=== PATIENT | male | born 1930 | race Caucasian/White ===

== ENCOUNTER 2016-10-03 20:04 | Observation (INO) | payer MEDICARE, OTHER ==
[~2016-10-03] VITALS: Ht 177.8 cm; Wt 55.2 kg
[~2016-10-03 20:04] MED LIST: AMIO200T PO; ASPI81TA82 PO; CARV3.125 PO; COMBAER INH; ENAL2.5T40 PO; LASI20TA PO; NEXI40CA PO; ROSU20 PO; SPIR25 PO; TRAM50 PO; WARF2TAB PO; Z.0.OXYGEN INH
[2016-10-03 20:05] VITALS: BP 124/75; PULSE 67; RESP 20; TEMP 98.8; O2SAT 97
[2016-10-03] MEDS ORDERED: ASPI1TAB73 PO (20:34)
[2016-10-03] MEDS ORDERED: FURO1TAB62 PO (20:34)
[2016-10-03] MEDS ORDERED: ROSU20 PO (20:34)
[2016-10-03] MEDS ORDERED: WARF4TAB51 PO (20:34)
[2016-10-03] MEDS ORDERED: POTA-243 PO (20:34)
[2016-10-03] MEDS ORDERED: SODIUM CHLORIDE 0.9% FLUSH 5 ML FLUSH IVF PRN ×2 (20:45→22:45)
--- NOTE | 2016-10-03 20:46 | PD ---
HPI Chief Complaint: Respiratory Symptoms Time Seen by Provider: 20:36 Travel History International Travel<30 days: No Contact w/Intl Traveler<30days: No Traveled to known affect area: No History of Present Illness HPI 86-year-old male presents to the emergency department by private transportation the care of his spouse for evaluation of feeling chilled and hot and weak with nonproductive cough for the past 1 or so days. is concerned because he is not breathing. Patient reports she's been mouth breathing on and off for the past month. Patient's had nonproductive cough. states she's had to keep the house at 80F in the home in order to keep him comfortable and he still complains of feeling chilled. Patient has history of atrial fibrillation and is treated with warfarin also has a pacemaker defibrillator is on amiodarone. Patient's had no changes medications. Dr. Rosales is his meteorological equipment repairer. Patient has not contacted his primary care provider regarding his hot and cold symptoms and cough. Patient denies any chest pain. Patient denies any current chills or feeling flushed or shortness of breath at this time. No report of orthopnea. Patient rates his pain 0/10 in intensity. PFSH Past Medical History Narrative Medical Atrial fibrillation on warfarin pacemaker dyslipidemia CHF COPD CVA CAD GERD hypertension sleep apnea; pacemaker defibrillator CABG AAA repair no tobacco use nursing notes reviewed PCP: Kenny; meteorological equipment repairer: Bobby Hx Anticoagulant Therapy: Yes Arthritis: Yes (HANDS) Asthma: No Heart Rhythm Problems: Yes Cancer: No Cardiac Catheterization: Yes Cardiovascular Problems: Yes (PACEMAKER) High Cholesterol: Yes Chest Pain: Yes Congestive Heart Failure: Yes COPD: Yes Cerebrovascular Accident: Yes (cva 2010) Coronary Artery Disease: Yes Endocrine: No GERD: Yes Genitourinary: Yes (FREQUENCY) Hiatal Hernia: Yes Hypertension: Yes Immune Disorder: Yes Kidney Stones: No Musculoskeletal: Yes Neurologic: Yes Psychiatric: No Reproductive: No Respiratory: Yes Migraines: No Renal Failure: No Seizures: No Sleep Apnea: Yes Ulcer: No Tetanus Vaccination: > 5 Years Influenza Vaccination: No Past Surgical History Abdominal Aneurysm Repair: Yes Abdominal Surgery: Yes (UMBILICAL; INGUINAL HERNIA REPAIR) Cardiac Surgery: Yes (CABG; aorta) Coronary Artery Bypass Graft: Yes Ear Surgery: No Endocrine Surgery: No Eye Surgery: No Genitourinary Surgery: No Gynecologic Surgery: No Oral Surgery: No Thoracic Surgery: No Other Surgery: Yes Social History Alcohol Use: Yes (OCCASSIONAL) Tobacco Use: No Substance Use: No Allergies-Medications (Allergen,Severity, Reaction): Coded Allergies: No Known Allergies (Verified , 10/03/16) Reported Meds & Prescriptions Reported Meds & Active Scripts Active Reported Crestor (Rosuvastatin Calcium) 20 Mg Tab 20 Mg PO DAILY Sigrid Aspirin EC Low Dose (Aspirin) 81 Mg Tabdr 81 Mg PO DAILY Lasix (Furosemide) 20 Mg Tab 20 Mg PO TWICE A WEEK Klor-Con 10 (Potassium Chloride) 10 Meq Tab 10 Meq PO DAILY Warfarin 2 Mg Tab 2 Mg PO DAILY Review of Systems Except as stated in HPI: all other systems reviewed are Neg General / Constitutional: Positive: Chills HENT: No: Congestion Cardiovascular: No: Chest Pain or Discomfort Respiratory: Positive: Cough, Shortness of Breath, No: Wheezing Gastrointestinal: No: Nausea, Vomiting, Abdominal Pain Genitourinary: Positive: Frequency, No: Dysuria Musculoskeletal: No: Myalgias, Arthralgias Skin: No Rash Neurologic: Positive: Weakness Psychiatric: No: Anxiety Hematologic/Lymphatic: No: Lymph Node Enlargement Physical Exam Narrative GENERAL: Elderly male in no acute distress no respiratory distress SKIN: Warm and dry. HEAD: Normocephalic. EYES: No scleral icterus. No injection or drainage. NECK: Supple, trachea midline. No JVD or lymphadenopathy. CARDIOVASCULAR: Regular rate and rhythm without murmurs, gallops, or rubs. RESPIRATORY: Breath sounds equal bilaterally crackles right base. No accessory muscle use. GASTROINTESTINAL: Abdomen soft, non-tender, nondistended. MUSCULOSKELETAL: No cyanosis, or edema. Radial and dorsalis pedis pulses 2+ to palpation. BACK: Nontender without obvious deformity. No CVA tenderness. Data Data Last Documented VS Vital Signs Date Time Temp Pulse Resp B/P Pulse Ox O2 Delivery O2 Flow Rate FiO2 10/03/16 21:20 97 Room Air 10/03/16 21:00 66 18 128/68 10/03/16 20:05 98.8 Orders Complete Blood Count With Diff (10/03/16 20:34) Comprehensive Metabolic Panel (10/03/16 20:34) B-Type Natriuretic Peptide (10/03/16 20:34) Prothrombin Time / Inr (Pt) (10/03/16 20:34) Magnesium (Mg) (10/03/16 20:34) Ckmb (Isoenzyme) Profile (10/03/16 20:34) Troponin I (10/03/16 20:34) Urinalysis - C+S If Indicated (10/03/16 20:34) Influenzae A/B Antigen (10/03/16 20:34) Blood Culture (10/03/16 20:34) Iv Access Insert/Monitor (10/03/16 20:34) Electrocardiogram (10/03/16 20:34) Ecg Monitoring (10/03/16 20:34) Oximetry (10/03/16 20:34) Oxygen Administration (10/03/16 20:34) Chest, Single Ap (10/03/16 20:34) Sodium Chloride 0.9% Flush (Ns Flush) (10/03/16 20:45) Lactic Acid (10/03/16 20:34) Ceftriaxone Inj (Rocephin Inj) (10/03/16 22:15) Furosemide Inj (Lasix Inj) (10/03/16 22:15) Labs Laboratory Tests Test 10/03/16 20:45 White Blood Count 11.3 TH/MM3 Red Blood Count 4.21 MIL/MM3 Hemoglobin 12.4 GM/DL Hematocrit 37.1 % Mean Corpuscular Volume 88.0 FL Mean Corpuscular Hemoglobin 29.4 PG Mean Corpuscular Hemoglobin 33.4 % Concent Red Cell Distribution Width 15.8 % Platelet Count 123 TH/MM3 Mean Platelet Volume 7.8 FL Neutrophils (%) (Auto) 88.4 % Lymphocytes (%) (Auto) 6.2 % Monocytes (%) (Auto) 4.6 % Eosinophils (%) (Auto) 0.3 % Basophils (%) (Auto) 0.5 % Neutrophils # (Auto) 10.0 TH/MM3 Lymphocytes # (Auto) 0.7 TH/MM3 Monocytes # (Auto) 0.5 TH/MM3 Eosinophils # (Auto) 0.0 TH/MM3 Basophils # (Auto) 0.1 TH/MM3 CBC Comment DIFF FINAL Differential Comment Prothrombin Time 18.7 SEC Prothromb Time International 1.7 RATIO Ratio Sodium Level 141 MEQ/L Potassium Level 4.4 MEQ/L Chloride Level 108 MEQ/L Carbon Dioxide Level 25.6 MEQ/L Anion Gap 7 MEQ/L Blood Urea Nitrogen 16 MG/DL Creatinine 1.00 MG/DL Estimat Glomerular Filtration 71 ML/MIN Rate Random Glucose 112 MG/DL Lactic Acid Level 1.4 mmol/L Calcium Level 9.3 MG/DL Magnesium Level 2.3 MG/DL Total Bilirubin 0.7 MG/DL Aspartate Amino Transf 22 U/L (AST/SGOT) Alanine Aminotransferase 30 U/L (ALT/SGPT) Alkaline Phosphatase 72 U/L Total Creatine Kinase 33 U/L Troponin I 0.04 NG/ML B-Type Natriuretic Peptide 551 PG/ML Total Protein 7.2 GM/DL Albumin 3.8 GM/DL [facility] Medical Decision Making Medical Screen Exam Complete: Yes Emergency Medical Condition: Yes Medical Record Reviewed: Yes Interpretation(s) EKG: Paced rhythm with intermittent atrial fibrillation rate [address] elevation Last Impressions Chest X-Ray 10/03/162033 Signed Impressions: Service Date/Time: September 20:37 - CONCLUSION: Suspected mild failure. No confluent infiltrates seen. Suhail Reyes MD Differential Diagnosis Viral syndrome, pneumonia, UTI, sepsis, ACS, CHF, exacerbation COPD, PE, Coumadin coagulopathy Narrative Course IV access obtained specimens collected and sent for resulting EKG performed which shows ventricular paced rhythm intermittent atrial fibrillation controlled ventricular rate no acute ST elevation Chest x-ray performed with reading radiologist report consistent with mild vascular congestion patient has unilateral crackles to the right base but imaging reportedly small bilateral pleural effusions CBC is automated differential total white cell count minimally elevated 11,300 with left shift 80% neutrophils however lactic acid is in normal range at 1.4 bicarbonate and anion gap are not prolonged Cardiac enzymes troponin I is upper limit of normal at 0.04 but not elevated; BNP is elevated at 551 At 10:26 PM patient remained supine with O2 saturations of 97-98% on room air and denying any orthopnea. Patient's blood pressure has decreased to 105/54. Patient has had shaking chills at home therefore more concerning that patient may have been identified pneumonia/early sepsis. Patient treated presumptively with Rocephin 1 g IVPB UA remains pending --specimen ordered as cath specimen. Physician Communication Physician Communication call placed to [facility] service -- will admit as obs aware of c/o chills and generalized weakness as well as mild cxr vascular congestion and elevated bnp Diagnosis Primary Impression: Dyspnea Qualified Code: R06.09 - Dyspnea on exertion Additional Impressions: CHF (congestive heart failure) Qualified Code: I50.9 - Congestive heart failure, unspecified congestive heart failure chronicity, unspecified congestive heart failure type Leukocytosis, unspecified Admitting Information Admitting Physician Requests: Kathi Ferrari MD Oct 03, 2016 20:46
--- NOTE | 2016-10-03 20:50 | RADHPO ---
EXAM DATE/TIME: 10/03/2016 20:37 [place] COMPARISON: No previous studies available for comparison. INDICATIONS : Shortness of breath. MEDICAL HISTORY : Cardiovascular disease. SURGICAL HISTORY : Pacemaker. CABG. ENCOUNTER: Initial ACUITY: 2 days PAIN SCORE: 1/10 LOCATION: Bilateral chest FINDINGS: Mild haziness seen throughout both lungs and with probable very small, bilateral pleural effusions. H eart size upper limits of normal. Patient has had previous median sternotomy and there is a cardiac p acer/defibrillator. No dense/confluent consolidation. No pneumothorax. CONCLUSION: Suspected mild failure. No confluent infiltrates seen. Suhail Reyes MD on October 03, 2016 at 20:47 Board Certified Radiologist. This report was verified electronically.
[2016-10-03 21:00] VITALS: BP 128/68; PULSE 66; RESP 18; O2SAT 97
[2016-10-03 21:03] LABS: BASOPHIL # 0.1 TH/MM3 (0-0.2); BASOPHIL % 0.5 % (0.0-2.0); EOSINOPHIL % 0.3 % (0.0-4.0); HEMATOCRIT 37.1 % (39.0-51.0); HEMO FLAGS DIFF FINAL; LYMPH % 6.2 % (9.0-44.0); LYMPHOCYTE # 0.7 TH/MM3 (1.0-4.8); MEAN CORPUSCULAR HEMOGLOBIN 29.4 PG (27.0-34.0); MEAN CORPUSCULAR HGB CONC 33.4 % (32.0-36.0); MONO % 4.6 % (0.0-8.0); NEUT % 88.4 % (16.0-70.0); PLATELET COUNT 123 TH/MM3 (150-450); RED BLOOD COUNT 4.21 MIL/MM3 (4.50-5.90); RED CELL DISTRIBUTION WIDTH 15.8 % (11.6-17.2); WHITE BLOOD COUNT 11.3 TH/MM3 (4.0-11.0)
[2016-10-03 21:10] LABS: CHLORIDE 108 MEQ/L (98-107); POTASSIUM 4.4 MEQ/L (3.5-5.1); SODIUM (NA) 141 MEQ/L (136-145)
[2016-10-03 21:14] LABS: ANION GAP 7 MEQ/L (5-15); BICARBONATE 25.6 MEQ/L (21.0-32.0); BLOOD UREA NITROGEN 16 MG/DL (7-18); INTERNATIONAL NORMALIZED RATIO 1.7 RATIO; MAGNESIUM 2.3 MG/DL (1.5-2.5); PROTHROMBIN TIME - PATIENT 18.7 SEC (9.8-11.6)
[2016-10-03 21:17] LABS: ALT (GPT) 30 U/L (12-78); AST (GOT) 22 U/L (15-37); GLOMERULAR FILTRATION RATE 71 ML/MIN (>89)
[2016-10-03 21:19] LABS: TOTAL BILIRUBIN ADULT 0.7 MG/DL (0.2-1.0)
[2016-10-03 21:20] LABS: ALKALINE PHOSPHATASE 72 U/L (45-117)
[2016-10-03 21:37] LABS: CREATINE KINASE 33 U/L (39-308)
[2016-10-03 22:00] VITALS: BP 105/58; PULSE 64; RESP 18; O2SAT 98
[2016-10-03] MEDS ORDERED: FUROSEMIDE 20 MG/2 ML VIAL IV PUSH ONE ×2 (22:15→22:45)
[2016-10-03] MEDS ORDERED: cefTRIAXone INJ 1,000 MG in SODIUM CHLORIDE 0.9% INJ 100 ML IV ONE (22:15)
[2016-10-03 22:40] LABS: BLOOD, URINE LARGE (NEG); GLUCOSE,URINE NEG (NEG); KETONE, URINE TRACE mg/dL (NEG); NITRITE,URINE NEG (NEG)
[2016-10-03] MEDS ORDERED: BISACODYL 10 MG SUPP PR PRN (22:45)
[2016-10-03] MEDS ORDERED: PROCHLORPERAZINE 25 MG SUPP PR PRN (22:45)
[2016-10-03] MEDS ORDERED: ONDANSETRON HCL 4 MG/2 ML VIAL IVP PRN (22:45)
[2016-10-03] MEDS ORDERED: ACETAMINOPHEN 325 MG TAB PO PRN (22:45)
[2016-10-03] MEDS ORDERED: SENNOSIDES 8.6 MG TAB PO PRN (22:45)
[2016-10-03] MEDS ORDERED: AZITHROMYCIN INJ 500 MG in SODIUM CHLOR 0.9% 250 ML INJ 250 ML IV SCH (22:45)
[2016-10-03] MEDS ORDERED: AZITHROMYCIN INJ 500 MG in SODIUM CHLOR 0.9% 250 ML INJ 250 ML IV ONE (22:45)
[2016-10-03] MEDS ORDERED: MAGNESIUM HYDROXIDE SUSP 30 ML CUP PO PRN (22:45)
[2016-10-03] MEDS ORDERED: SODIUM CHLORIDE 0.9% FLUSH 5 ML FLUSH FLUSH PRN (22:45)
[2016-10-03 22:48] LABS: URINE COLOR YELLOW (YELLW/STRAW); WBC, URINE 0-2 /hpf (0-5)
[2016-10-03 22:49] LABS: COMMENT (UR) CULT NOT INDICATED; CULTURE IF INDICATED CULT NOT INDICATED; RBC, URINE 100-200 /hpf (0-3); SQUAMOUS EPITHELIAL CELL URINE 0-5 /hpf (0-5)
[2016-10-03 23:16] VITALS: BP 113/68; PULSE 62; RESP 20; O2SAT 97
[2016-10-03 23:47] VITALS: BP 136/64; PULSE 60; RESP 18; TEMP 97
[2016-10-04] VITALS (11 sets, daily range): BP systolic 94–118; BP diastolic 54–76; PULSE 58–72; RESP 16–22; TEMP 97.2–98.1; O2SAT 96–98
[2016-10-04 04:44] LABS: AUTOMATED NEUTROPHIL # 6.9 TH/MM3 (1.8-7.7); BASOPHIL % 0.4 % (0.0-2.0); EOSINOPHIL # 0.1 TH/MM3 (0-0.4); EOSINOPHIL % 0.6 % (0.0-4.0); HEMATOCRIT 33.9 % (39.0-51.0); HEMO FLAGS DIFF FINAL; LYMPH % 18.2 % (9.0-44.0); LYMPHOCYTE # 1.7 TH/MM3 (1.0-4.8); MONO % 6.8 % (0.0-8.0); PLATELET COUNT 121 TH/MM3 (150-450); RED BLOOD COUNT 3.85 MIL/MM3 (4.50-5.90); RED CELL DISTRIBUTION WIDTH 15.8 % (11.6-17.2); WHITE BLOOD COUNT 9.3 TH/MM3 (4.0-11.0)
[2016-10-04 04:56] LABS: POTASSIUM 4.2 MEQ/L (3.5-5.1)
[2016-10-04 04:59] LABS: BICARBONATE 24.5 MEQ/L (21.0-32.0)
[2016-10-04] MEDS ORDERED: ASPIRIN EC 81 MG TABEC PO SCH (09:00)
[2016-10-04] MEDS ORDERED: SODIUM CHLORIDE 0.9% FLUSH 5 ML FLUSH FLUSH SCH (09:00)
[2016-10-04] MEDS ORDERED: ATORVASTATIN 40 MG TAB PO SCH (09:00)
[2016-10-04] MEDS ORDERED: FUROSEMIDE 20 MG/2 ML VIAL IV PUSH SCH (09:00)
[2016-10-04] MEDS ORDERED: SODIUM CHLORIDE 0.9% FLUSH 5 ML FLUSH IVF SCH (09:00)
[2016-10-04] MEDS ORDERED: POTASSIUM CHLORIDE 10 MEQ CONTROLLED RELEASE TAB PO SCH (09:00)
--- NOTE | 2016-10-04 10:14 | HHI.FF ---
Face to Face Verification Diagnosis: (1) CHF (congestive heart failure) (2) Dyspnea Physical Therapy Order: Evaluate and Treat, Improve ambulation, Strength and gait training Home Health Nursing Order: Medical education Signs/symptoms of disease process CHF education Nursing assessment with vital signs I have seen patient Juan Nguyen on 10/04/16. My clinical findings support the need for the requested home health care services because: Deconditioned w/ increased weakness Limited ability to care for self I certify that my clinical findings support that this patient is homebound because: Unsteady gait/balance Shane Glaser Oct 04, 2016 10:14
--- NOTE | 2016-10-04 10:15 | HHI.DCPOC ---
Discharge Care Plan Diagnosis: (1) CHF (congestive heart failure) (2) Dyspnea Goals to Promote Your Health * To prevent worsening of your condition and complications * To maintain your health at the optimal level Directions to Meet Your Goals Take your medications as prescribed Follow your dietary instruction Follow activity as directed Keep your appointments as scheduled Take your immunizations and boosters as scheduled If your symptoms worsen call your PCP, if no PCP go to Urgent Care Center or Emergency Room Smoking is Dangerous to Your Health. Avoid second hand smoke Call the 24-hour hour crisis hotline for domestic abuse at Shane Glaser Oct 04, 2016 10:15
--- NOTE | 2016-10-04 10:35 | HHI.HP ---
[facility] Tad Cox MD Admission Diagnosis dyspnea; mild chf; generalized weakness/poss early pneumonia Diagnoses: (1) Acute on chronic systolic congestive heart failure Diagnosis: Principal (2) Leukocytosis Diagnosis: Principal (3) Atrial fibrillation Diagnosis: Secondary (4) Coronary artery disease Diagnosis: Secondary (5) Hyperlipidemia Diagnosis: Secondary Chief Complaint: Cough Travel History International Travel<30 Days: No Contact w/Intl Traveler <30 Da: No Traveled to Known Affected Are: No History of Present Illness 86 year-old male with known history of coronary artery disease status post CABG, history myocardial infarction, atrial fibrillation, cardiomyopathy, chronic systolic congestive heart failure, chronic obstructive pulmonary disease , history of CVA with right-sided weakness who presented to hospital because of cough. Patient is completely alert and orientated. Patient indicates for last 2 days he has had a cough without any phlegm production. Patient came to emergency department for evaluation. Patient had chest x-ray done which did show some mild congestive pattern and elevated BNP. Patient denies any chest pain, shortness of breath, dyspnea, edema. Patient denied any other reason why he came to the hospital other than the cough. Records indicate that the spells brought him to the hospital because he has been feeling chilled and hot with weakness. Workup did indicate mild leukocytosis which has resolved. Patient clinically improved upon seen in this morning. He is asking to go home. Review of Systems Constitutional: DENIES: Diaphoretic episodes, Fatigue, Fever, Weight gain, Weight loss, Chills, Dizziness, Change in appetite, Night Sweats Eyes: DENIES: Blurred vision, Diplopia, Eye inflammation, Eye pain, Vision loss , Double Vision Ears, nose, mouth, throat: DENIES: Vertigo, Nasal discharge, Throat pain, Ear Pain, Running Nose, Sinus Pain Respiratory: COMPLAINS OF: Cough, DENIES: Apneas, Snoring, Wheezing, Hemoptysis, Sputum production, Shortness of breath Cardiovascular: DENIES: Chest pain, Palpitations, Syncope, Dyspnea on Exertion , Lower Extremity Edema, Orthopnea Neurologic: COMPLAINS OF: Localized weakness (right lower extremity), DENIES: Abnormal gait, Headache, Paresthesias, Seizures, Speech Problems, Tremor, Poor Balance Psychiatric: DENIES: Anxiety, Confusion, Mood changes, Depression Past Family Social History Past Medical History Hyperlipidemia Coronary disease History myocardial infarction Chronic systolic congestive heart failure Cardiomyopathy Chronic obstructive pulmonary disease Chronic atrial fibrillation History of CVA Gastroesophageal reflux History of abdominal aortic aneurysm Past Surgical History Coronary artery bypass graft Abdominal aortic repair Inguinal hernia repair Umbilical hernia. Thoracentesis Permanent pacemaker placement Reported Medications Reported Meds & Active Scripts Active Reported Crestor (Rosuvastatin Calcium) 20 Mg Tab 20 Mg PO DAILY Sigrid Aspirin EC Low Dose (Aspirin) 81 Mg Tabdr 81 Mg PO DAILY Lasix (Furosemide) 20 Mg Tab 20 Mg PO TWICE A WEEK Klor-Con 10 (Potassium Chloride) 10 Meq Tab 10 Meq PO DAILY Warfarin 2 Mg Tab 2 Mg PO DAILY Allergies: Coded Allergies: No Known Allergies (Verified , 10/03/16) Family History Reviewed is significant for both mother and father having myocardial infarction. Father had gangrene Social History Patient quit smoking over 40 years ago. Denies any alcohol or illicit drugs Physical Exam Vital Signs Vital Signs Date Time Temp Pulse Resp B/P Pulse Ox O2 Delivery O2 Flow Rate FiO2 10/04/16 08:00 59 10/04/16 04:00 97.2 60 16 94/54 96 10/04/16 04:00 60 10/04/16 01:43 97 21 10/04/16 01:40 62 17 104/64 97 10/04/16 01:35 98.1 61 20 107/65 96 10/04/16 00:49 62 18 112/59 97 Room Air 10/03/16 23:47 97.0 60 18 136/64 Room Air 10/03/16 23:16 62 20 113/68 97 Room Air 10/03/16 22:25 Room Air 10/03/16 22:00 64 18 105/58 98 Room Air 10/03/16 21:20 97 Room Air 10/03/16 21:20 Room Air 10/03/16 21:00 66 18 128/68 97 Room Air 10/03/16 20:25 97 Room Air 10/03/16 20:05 98.8 67 20 124/75 97 Physical Exam GENERAL: Well-developed, well-nourished, in no acute distress. alert and orientated HEENT: Head is normocephalic without any lesions or masses noted. Facial features are symmetric. Eyes: Pupils equal round reactive to light. Extraocular muscles are intact. Conjunctivae were clear. Oropharyngeal: Pharynx without any erythema edema. Tongue is midline without deviation. Buccal mucosa is moist without any masses or lesions NECK: Supple without any masses. Trachea midline no deviation. No JVD, no bruits are appreciated CARDIAC: Regular rhythm, regular rate. S1/S2 are heard. No murmurs gallops or rubs. Point pacemaker noted in the left anterior chest LUNGS: Clear to auscultation bilaterally. No wheeze, rhonchi or rales. No use of accessory muscles on inspiration or expiration. ABDOMEN: Soft, nontender. Nondistended. Bowel sounds heard in all 4 quadrants. No organomegaly or masses. Negative rebound, negative guarding EXTREMITIES: No edema, pulses are equal bilaterally. No cyanosis or clubbing NEUROLOGY: Mood and affect appear appropriate. Cranial nerves II through XII grossly intact. Muscle strength 5/5 in upper and lower extremities bilaterally. Deep tendon reflexes are 2+ in upper and lower extremities bilaterally. Laboratory Laboratory Tests Test 10/03/16 10/03/16 10/04/16 20:45 22:30 04:14 White Blood Count 11.3 9.3 Red Blood Count 4.21 3.85 Hemoglobin 12.4 11.2 Hematocrit 37.1 33.9 Mean Corpuscular Volume 88.0 88.0 Mean Corpuscular Hemoglobin 29.4 29.0 Mean Corpuscular Hemoglobin 33.4 33.0 Concent Red Cell Distribution Width 15.8 15.8 Platelet Count 123 121 Mean Platelet Volume 7.8 8.0 Neutrophils (%) (Auto) 88.4 74.0 Lymphocytes (%) (Auto) 6.2 18.2 Monocytes (%) (Auto) 4.6 6.8 Eosinophils (%) (Auto) 0.3 0.6 Basophils (%) (Auto) 0.5 0.4 Neutrophils # (Auto) 10.0 6.9 Lymphocytes # (Auto) 0.7 1.7 Monocytes # (Auto) 0.5 0.6 Eosinophils # (Auto) 0.0 0.1 Basophils # (Auto) 0.1 0.0 CBC Comment DIFF FINAL DIFF FINAL Differential Comment Prothrombin Time 18.7 Prothromb Time International 1.7 Ratio Sodium Level 141 141 Potassium Level 4.4 4.2 Chloride Level 108 108 Carbon Dioxide Level 25.6 24.5 Anion Gap 7 9 Blood Urea Nitrogen 16 15 Creatinine 1.00 0.98 Estimat Glomerular Filtration 71 72 Rate Random Glucose 112 102 Lactic Acid Level 1.4 Calcium Level 9.3 9.4 Magnesium Level 2.3 Total Bilirubin 0.7 Aspartate Amino Transf 22 (AST/SGOT) Alanine Aminotransferase 30 (ALT/SGPT) Alkaline Phosphatase 72 Total Creatine Kinase 33 Troponin I 0.04 B-Type Natriuretic Peptide 551 Total Protein 7.2 Albumin 3.8 Urine Color YELLOW Urine Turbidity SLIGHT Urine pH 7.0 Urine Specific [place] 1.020 Urine Protein TRACE Urine Glucose (UA) NEG Urine Ketones TRACE Urine Occult Blood LARGE Urine Nitrite NEG Urine Bilirubin NEG Urine Leukocyte Esterase NEG Urine RBC 100-200 Urine WBC 0-2 Urine Squamous Epithelial 0-5 Cells Urine Bacteria NONE Microscopic Urinalysis Comment CULT NOT INDICATED Date/Time Procedure Status Source Growth 10/03/16 20:55 Influenza Types A,B Antigen ([facility]) - Final Complete Nasal Washing NEGATIVE FOR FLU A AND B ANTIGEN.... 10/03/16 20:45 Aerobic Blood Culture Received Blood Peripheral Pending 10/03/16 20:45 Anaerobic Blood Culture Received Blood Peripheral Pending Result Diagram: 10/04/1641310/04/16413 Imaging Last Impressions Chest X-Ray 10/03/162033 Signed Impressions: Service Date/Time: September 20:37 - CONCLUSION: Suspected mild failure. No confluent infiltrates seen. Suhail Reyes MD Assessment and Plan Assessment and Plan Acute on chronic systolic congestive heart failure, improved Patient presented with cough, objective findings found to include mild congestive pattern on chest x-ray, elevated BNP Lasix 20 mg IV daily, converted to by mouth medication Awaiting echocardiogram Patient blood pressure too low to initiate ARSH inhibitor Patient to have close follow-up with his statistics tutor Dr. Rosales Chronic atrial fibrillation Continued Coumadin for anticoagulation Mild leukocytosis, resolved Continue monitor CBC Coronary artery disease, cardiomyopathy, hyperlipidemia, pleural effusion resume home medications DVT prevention Patient is on Coumadin Written by Shane Glaser PA-C, acting as scribe for Dr. Tomas on 10/04/16 at Time. The documentation accurately reflects the work and decisions performed face-to- face by Dr. Tomas on 10/04/16 at Time. Discharge disposition Case management consulted for discharge planning. Patient will be discharged home with home health care was arranged Activity: Ad hany. Diet: Healthy heart diet Medications per medication reconciliation Follow-up primary medical doctor in one week Code Status Full code Problem Qualifiers (1) Coronary artery disease: Qualified Code: I25.10 - Coronary artery disease, angina presence unspecified, unspecified vessel or lesion type, unspecified whether [place] or transplanted heart (2) Hyperlipidemia: Qualified Code: E78.4 - Other hyperlipidemia Shane Glaser Oct 04, 2016 10:35
--- NOTE | 2016-10-04 15:36 | EKG ---
Date Performed: 10/03/2016 Time Performed: 20:24:24 PTAGE: 86 years EKG: Underlying atrial fibrillation with ventricular pacing Severe right axis deviation Right bu ndle branch block Inferior infarct - age undetermined Possible lateral infarct - age undetermined Abn ormal ECG PREVIOUS TRACING : 07/16/2011 05.05 Compared to previous tracing, the patient is now ventricula r paced. DOCTOR: Ana Dela Cruz Interpretating Date/Time 10/04/2016 15:36:37
[2016-10-04] MEDS ORDERED: WARFARIN SOD 2 MG TAB PO SCH (16:00)
--- NOTE | 2016-10-04 17:26 | EC ---
Study Study Date:10/04/2016 STUDY CONCLUSIONS SUMMARY - Procedure narrative: Transthoracic echocardiography. Image quality was fair. The study was technically limited due to poor acoustic window availability. Scanning was performed from the parasternal, apical, and subcostal acoustic windows. - Left ventricle: The cavity size was moderately dilated. Systolic function was severely reduced. The estimated ejection fraction was in the range of 15% to 20%. Diffuse hypokinesis. - Mitral valve: Mobility of the posterior leaflet was moderately restricted. Moderate regurgitation. - Left atrium: The atrium was moderately dilated. - Tricuspid valve: Moderate regurgitation. If LV function is below 40, please consider prescribing an ACEI or ARB or document rationale for non-use. PROCEDURE DATA STUDY STATUS: Elective. Procedure: Transthoracic echocardiography. Image quality was fair. The study was technically limited due to poor acoustic window availability. Scanning was performed from the parasternal, apical, and subcostal acoustic windows. Study completion: The patient tolerated the procedure well. Transthoracic echocardiography. M-mode, complete 2D, complete spectral Doppler, and color Doppler. Patient status: Inpatient. CARDIAC ANATOMY LEFT VENTRICLE: The cavity size was moderately dilated. Systolic function was severely reduced. The estimated ejection fraction was in the range of 15% to 20%. Diffuse hypokinesis. AORTIC VALVE: Mildly calcified leaflets. Doppler: There was no stenosis. Trace to mild regurgitation. MITRAL VALVE: Mobility of the posterior leaflet was moderately restricted. Doppler: There was no evidence for stenosis. Moderate regurgitation. LEFT ATRIUM: The atrium was moderately dilated. PULMONIC VALVE: Not well visualized. Doppler: There was no evidence for stenosis. No significant regurgitation. TRICUSPID VALVE: The valve appears to be grossly normal. Doppler: There was no evidence for stenosis. Moderate regurgitation. BASIC MEASUREMENTS ADULT Normal Left ventricle LV internal dimension, ED, chordal level, *60.7 mm 43-52 PLAX LV internal dimension, ES, chordal level, *56.4 mm 23-38 PLAX Fractional shortening, chordal level, PLAX *7 % >29 LV posterior wall thickness, ED 11.1 mm IVS/LVPW ratio, ED 1.05 <1.3 Ventricular septum Septal thickness, ED 11.7 mm Aortic valve Leaflet separation 21 mm 15-26 Right ventricle RV internal dimension, ED, PLAX 26.2 mm 19-38 BASIC MEASUREMENTS ADULT Normal Aortic valve Leaflet separation 21 mm 15-26 Aorta Root diameter, ED *39 mm 20-37 Left atrium Anterior-posterior dimension, ES *49 mm 19-40 LA/aortic root ratio 1.26 DOPPLER MEASUREMENTS ADULT Normal Main pulmonary artery Pressure, S *38 mm Hg =30 Tricuspid valve Regurgitant peak velocity 265 cm/s Peak RV-RA gradient, S 28 mm Hg Maximal regurgitant velocity 265 cm/s Systemic veins Estimated CVP 10 mm Hg Right ventricle RV pressure, S *38 mm Hg <30 LEGEND: Mean values are shown as u=mean value. Asterisk (*) [place] values outside specified normal range. Prepared and signed by Stevie Copeland [id number]
[2016-10-04] MEDS ORDERED: cefTRIAXone INJ 1,000 MG in SODIUM CHLORIDE 0.9% INJ 100 ML IV SCH (22:00)
--- NOTE | 2016-10-04 22:27 | EKG ---
Date Performed: 10/04/2016 Time Performed: 08:47:42 PTAGE: 86 years EKG: Demand pacing. Pacemaker rhythm - no further analysis Abnormal ECG PREVIOUS TRACING : 10/03/2016 20.24 Since previous tracing, no significant change noted DOCTOR: Stevie Copeland Interpretating Date/Time 10/04/2016 22:27:03
[2016-10-05] MEDS ORDERED: FUROSEMIDE 20 MG TAB PO SCH (09:00)
== END 2016-10-04 17:45 | disposition home health service (06) ==
LOC: PHED 20:04 → PHEDA 22:44 → PHICU 10-04 01:36
PROVIDERS: ADMIT Family Medicine; ATTEND Family Medicine
DX: I11.0 Hypertensive heart disease with heart failure (principal); R06.00 Dyspnea, unspecified; I50.23 Acute on chronic systolic (congestive) heart failure; I25.10 Atherosclerotic heart disease of native coronary artery without angina pectoris; I48.2 Chronic atrial fibrillation; I42.9 Cardiomyopathy, unspecified; I25.2 Old myocardial infarction; D72.829 Elevated white blood cell count, unspecified; E78.5 Hyperlipidemia, unspecified; J44.9 Chronic obstructive pulmonary disease, unspecified; G47.30 Sleep apnea, unspecified; Z79.01 Long term (current) use of anticoagulants; Z95.1 Presence of aortocoronary bypass graft; Z86.73 Personal history of transient ischemic attack (TIA), and cerebral infarction without residual deficits; Z95.0 Presence of cardiac pacemaker
CPT/HCPCS: 71010; 80048; 80053; 81001; 82550; 83605; 83735; 83880; 84484; 85025; 85610; 87040; 87804; 93005; 93306; 96374; 97162; 99285; G0378; G8987; G8988; J0456; J0696; J1940; J7050

== ENCOUNTER → 2016-10-16 | Outpatient (CLI) | payer MEDICARE, OTHER ==
[~2016-10-16] MED LIST changes: -AMIO200T PO; +ASPI1TAB73 PO; -ASPI81TA82 PO; -CARV3.125 PO; -COMBAER INH; -ENAL2.5T40 PO; +FURO1TAB62 PO; -LASI20TA PO; -NEXI40CA PO; +POTA-243 PO; -SPIR25 PO; -TRAM50 PO; -WARF2TAB PO; +WARF4TAB51 PO; -Z.0.OXYGEN INH
[2016-10-16 13:10] LABS: INTERNATIONAL NORMALIZED RATIO 1.4 RATIO; PROTHROMBIN TIME - PATIENT 15.3 SEC (9.8-11.6)
== END ==
LOC: PLAB 09:47
PROVIDERS: ATTEND Internal Medicine Cardiovascular Disease
DX: I48.0 Paroxysmal atrial fibrillation (principal)
CPT/HCPCS: 36415; 85610

== ENCOUNTER → 2016-11-06 | Outpatient (CLI) | payer MEDICARE, OTHER ==
[2016-11-06 11:33] LABS: INTERNATIONAL NORMALIZED RATIO 1.9 RATIO; PROTHROMBIN TIME - PATIENT 21.4 SEC (9.8-11.6)
== END ==
LOC: PLAB 10:57
PROVIDERS: ATTEND Internal Medicine Cardiovascular Disease
DX: I48.2 Chronic atrial fibrillation (principal)
CPT/HCPCS: 36415; 85610

== ENCOUNTER → 2016-12-18 | Outpatient (CLI) | payer MEDICARE, OTHER ==
[2016-12-18 10:56] LABS: INTERNATIONAL NORMALIZED RATIO 1.3 RATIO; PROTHROMBIN TIME - PATIENT 14.7 SEC (9.8-11.6)
== END ==
LOC: PLAB 09:44
PROVIDERS: ATTEND Internal Medicine Cardiovascular Disease
DX: I48.2 Chronic atrial fibrillation (principal)
CPT/HCPCS: 36415; 85610

== ENCOUNTER → 2017-01-09 | Outpatient (CLI) | payer MEDICARE, OTHER ==
[2017-01-09 12:31] LABS: INTERNATIONAL NORMALIZED RATIO 3.2 RATIO; PROTHROMBIN TIME - PATIENT 37.1 SEC (9.8-11.6)
== END ==
LOC: PLAB 10:33
PROVIDERS: ATTEND Internal Medicine Cardiovascular Disease
DX: I48.2 Chronic atrial fibrillation (principal)
CPT/HCPCS: 36415; 85610

== ENCOUNTER 2017-06-24 09:48 | Inpatient (IN) | payer MEDICARE, OTHER ==
[~2017-06-24] VITALS: Ht 177.8 cm; Wt 63.2 kg
[2017-06-24] VITALS (9 sets, daily range): BP systolic 108–135; BP diastolic 57–71; PULSE 60–66; RESP 15–24; TEMP 97.1–99.4; O2SAT 94–99
[2017-06-24] MEDS ORDERED: SODIUM CHLORIDE 0.9% FLUSH 5 ML FLUSH IV FLUSH PRN (10:15)
[2017-06-24 10:24] LABS: BASOPHIL % 0.5 % (0.0-2.0); EOSINOPHIL % 0.1 % (0.0-4.0); HEMATOCRIT 36.4 % (39.0-51.0); LYMPH % 15.4 % (9.0-44.0); LYMPHOCYTE # 0.8 TH/MM3 (1.0-4.8); MEAN CELL VOLUME 90.7 FL (80.0-100.0); MEAN CORPUSCULAR HEMOGLOBIN 29.9 PG (27.0-34.0); MONO % 11.1 % (0.0-8.0); NEUT % 72.9 % (16.0-70.0); PLATELET COUNT 82 TH/MM3 (150-450); RED BLOOD COUNT 4.02 MIL/MM3 (4.50-5.90); RED CELL DISTRIBUTION WIDTH 16.4 % (11.6-17.2); WHITE BLOOD COUNT 5.5 TH/MM3 (4.0-11.0)
[2017-06-24 10:25] LABS: HEMO FLAGS AUTO DIFF
[2017-06-24 10:36] LABS: ALT (GPT) 22 U/L (12-78)
[2017-06-24 10:40] LABS: ALKALINE PHOSPHATASE 73 U/L (45-117); PROTHROMBIN TIME - PATIENT 12.6 SEC (9.8-11.6); TOTAL BILIRUBIN ADULT 1.2 MG/DL (0.2-1.0)
[2017-06-24 10:43] LABS: APTT (PATIENT) 25.4 SEC (24.3-30.1); INTERNATIONAL NORMALIZED RATIO 1.1 RATIO
[2017-06-24 10:44] LABS: CREATINE KINASE 78 U/L (39-308)
[2017-06-24 10:45] LABS: ACETAMINOPHEN LESS THAN 2.0 MCG/ML (10.0-30.0); ANION GAP 9 MEQ/L (5-15); AST (GOT) 23 U/L (15-37); BICARBONATE 18.2 MEQ/L (21.0-32.0); BLOOD UREA NITROGEN 15 MG/DL (7-18); CHLORIDE 109 MEQ/L (98-107); GLOMERULAR FILTRATION RATE 71 ML/MIN (>89); POTASSIUM 4.5 MEQ/L (3.5-5.1); SODIUM (NA) 136 MEQ/L (136-145)
[2017-06-24 11:23] LABS: ACANTHOCYTES 1+ (NORMAL); KERATOCYTES OCC (NORMAL); OVALOCYTES 1+ (NORMAL)
[2017-06-24 11:24] LABS: PLATELET ESTIMATE SMEAR LOW (NORMAL); PLATELET MORPHOLOGY NORMAL (NORMAL); SCAN/DIFF AUTO DIFF CONFIRMED
--- NOTE | 2017-06-24 11:28 | PD ---
HPI Chief Complaint: General Weakness Time Seen by Provider: 09:45 Travel History International Travel<30 days: No Contact w/Intl Traveler<30days: No Traveled to known affect area: No History of Present Illness HPI Mr. Nguyen is a 86-year-old male with past medical history of hypertension, heart failure, and stroke who presented to the ED with weakness in his legs. He states that this started about a week ago when he began to be unable to walk. At baseline he walks freely with a walker. EMS was called to his house twice this week. First time was yesterday when they move him to his bed. The second time was today when they brought him to the ED for because of him being unable to move. He has also developed a cough that started a few days ago productive of white sputum. Of note, he stopped taking his Lasix a month ago because of urinary frequency. He is still having urinary frequency off of the medication. He is also feeling a little short of breath today. No fevers or chills, no night sweats, he has a good appetite. States that he has never felt like this before. PFSH Past Medical History Hx Anticoagulant Therapy: Yes (WARFARIN ) Arthritis: Yes (HANDS) Asthma: No Heart Rhythm Problems: Yes (underlying afib) Cancer: No Cardiac Catheterization: Yes Cardiovascular Problems: Yes High Cholesterol: Yes Chest Pain: Yes Congestive Heart Failure: Yes COPD: Yes Cerebrovascular Accident: Yes (cva 2010) Coronary Artery Disease: Yes Diminished Hearing: No Endocrine: No GERD: Yes Genitourinary: Yes (FREQUENCY) Hiatal Hernia: Yes Hypertension: Yes Immune Disorder: No Kidney Stones: No Musculoskeletal: Yes Neurologic: Yes (r sided weakness, walks with cane/walker) Psychiatric: No Reproductive: No Respiratory: Yes Immunizations Current: No Migraines: No Renal Failure: No Seizures: No Sleep Apnea: Yes Ulcer: No Tetanus Vaccination: Unknown Influenza Vaccination: No Past Surgical History Abdominal Aneurysm Repair: Yes Abdominal Surgery: Yes (UMBILICAL; R INGUINAL HERNIA REPAIR) Cardiac Surgery: Yes (1979 CABG; aorta, pacemaker3-54 yrs ago) Coronary Artery Bypass Graft: Yes Ear Surgery: No Endocrine Surgery: No Eye Surgery: No Genitourinary Surgery: No Gynecologic Surgery: No Oral Surgery: No Thoracic Surgery: No Other Surgery: Yes Social History Alcohol Use: Yes (OCCASSIONAL) Tobacco Use: No (QUIT ) Substance Use: No Allergies-Medications (Allergen,Severity, Reaction): Coded Allergies: No Known Allergies (Verified , 06/24/17) Reported Meds & Prescriptions Reported Meds & Active Scripts Active Reported Crestor (Rosuvastatin Calcium) 20 Mg Tab 20 Mg PO DAILY Sigrid Aspirin EC Low Dose (Aspirin) 81 Mg Tabdr 81 Mg PO DAILY Warfarin 2 Mg Tab 2 Mg PO DAILY Review of Systems General / Constitutional: No: Fever, Chills Cardiovascular: No: Chest Pain or Discomfort Respiratory: Positive: Cough (productive of white sputum), Shortness of Breath Gastrointestinal: No: Abdominal Pain, Loss of Appetite Genitourinary: Positive: Frequency, No: Dysuria Neurologic: Positive: Weakness Physical Exam Narrative GENERAL: Undernourished, well-developed patient laying in bed. SKIN: Warm and dry. HEAD: Normocephalic. EYES: No scleral icterus. No injection or drainage. NECK: Supple, trachea midline. No JVD or lymphadenopathy. CARDIOVASCULAR: Regular rate and rhythm without murmurs, gallops, or rubs. Pacemaker in left chest RESPIRATORY: Breath sounds equal bilaterally. No accessory muscle use. Decreased air movement. Soft wheezes at left anterior. GASTROINTESTINAL: Abdomen soft, non-tender, nondistended. EXTREMITIES: No cyanosis, or edema. NEUROLOGICAL: Awake, alert. Non-focal. 3/5 strength in bilateral LE's Data Data Last Documented VS Vital Signs Date Time Temp Pulse Resp B/P (MAP) Pulse Ox O2 Delivery O2 Flow Rate FiO2 06/24/17 09:56 98 Room Air 06/24/17 09:55 99.4 60 24 126/70 (88) Orders Orders Electrocardiogram (06/24/17 10:01) Ammonia (06/24/17 10:01) Complete Blood Count With Diff (06/24/17 10:01) Comprehensive Metabolic Panel (06/24/17 10:01) Creatine Kinase (Cpk) (06/24/17 10:01) Prothrombin Time / Inr (Pt) (06/24/17 10:01) Act Partial Throm Time (Ptt) (06/24/17 10:01) Troponin I (06/24/17 10:01) Urinalysis - C+S If Indicated (06/24/17 10:01) Lactic Acid Sepsis Protocol (06/24/17 10:01) Blood Culture (06/24/17 10:01) Chest, Single Ap (06/24/17 10:01) Blood Glucose (06/24/17 10:01) Ecg Monitoring (06/24/17 10:01) Iv Access Insert/Monitor (06/24/17 10:01) Oximetry (06/24/17 10:01) Sodium Chloride 0.9% Flush (Ns Flush) (06/24/17 10:15) Drug Screen, Random Urine (06/24/17 10:01) Tylenol (Acetaminophen) (06/24/17 10:01) Salicylates (Aspirin) (06/24/17 10:01) B-Type Natriuretic Peptide (06/24/17 10:01) Labs Laboratory Tests Test 06/24/17 10:05 06/24/17 10:09 White Blood Count 5.5 TH/MM3 Red Blood Count 4.02 MIL/MM3 Hemoglobin 12.0 GM/DL Hematocrit 36.4 % Mean Corpuscular Volume 90.7 FL Mean Corpuscular Hemoglobin 29.9 PG Mean Corpuscular Hemoglobin Concent 33.0 % Red Cell Distribution Width 16.4 % Platelet Count 82 TH/MM3 Mean Platelet Volume 8.4 FL Neutrophils (%) (Auto) 72.9 % Lymphocytes (%) (Auto) 15.4 % Monocytes (%) (Auto) 11.1 % Eosinophils (%) (Auto) 0.1 % Basophils (%) (Auto) 0.5 % Neutrophils # (Auto) 4.0 TH/MM3 Lymphocytes # (Auto) 0.8 TH/MM3 Monocytes # (Auto) 0.6 TH/MM3 Eosinophils # (Auto) 0.0 TH/MM3 Basophils # (Auto) 0.0 TH/MM3 CBC Comment AUTO DIFF Prothrombin Time 12.6 SEC Prothromb Time International Ratio 1.1 RATIO Activated Partial Thromboplast Time 25.4 SEC Blood Urea Nitrogen 15 MG/DL Creatinine 1.00 MG/DL Random Glucose 83 MG/DL Total Protein 7.0 GM/DL Albumin 3.3 GM/DL Calcium Level 9.7 MG/DL Alkaline Phosphatase 73 U/L Aspartate Amino Transf (AST/SGOT) 23 U/L Alanine Aminotransferase (ALT/SGPT) 22 U/L Total Bilirubin 1.2 MG/DL Sodium Level 136 MEQ/L Potassium Level 4.5 MEQ/L Chloride Level 109 MEQ/L Carbon Dioxide Level 18.2 MEQ/L Anion Gap 9 MEQ/L Estimat Glomerular Filtration Rate 71 ML/MIN Lactic Acid Level 1.5 mmol/L Total Creatine Kinase 78 U/L Troponin I 0.05 NG/ML Salicylates Level LESS THAN 1.7 MG/DL Acetaminophen Level LESS THAN 2.0 MCG/ML Ammonia 20 MCMOL/L MDM Medical Decision Making Medical Screen Exam Complete: Yes Emergency Medical Condition: Yes Differential Diagnosis Pneumonia vs Heart failure vs UTI Narrative Course -Generalized weakness- may be due to deconditioning -Heart failure exacerbation Chest XR clear BNP- 625 IV Lasix x1 40mg given in ED UA pending Admitting Information Admitting Physician Requests: Admit Lisa Oconnor MD R1 Jun 24, 2017 11:28
--- NOTE | 2017-06-24 11:51 | RADRPT ---
EXAM DATE/TIME: 06/24/2017 10:23 [facility] COMPARISON: CHEST SINGLE AP, October 03, 2016, 20:37. INDICATIONS : Fever. Patient states he has not been out of bed in a week. Weakness. MEDICAL HISTORY : Congestive heart failure. Cardiovascular disease. SURGICAL HISTORY : CABG. Pacemaker. ENCOUNTER: Initial ACUITY: 1 week PAIN SCORE: 0/10 LOCATION: Bilateral chest FINDINGS: Pacemaker device is noted with control pack over the left chest. There is stable slight elevation or eventration of the right diaphragm. Stable right peritracheal soft tissue prominence is likely tortuo us vascularity. There is no definite evidence of focal infiltrate or significant effusion. Cardiac co ntours are stable. CONCLUSION: Stable chest appearance. Suhail Tang MD on June 24, 2017 at 11:47 Board Certified Radiologist. This report was verified electronically.
[2017-06-24] MEDS ORDERED: FUROSEMIDE 40 MG/4 ML VIAL IV PUSH ONE (12:15)
[2017-06-24] MEDS ORDERED: BISACODYL 10 MG SUPP RECTAL PRN (12:30)
[2017-06-24] MEDS ORDERED: SODIUM CHLORIDE 0.9% FLUSH 10 ML FLUSH IV FLUSH PRN ×2 (12:30)
[2017-06-24] MEDS ORDERED: MORPHINE SULFATE 4 MG/ML INJ IV PUSH PRN ×2 (12:30)
[2017-06-24] MEDS ORDERED: ATORVASTATIN 40 MG TAB PO SCH (12:30)
[2017-06-24] MEDS ORDERED: ACETAMINOPHEN 325 MG TAB PO PRN ×2 (12:30)
[2017-06-24] MEDS ORDERED: ONDANSETRON HCL 4 MG/2 ML VIAL IVP PRN (12:30)
[2017-06-24] MEDS ORDERED: LACTULOSE SYRUP 20 GM/30 ML CUP PO PRN (12:30)
[2017-06-24] MEDS ORDERED: PROCHLORPERAZINE 25 MG SUPP RECTAL PRN (12:30)
[2017-06-24] MEDS ORDERED: oxyCODONE/ACETAMINOPHEN 10 MG/325 MG TAB PO PRN (12:30)
[2017-06-24] MEDS ORDERED: SENNOSIDES 8.6 MG TAB PO PRN (12:30)
[2017-06-24] MEDS ORDERED: oxyCODONE/ACETAMINOPHEN 5 MG/325 MG TAB PO PRN (12:30)
[2017-06-24] MEDS ORDERED: MAGNESIUM HYDROXIDE SUSP 30 ML CUP PO PRN (12:30)
[2017-06-24] MEDS ORDERED: NALOXONE HCL 0.4 MG/ML AMP IV PUSH PRN (12:30)
--- NOTE | 2017-06-24 12:54 | EKG ---
Date Performed: 06/24/2017 Time Performed: 09:56:34 PTAGE: 86 years EKG: Atrial fibrillation with 100% ventricular pacing ABNORMAL RHYTHM ECG PREVIOUS TRACING : 10/04/2016 08.47 Similar to the old EKG. DOCTOR: Burke Lopez Interpretating Date/Time 06/24/2017 12:53:39
[2017-06-24 13:12] LABS: BLOOD, URINE TRACE (NEG); GLUCOSE,URINE NEG (NEG); KETONE, URINE 10 mg/dL (NEG); MUCUS URINE FEW /lpf (OCC); NITRITE,URINE NEG (NEG); PH, URINE 6.5 (5.0-8.5); URINE COLOR YELLOW (YELLW/STRAW)
[2017-06-24 13:13] LABS: COMMENT (UR) CATH-CULT NOT IND; CULTURE IF INDICATED CATH CULTURE NOT IND
--- NOTE | 2017-06-24 13:38 | PD ---
HPI Chief Complaint: General Weakness Time Seen by Provider: 10:01 Travel History International Travel<30 days: No Contact w/Intl Traveler<30days: No Traveled to known affect area: No History of Present Illness HPI 86 yo M arrives with progressive weakness in the legs bilaterally x 1 week. Normally he walks with a walker. Fall x 2 this week reported. EMS came to assist him to bed after the first fall. After second fall, pt came to ED. Cough reported. No fever. Pt stopped taking lasix 2/2 polyuria. PFSH Past Medical History Hx Anticoagulant Therapy: Yes (WARFARIN ) Arthritis: Yes (HANDS) Asthma: No Heart Rhythm Problems: Yes (underlying afib) Cancer: No Cardiac Catheterization: Yes Cardiovascular Problems: Yes High Cholesterol: Yes Chest Pain: Yes Congestive Heart Failure: Yes COPD: Yes Cerebrovascular Accident: Yes (cva 2010) Coronary Artery Disease: Yes Diminished Hearing: No Endocrine: No GERD: Yes Genitourinary: Yes (FREQUENCY) Hiatal Hernia: Yes Hypertension: Yes Immune Disorder: No Kidney Stones: No Musculoskeletal: Yes Neurologic: Yes (r sided weakness, walks with cane/walker) Psychiatric: No Reproductive: No Respiratory: Yes Immunizations Current: No Migraines: No Renal Failure: No Seizures: No Sleep Apnea: Yes Ulcer: No Tetanus Vaccination: Unknown Influenza Vaccination: No Past Surgical History Abdominal Aneurysm Repair: Yes Abdominal Surgery: Yes (UMBILICAL; R INGUINAL HERNIA REPAIR) Cardiac Surgery: Yes (1979 CABG; aorta, pacemaker3-54 yrs ago) Coronary Artery Bypass Graft: Yes Ear Surgery: No Endocrine Surgery: No Eye Surgery: No Genitourinary Surgery: No Gynecologic Surgery: No Oral Surgery: No Thoracic Surgery: No Other Surgery: Yes Social History Alcohol Use: Yes (OCCASSIONAL) Tobacco Use: No (QUIT ) Substance Use: No Allergies-Medications (Allergen,Severity, Reaction): Coded Allergies: No Known Allergies (Verified , 06/24/17) Reported Meds & Prescriptions Reported Meds & Active Scripts Active Reported Crestor (Rosuvastatin Calcium) 20 Mg Tab 20 Mg PO DAILY Sigrid Aspirin EC Low Dose (Aspirin) 81 Mg Tabdr 81 Mg PO DAILY Warfarin 2 Mg Tab 2 Mg PO DAILY Review of Systems Except as stated in HPI: all other systems reviewed are Neg General / Constitutional: No: Fever Physical Exam Narrative GENERAL: 86 yo M, NAD, somewhat thin SKIN: Warm and dry. HEAD: Atraumatic. Normocephalic. EYES: Pupils equal and round. No scleral icterus. No injection or drainage. ENT: No nasal bleeding or discharge. Mucous membranes pink and moist. NECK: Trachea midline. No JVD. CARDIOVASCULAR: Regular rhythm. Normal rate. RESPIRATORY: No accessory muscle use. Clear to auscultation. Breath sounds equal bilaterally. GASTROINTESTINAL: Abdomen soft, non-tender, nondistended. Hepatic and splenic margins not palpable. MUSCULOSKELETAL: Extremities without clubbing, cyanosis, or edema. No obvious deformities. NEUROLOGICAL: Awake and alert. No obvious cranial nerve deficits. Motor grossly within normal limits. Five out of 5 muscle strength in the arms and legs. Normal speech. PSYCHIATRIC: Appropriate mood and affect; insight and judgment normal. Data Data Last Documented VS Vital Signs Date Time Temp Pulse Resp B/P (MAP) Pulse Ox O2 Delivery O2 Flow Rate FiO2 06/24/17 12:00 60 16 134/71 (92) 96 Room Air 06/24/17 09:55 99.4 vs reviewed Orders Orders Electrocardiogram (06/24/17 10:01) Ammonia (06/24/17 10:01) Complete Blood Count With Diff (06/24/17 10:01) Comprehensive Metabolic Panel (06/24/17 10:01) Creatine Kinase (Cpk) (06/24/17 10:01) Prothrombin Time / Inr (Pt) (06/24/17 10:01) Act Partial Throm Time (Ptt) (06/24/17 10:01) Troponin I (06/24/17 10:01) Urinalysis - C+S If Indicated (06/24/17 10:01) Lactic Acid Sepsis Protocol (06/24/17 10:01) Blood Culture (06/24/17 10:01) Chest, Single Ap (06/24/17 10:01) Blood Glucose (06/24/17 10:01) Ecg Monitoring (06/24/17 10:01) Iv Access Insert/Monitor (06/24/17 10:01) Oximetry (06/24/17 10:01) Sodium Chloride 0.9% Flush (Ns Flush) (06/24/17 10:15) Drug Screen, Random Urine (06/24/17 10:01) Tylenol (Acetaminophen) (06/24/17 10:01) Salicylates (Aspirin) (06/24/17 10:01) B-Type Natriuretic Peptide (06/24/17 10:01) Furosemide Inj (Lasix Inj) (06/24/17 12:15) Admit Order (Ed Use Only) (06/24/17 12:25) Comprehensive Metabolic Panel (06/25/17 06:00) Free Thyroxine (T4) (06/25/17 06:00) Hemoglobin (Hgb) A1c (06/25/17 06:00) Magnesium (Mg) (06/25/17 06:00) Phosphorus (Po4) (06/25/17 06:00) Thyroid Stimulating Hormone (06/25/17 06:00) Complete Blood Count With Diff (06/25/17 06:00) Labs Laboratory Tests Test 06/24/17 10:05 06/24/17 10:09 White Blood Count 5.5 TH/MM3 Red Blood Count 4.02 MIL/MM3 Hemoglobin 12.0 GM/DL Hematocrit 36.4 % Mean Corpuscular Volume 90.7 FL Mean Corpuscular Hemoglobin 29.9 PG Mean Corpuscular Hemoglobin Concent 33.0 % Red Cell Distribution Width 16.4 % Platelet Count 82 TH/MM3 Mean Platelet Volume 8.4 FL Neutrophils (%) (Auto) 72.9 % Lymphocytes (%) (Auto) 15.4 % Monocytes (%) (Auto) 11.1 % Eosinophils (%) (Auto) 0.1 % Basophils (%) (Auto) 0.5 % Neutrophils # (Auto) 4.0 TH/MM3 Lymphocytes # (Auto) 0.8 TH/MM3 Monocytes # (Auto) 0.6 TH/MM3 Eosinophils # (Auto) 0.0 TH/MM3 Basophils # (Auto) 0.0 TH/MM3 CBC Comment AUTO DIFF Differential Comment AUTO DIFF CONFIRMED Platelet Estimate LOW Platelet Morphology Comment NORMAL Ovalocytes 1+ Acanthocytes 1+ Keratocytes OCC Prothrombin Time 12.6 SEC Prothromb Time International Ratio 1.1 RATIO Activated Partial Thromboplast Time 25.4 SEC Blood Urea Nitrogen 15 MG/DL Creatinine 1.00 MG/DL Random Glucose 83 MG/DL Total Protein 7.0 GM/DL Albumin 3.3 GM/DL Calcium Level 9.7 MG/DL Alkaline Phosphatase 73 U/L Aspartate Amino Transf (AST/SGOT) 23 U/L Alanine Aminotransferase (ALT/SGPT) 22 U/L Total Bilirubin 1.2 MG/DL Sodium Level 136 MEQ/L Potassium Level 4.5 MEQ/L Chloride Level 109 MEQ/L Carbon Dioxide Level 18.2 MEQ/L Anion Gap 9 MEQ/L Estimat Glomerular Filtration Rate 71 ML/MIN Lactic Acid Level 1.5 mmol/L Total Creatine Kinase 78 U/L Troponin I 0.05 NG/ML B-Type Natriuretic Peptide 625 PG/ML Salicylates Level LESS THAN 1.7 MG/DL Acetaminophen Level LESS THAN 2.0 MCG/ML Ammonia 20 MCMOL/L MDM Medical Decision Making Medical Screen Exam Complete: Yes Emergency Medical Condition: Yes Medical Record Reviewed: Yes Differential Diagnosis chf exacerbation, electrolytes normal, anemia, pna Narrative Course CBC & BMP Diagram 06/24/17 10:05 Total Protein 7.0, Albumin 3.3 L, Calcium Level 9.7, Alkaline Phosphatase 73, Aspartate Amino Transf (AST/SGOT) 23, Alanine Aminotransferase (ALT/SGPT) 22, Total Bilirubin 1.2 H CXR: CHF exacerbation lasix 40mg x 1 admission d/w dr zavala Diagnosis Primary Impression: CHF exacerbation Qualified Codes: I50.9 - Heart failure, unspecified Additional Impression: Weakness of lower extremity Qualified Codes: R29.898 - Other symptoms and signs involving the musculoskeletal system Admitting Information Admitting Physician Requests: Admit Kannan Copeland MD Jun 24, 2017 13:38
[2017-06-24] MEDS: APIXABAN 5 MG TABLET PO SCH ×2 (13:41→21:04)
--- NOTE | 2017-06-24 13:42 | HHI.HP ---
[facility] Primary Care Physician Tad Cox MD Admission Diagnosis CHF Exacerbation; Generalized Weakness; LE Weakness Diagnoses: (1) Generalized weakness Diagnosis: Principal (2) Atrial fibrillation Diagnosis: Principal (3) Acute on chronic systolic congestive heart failure Diagnosis: Principal (4) History of stroke Diagnosis: Secondary (5) Cardiomyopathy Diagnosis: Secondary (6) Chronic obstructive pulmonary disease Diagnosis: Secondary (7) Hyperlipidemia Diagnosis: Secondary (8) Gastroesophageal reflux Diagnosis: Secondary (9) Coronary artery disease Diagnosis: Secondary (10) Dyspnea Diagnosis: Secondary Chief Complaint: GENERAL WEAKNESS Travel History International Travel<30 Days: No Contact w/Intl Traveler <30 Da: No Traveled to Known Affected Are: No History of Present Illness Mr. Nguyen is a 86-year-old male with past medical history of hypertension, heart failure, and stroke who presented to the ED with weakness in his legs. He states that this started about a week ago when he began to be unable to walk. At baseline he walks freely with a walker. EMS was called to his house twice this week. First time was yesterday when they move him to his bed. The second time was today when they brought him to the ED for because of him being unable to move. He has also developed a cough that started a few days ago productive of white sputum. Of note, he stopped taking his Lasix a month ago because of urinary frequency. He is still having urinary frequency off of the medication. He is also feeling a little short of breath today. No fevers or chills, no night sweats, he has a good appetite. States that he has never felt like this before. Review of Systems Constitutional: COMPLAINS OF: Fatigue, DENIES: Diaphoretic episodes, Fever, Weight gain, Weight loss, Chills, Dizziness, Change in appetite Endocrine: DENIES: Heat/cold intolerance, Polydipsia, Polyuria, Polyphagia Eyes: DENIES: Blurred vision, Diplopia, Eye inflammation, Eye pain, Vision loss , Photosensitivity Ears, nose, mouth, throat: DENIES: Tinnitus, Hearing loss, Vertigo, Nasal discharge, Oral lesions, Throat pain, Hoarseness, Ear Pain Respiratory: COMPLAINS OF: Cough, Sputum production, Shortness of breath, DENIES: Apneas, Snoring, Wheezing, Hemoptysis Cardiovascular: COMPLAINS OF: Dyspnea on Exertion, PND, DENIES: Chest pain, Palpitations, Syncope, Lower Extremity Edema, Orthopnea, Claudication Gastrointestinal: DENIES: Abdominal pain, Black stools, Bloody stools, Constipation, Diarrhea, Nausea, Vomiting Genitourinary: DENIES: Sexual dysfunction Musculoskeletal: COMPLAINS OF: Joint pain, DENIES: Muscle aches, Stiffness, Joint Swelling, Back pain, Neck pain Integumentary: DENIES: Abnormal pigmentation, Nail changes, Pruritus Hematologic/lymphatic: DENIES: Bruising, Lymphadenopathy Immunologic/allergic: DENIES: Eczema, Urticaria Neurologic: COMPLAINS OF: Abnormal gait, Poor Balance, DENIES: Headache, Localized weakness, Paresthesias, Seizures, Speech Problems, Tremor Psychiatric: DENIES: Anxiety, Confusion, Mood changes, Depression, Hallucinations, Agitation, Suicidal Ideation, Homicidal Ideation Past Family Social History Past Medical History Chronic anticoagulation had been on warfarin which he is not taking since his INR is subtherapeutic vision to Eliquis Osteoarthritis bilateral hands Atrial fibrillation Hyperlipidemia Chest pain Congestive heart failure COPD History of CVA in 2010 Coronary artery disease GERD Urinary frequency Hiatal hernia Hypertension Generalized weakness worse with right-sided weakness walks with walker Possible sleep apnea Past Surgical History Abdominal aneurysm repair Umbilical hernia repair Right inguinal hernia repair History of coronary artery bypass graft History of pacemaker Reported Medications Reported Meds & Active Scripts Active Reported Crestor (Rosuvastatin Calcium) 20 Mg Tab 20 Mg PO DAILY Sigrid Aspirin EC Low Dose (Aspirin) 81 Mg Tabdr 81 Mg PO DAILY Warfarin 2 Mg Tab 2 Mg PO DAILY Allergies: Coded Allergies: No Known Allergies (Verified , 06/24/17) Active Ordered Medications Current Medications IV Flush (NS Flush) 2 ml UNSCH PRN IV FLUSH FLUSH AFTER USING IV ACCESS; Start 06/24/17 at 10:15; Stop 06/24/17 at 12:37; Status DC Furosemide (Lasix Inj) 40 mg ONCE ONCE IV PUSH ; Start 06/24/17 at 12:15; Stop 06/24/17 at 12:39; Status DC Apixaban (Eliquis) 5 mg BID PO ; Start 06/24/17 at 12:30 Atorvastatin Calcium (Lipitor) 4 mg DAILY PO ; Start 06/24/17 at 12:30 Sodium Chloride (NS Flush) 2 ml UNSCH PRN IV FLUSH FLUSH AFTER USING IV ACCESS ; Start 06/24/17 at 12:30 Sodium Chloride (NS Flush) 2 ml BID IV FLUSH ; Start 06/24/17 at 21:00 Acetaminophen (Tylenol) 650 mg Q4H PRN PO TEMP > 100.4; Start 06/24/17 at 12:30 Ondansetron HCl (Zofran Inj) 4 mg Q6H PRN IVP NAUSEA OR VOMITING; Start at 12:30 Prochlorperazine (Compazine Supp) 25 mg Q12H PRN RECTAL NAUSEA OR VOMITING; Start 06/24/17 at 12:30 Acetaminophen (Tylenol) 650 mg Q6H PRN PO PAIN SCALE 1 TO 2; Start 06/24/17 at 12:30 Oxycodone/ Acetaminophen (Percocet 5-325 Mg) 1 tab Q6H PRN PO PAIN SCALE 3 TO 5; Start 06/24/17 at 12:30 Oxycodone/ Acetaminophen (Percocet 10-325 Mg) 1 tab Q6H PRN PO PAIN SCALE 6 TO 10; Start 06/24/17 at 12:30 Morphine Sulfate (Morphine Inj) 2 mg Q3H PRN IV PUSH Pain 3-5; if unable to take PO; Start 06/24/17 at 12:30 Morphine Sulfate (Morphine Inj) 4 mg Q3H PRN IV PUSH Pain 6-10;if unable to take PO; Start 06/24/17 at 12:30 Naloxone HCl (Narcan Inj) 0.4 mg UNSCH PRN IV PUSH SEE LABEL COMMENTS; Start at 12:30 Senna/Docusate Sodium (Bibiana-Colace) 1 tab BID PO ; Start 06/24/17 at 21:00 Magnesium Hydroxide (Milk Of Magnesia Liq) 30 ml Q12H PRN PO MILD - MODERATE CONSTIPATION; Start 06/24/17 at 12:30 Sennosides (Senokot) 17.2 mg Q12H PRN PO MODERATE - SEVERE CONSTIPATION; Start 06/24/17 at 12:30 Bisacodyl (Dulcolax Supp) 10 mg DAILY PRN RECTAL SEVERE CONSITIPATION; Start at 12:30 Lactulose (Lactulose Liq) 30 ml DAILY PRN PO SEVERE CONSITIPATION; Start at 12:30 Sodium Chloride (NS Flush) 2 ml UNSCH PRN IV FLUSH FLUSH AFTER USING IV ACCESS ; Start 06/24/17 at 12:30; Stop 06/24/17 at 12:37; Status DC Sodium Chloride (NS Flush) 2 ml BID IV FLUSH ; Start 06/24/17 at 21:00; Stop at 21:00; Status DC Furosemide (Lasix Inj) 40 mg BID@, IVP ; Start 06/24/17 at 18:00 Potassium Chloride (KCl) 20 meq BID PO ; Start 06/24/17 at 21:00 Family History Heart disease Tobacco abuse Hypertension Social History History of tobacco abuse Occasional alcohol use denies any illicits Physical Exam Vital Signs Vital Signs Date Time Temp Pulse Resp B/P (MAP) Pulse Ox O2 Delivery O2 Flow Rate FiO2 06/24/17 09:56 98 Room Air 06/24/17 09:55 99.4 60 24 126/70 (88) 98 Physical Exam GENERAL: This is a frail-appearing cachectic-looking patient, looks very weak patient, in no apparent distress. SKIN: No rashes, ecchymoses or lesions. Cool and dry. HEAD: Atraumatic. Normocephalic. No temporal or scalp tenderness. EYES: Pupils equal round and reactive. Extraocular motions intact. No scleral icterus. No injection or drainage. ENT: Nose without bleeding, purulent drainage or septal hematoma. Throat without erythema, tonsillar hypertrophy or exudate. Uvula midline. Airway patent. Mucous membranes appear dry NECK: Trachea midline. No JVD or lymphadenopathy. Supple, nontender, no meningeal signs. CARDIOVASCULAR: IRRegular rate and rhythm without murmurs, gallops, or rubs. S1 -S2 no S3 or S4 no heave or thrill or rub left-sided pacemaker obvious in place RESPIRATORY: . Breath sounds equal bilaterally. No wheezes, rales, or rhonchi. Decreased breath sounds bilaterally coarse GASTROINTESTINAL: Abdomen soft, non-tender, nondistended. No hepato-splenomegaly , or palpable masses. No guarding. MUSCULOSKELETAL: Extremities without clubbing, cyanosis, or edema. No joint tenderness, effusion, or edema noted. No calf tenderness. Negative Homans sign bilaterally. May be trace to +1 edema bilateral lower extremities NEUROLOGICAL: Awake and alert. Cranial nerves II through XII intact. Motor and sensory grossly within normal limits. 3 out of 5 muscle strength in all muscle groups. Normal speech. Insight and judgment is questionable Mood and behavior is somewhat appropriate Laboratory Laboratory Tests Test 06/24/17 10:05 06/24/17 10:09 06/24/17 12:55 White Blood Count 5.5 Red Blood Count 4.02 Hemoglobin 12.0 Hematocrit 36.4 Mean Corpuscular Volume 90.7 Mean Corpuscular Hemoglobin 29.9 Mean Corpuscular Hemoglobin Concent 33.0 Red Cell Distribution Width 16.4 Platelet Count 82 Mean Platelet Volume 8.4 Neutrophils (%) (Auto) 72.9 Lymphocytes (%) (Auto) 15.4 Monocytes (%) (Auto) 11.1 Eosinophils (%) (Auto) 0.1 Basophils (%) (Auto) 0.5 Neutrophils # (Auto) 4.0 Lymphocytes # (Auto) 0.8 Monocytes # (Auto) 0.6 Eosinophils # (Auto) 0.0 Basophils # (Auto) 0.0 CBC Comment AUTO DIFF Differential Comment AUTO DIFF CONFIRMED Platelet Estimate LOW Platelet Morphology Comment NORMAL Ovalocytes 1+ Acanthocytes 1+ Keratocytes OCC Prothrombin Time 12.6 Prothromb Time International Ratio 1.1 Activated Partial Thromboplast Time 25.4 Blood Urea Nitrogen 15 Creatinine 1.00 Random Glucose 83 Total Protein 7.0 Albumin 3.3 Calcium Level 9.7 Alkaline Phosphatase 73 Aspartate Amino Transf (AST/SGOT) 23 Alanine Aminotransferase (ALT/SGPT) 22 Total Bilirubin 1.2 Sodium Level 136 Potassium Level 4.5 Chloride Level 109 Carbon Dioxide Level 18.2 Anion Gap 9 Estimat Glomerular Filtration Rate 71 Lactic Acid Level 1.5 Total Creatine Kinase 78 Troponin I 0.05 B-Type Natriuretic Peptide 625 Salicylates Level LESS THAN 1.7 Acetaminophen Level LESS THAN 2.0 Ammonia 20 Urine Color YELLOW Urine Turbidity CLEAR Urine pH 6.5 Urine Specific [place] 1.018 Urine Protein 30 Urine Glucose (UA) NEG Urine Ketones 10 Urine Occult Blood TRACE Urine Nitrite NEG Urine Bilirubin NEG Urine Urobilinogen 2.0 Urine Leukocyte Esterase NEG Urine RBC 5 Urine WBC LESS THAN 1 Urine Mucus FEW Microscopic Urinalysis Comment CATH-CULT NOT IND Date/Time Source Procedure Growth Status 06/24/17 10:15 Blood Peripheral Aerobic Blood Culture Pending Received 06/24/17 10:15 Blood Peripheral Anaerobic Blood Culture Pending Received Result Diagram: 06/24/17 1005 06/24/17 1005 Imaging Last Impressions Chest X-Ray 06/24/17 1001 Signed Impressions: Service Date/Time: Saturday, June 24, 2017 10:23 - CONCLUSION: Stable chest appearance. MD Brenda Billy VTE Risk Assessment Caprini VTE Risk Assessment: Mod/High Risk (score >= 2) Caprini Risk Assessment Model Point Value = 1 Point Value = 2 Point Value = 3 Point Value = 5 Age 41-60 Minor surgery BMI > 25 kg/m2 Swollen legs Varicose veins or History of unexplained or recurrent spontaneous Oral contraceptives or hormone replacement Sepsis (< 1 month) Serious lung disease, including pneumonia (< 1 month) Abnormal pulmonary function Acute myocardial infarction Congestive heart failure (< 1 month) History of inflammatory bowel disease Medical patient at bed rest Age 61-74 Arthroscopic surgery Major open surgery (> 45 min) Laparoscopic surgery (> 45 min) Malignancy Confined to bed (> 72 hours) Immobilizing plaster cast Central venous access Age >= 75 History of VTE Family history of VTE Factor V Leiden Prothrombin [id number] Lupus anticoagulant Anticardiolipin antibodies Elevated serum homocysteine Heparin-induced thrombocytopenia Other congenital or acquired thrombophilia Stroke (< 1 month) Elective arthroplasty Hip, pelvis, or leg fracture Acute spinal cord injury (< 1 month) Prophylaxis Regimen Total Risk Factor Score Risk Level Prophylaxis Regimen 0-1 Low Early ambulation 2 Moderate Order ONE of the following: *Sequential Compression Device (SCD) *Heparin 5000 units SQ BID 3-4 Higher Order ONE of the following medications: *Heparin 5000 units SQ TID *Enoxaparin/Lovenox 40 mg SQ daily (WT < 150 kg, CrCl > 30 mL/min) *Enoxaparin/Lovenox 30 mg SQ daily (WT < 150 kg, CrCl > 10-29 mL/min) *Enoxaparin/Lovenox 30 mg SQ BID (WT < 150 kg, CrCl > 30 mL/min) AND/OR *Sequential Compression Device (SCD) 5 or more Highest Order ONE of the following medications: *Heparin 5000 units SQ TID (Preferred with Epidurals) *Enoxaparin/Lovenox 40 mg SQ daily (WT < 150 kg, CrCl > 30 mL/min) *Enoxaparin/Lovenox 30 mg SQ daily (WT < 150 kg, CrCl > 10-29 mL/min) *Enoxaparin/Lovenox 30 mg SQ BID (WT < 150 kg, CrCl > 30 mL/min) AND *Sequential Compression Device (SCD) Assessment and Plan Problem List: (1) Acute on chronic systolic congestive heart failure ICD Code: I50.23 - Acute on chronic systolic (congestive) heart failure Status: Acute (2) History of stroke ICD Code: Z86.73 - Personal history of transient ischemic attack (TIA), and cerebral infarction without residual deficits Status: Acute (3) Cardiomyopathy ICD Code: I42.9 - Cardiomyopathy, unspecified Status: Acute (4) Chronic obstructive pulmonary disease ICD Code: J44.9 - Chronic obstructive pulmonary disease, unspecified Status: Acute (5) Hyperlipidemia ICD Code: E78.5 - Hyperlipidemia, unspecified Status: Acute (6) Gastroesophageal reflux ICD Code: K21.9 - Gastro-esophageal reflux disease without esophagitis Status: Acute (7) Dyspnea ICD Code: R06.00 - Dyspnea, unspecified Status: Acute (8) Generalized weakness ICD Code: R53.1 - Weakness (9) Atrial fibrillation ICD Code: I48.91 - Unspecified atrial fibrillation Status: Acute (10) Coronary artery disease ICD Code: I25.10 - Atherosclerotic heart disease of [place] coronary artery without angina pectoris Status: Acute Assessment and Plan Generalized weakness was severe deconditioning with physical therapy and occupational therapy to eval and treat will more likely need SNF at discharge Heart failure exacerbation BNP is 625 but his EF is noted to be about 15% so may not be totally overloaded may have just a cardiomyopathy with an elevated chronic BNP Doubt pneumonia Do not see urinary tract infection Chronic atrial fibrillation switch to Eliquis since his INR is so subtherapeutic that it is not benefiting him Noncompliance due to severe deconditioning History of CVA with chronic weakness Hyperlipidemia probably by history on Crestor History of coronary artery disease continue on Lasix will get an echo History of COPD/asthma breathing treatments when necessary Severe deconditioning PT and OT to eval and treat Code Status Full code Discussed Condition With Discussed with ER and patient Physician Certification 2 Midnight Certification Type: Admission for Inpatient Services Order for Inpatient Services The services are ordered in accordance with Medicare regulations or non- Medicare payer requirements, as applicable. In the case of services not specified as inpatient-only, they are appropriately provided as inpatient services in accordance with the 2-midnight benchmark. Estimated LOS (days): 3 3 days is the estimated time the patient will need to remain in the hospital, assuming treatment plan goals are met and no additional complications. Post-Hospital Plan: Not yet determined Notes: May need SNF versus home health Nakul Christian DO Jun 24, 2017 13:42
[2017-06-24] MEDS: ATORVASTATIN 40 MG TAB PO SCH (14:31)
[2017-06-24] MEDS ORDERED: FUROSEMIDE 40 MG/4 ML VIAL IVP SCH (18:00)
[2017-06-24 20:34] LABS: MAGNESIUM 2.3 MG/DL (1.5-2.5)
[2017-06-24] MEDS ORDERED: SODIUM CHLORIDE 0.9% FLUSH 10 ML FLUSH IV FLUSH SCH (21:00)
[2017-06-24] MEDS: POTASSIUM CHLORIDE 20 MEQ CONTROLLED RELEASE TAB PO SCH (21:04)
[2017-06-24] MEDS: DOCUSATE SODIUM 50 MG/SENNA 8.6 MG TAB PO SCH (21:04)
[2017-06-24] MEDS: SODIUM CHLORIDE 0.9% FLUSH 10 ML FLUSH IV FLUSH SCH (21:04)
[2017-06-25] VITALS (9 sets, daily range): BP systolic 80–101; BP diastolic 51–60; PULSE 54–80; RESP 14–18; TEMP 96.2–98.1; O2SAT 91–97
[2017-06-25 07:26] LABS: AUTOMATED NEUTROPHIL # 4.1 TH/MM3 (1.8-7.7); BASOPHIL % 0.5 % (0.0-2.0); HEMATOCRIT 40.3 % (39.0-51.0); HEMO FLAGS DIFF FINAL; LYMPH % 19.8 % (9.0-44.0); LYMPHOCYTE # 1.2 TH/MM3 (1.0-4.8); MEAN CELL VOLUME 90.2 FL (80.0-100.0); MEAN CORPUSCULAR HEMOGLOBIN 30.5 PG (27.0-34.0); MEAN CORPUSCULAR HGB CONC 33.8 % (32.0-36.0); NEUT % 66.7 % (16.0-70.0); PLATELET COUNT 106 TH/MM3 (150-450); RED BLOOD COUNT 4.47 MIL/MM3 (4.50-5.90); RED CELL DISTRIBUTION WIDTH 16.2 % (11.6-17.2); WHITE BLOOD COUNT 6.1 TH/MM3 (4.0-11.0)
[2017-06-25 07:39] LABS: ANION GAP 9 MEQ/L (5-15); AST (GOT) 19 U/L (15-37); BICARBONATE 23.6 MEQ/L (21.0-32.0); BLOOD UREA NITROGEN 24 MG/DL (7-18); CHLORIDE 103 MEQ/L (98-107); GLOMERULAR FILTRATION RATE 54 ML/MIN (>89); MAGNESIUM 2.6 MG/DL (1.5-2.5); POTASSIUM 3.7 MEQ/L (3.5-5.1); SODIUM (NA) 136 MEQ/L (136-145)
[2017-06-25 07:48] LABS: ALKALINE PHOSPHATASE 67 U/L (45-117); ALT (GPT) 13 U/L (12-78); FREE T4 1.17 NG/DL (0.76-1.46); TOTAL BILIRUBIN ADULT 1.1 MG/DL (0.2-1.0)
[2017-06-25] MEDS: DOCUSATE SODIUM 50 MG/SENNA 8.6 MG TAB PO SCH ×2 (08:20→20:51)
[2017-06-25] MEDS: POTASSIUM CHLORIDE 20 MEQ CONTROLLED RELEASE TAB PO SCH ×2 (08:20→20:51)
[2017-06-25] MEDS: APIXABAN 5 MG TABLET PO SCH (08:20)
[2017-06-25] MEDS: ATORVASTATIN 40 MG TAB PO SCH (08:20)
[2017-06-25] MEDS: SODIUM CHLORIDE 0.9% FLUSH 10 ML FLUSH IV FLUSH SCH ×2 (08:21→20:51)
[2017-06-25] MEDS ORDERED: ASPIRIN EC 81 MG TABEC PO SCH (09:00)
[2017-06-25 09:12] LABS: HEMOGLOBIN A1a 1.1 %; HEMOGLOBIN A1b 0.8 %; HEMOGLOBIN Ao 85.3 %; HEMOGLOBIN F 1.2 %; HEMOGLOBIN LA1C 2.2 %; HEMOGLOBIN P3 5.1 %
--- NOTE | 2017-06-25 09:31 | HHI.PR ---
Subjective Remarks Follow-up heart failure and deconditioning. Denies shortness of breath. Lasix not given this morning secondary to low BP. Denies dizziness, chest pain, palpitations and focal weakness but seen with RN Objective Vitals Vital Signs Date Time Temp Pulse Resp B/P (MAP) Pulse Ox O2 Delivery O2 Flow Rate FiO2 06/25/17 04:35 96.4 54 17 97/54 (68) 91 06/25/17 00:30 96.2 61 18 96/55 (69) 97 06/25/17 00:00 65 06/24/17 20:35 97.1 61 17 123/58 (79) 94 06/24/17 20:00 66 06/24/17 15:00 97.4 60 22 108/57 (74) 99 06/24/17 14:45 62 24 135/69 (91) 96 06/24/17 13:00 61 24 135/69 (91) 98 Room Air 06/24/17 12:00 60 16 134/71 (92) 96 Room Air 06/24/17 11:00 62 15 131/69 (89) 96 Room Air 06/24/17 10:30 60 15 130/71 (90) 96 Room Air 06/24/17 09:56 98 Room Air 06/24/17 09:55 99.4 60 24 126/70 (88) 98 I/O 06/24/17 06/24/17 06/24/17 06/25/17 06/25/17 06/25/17 07:00 15:00 23:00 07:00 15:00 23:00 Intake Total 240 ml Output Total 600 ml Balance -600 ml 240 ml Intake Oral 240 ml Output Urine Total 600 ml # Voids 1 3 4 Result Diagram: 06/25/17 0703 06/25/17 0703 Imaging Last Impressions Chest X-Ray 06/24/17 1001 Signed Impressions: Service Date/Time: Saturday, June 24, 2017 10:23 - CONCLUSION: Stable chest appearance. Suhail Tang MD Objective Remarks This is a frail-appearing cachectic-looking patient, in no apparent distress. No rashes, ecchymoses or lesions. Cool and dry. Pupils equal round and reactive. Extraocular motions intact. No scleral icterus. No injection or drainage. No JVD or lymphadenopathy. Supple, nontender, no meningeal signs. Irregular rate and rhythm without murmurs, gallops, or rubs. Breath sounds equal bilaterally. No wheezes, rales, or rhonchi. Decreased breath sounds Abdomen soft, non-tender, nondistended. No guarding. Extremities without clubbing, cyanosis, or edema. No joint tenderness, effusion , or edema noted. No calf tenderness. Negative Homans sign bilaterally. Awake and alert. Cranial nerves II through XII intact. Generalized weakness A/P Problem List: (1) Acute on chronic systolic congestive heart failure ICD Code: I50.23 - Acute on chronic systolic (congestive) heart failure Status: Acute (2) History of stroke ICD Code: Z86.73 - Personal history of transient ischemic attack (TIA), and cerebral infarction without residual deficits Status: Acute (3) Cardiomyopathy ICD Code: I42.9 - Cardiomyopathy, unspecified Status: Acute (4) Chronic obstructive pulmonary disease ICD Code: J44.9 - Chronic obstructive pulmonary disease, unspecified Status: Acute (5) Hyperlipidemia ICD Code: E78.5 - Hyperlipidemia, unspecified Status: Acute (6) Gastroesophageal reflux ICD Code: K21.9 - Gastro-esophageal reflux disease without esophagitis Status: Acute (7) Dyspnea ICD Code: R06.00 - Dyspnea, unspecified Status: Acute (8) Generalized weakness ICD Code: R53.1 - Weakness (9) Atrial fibrillation ICD Code: I48.91 - Unspecified atrial fibrillation Status: Acute (10) Coronary artery disease ICD Code: I25.10 - Atherosclerotic heart disease of [place] coronary artery without angina pectoris Status: Acute Assessment and Plan 86-year-old male with history of chronic anticoagulation on warfarin secondary to A. fib , chronic thrombocytopenia, Hyperlipidemia, Congestive heart failure, COPD, CVA in 2011, Coronary artery disease, GERD, Urinary frequency, Hiatal hernia, Hypertension and possible sleep apnea. He presents with generalized weakness which is secondary to heart failure exacerbation and severe deconditioning Acute on chronic systolic Hernández failure exacerbation. Continue diuresis with Lasix monitor renal function and electrolytes. CHF education, I/O and monitor weight. Hypertension now with hypotension secondary to diuresis. Decrease Lasix to 20 mg IV daily with hold parameters. Noncompliance. Counseled Hyperglycemia. Obtain A1c Severe deconditioning PT and OT to eval and treat A. fib with CVR. Because of noncompliance, Coumadin switched to Eliquis. We' ll also continue aspirin with history of CVA and CAD patient agrees and is aware risk of bleeding DVT prophylaxis with Eliquis Discharge Planning SNF in 1-2 days Caleb Ren MD Jun 25, 2017 09:31
[2017-06-25] MEDS ORDERED: APIX5TAB PO (09:42)
[2017-06-25] MEDS ORDERED: FURO20TA PO (09:42)
--- NOTE | 2017-06-25 09:42 | HHI.DCPOC ---
Discharge Care Plan Diagnosis: (1) CHF exacerbation Your Health Problems Are: Difficulty with ADL Exercise Tolerance Goals to Promote Your Health * To prevent worsening of your condition and complications * To maintain your health at the optimal level Directions to Meet Your Goals Take your medications as prescribed Follow your dietary instruction Follow activity as directed Keep your appointments as scheduled Take your immunizations and boosters as scheduled If your symptoms worsen call your PCP, if no PCP go to Urgent Care Center or Emergency Room Smoking is Dangerous to Your Health. Avoid second hand smoke Call the 24-hour hour crisis hotline for domestic abuse at Caleb Ren MD Jun 25, 2017 09:42
[2017-06-25] MEDS: FUROSEMIDE 40 MG/4 ML VIAL IVP SCH (11:00)
--- NOTE | 2017-06-25 17:28 | ECHRPT ---
Indication: CARDIOMYOPATHY CONCLUSIONS Severely dilated left ventricle. Wall thickness is normal. The left ventricular systolic function is severely reduced with an estimated ejection fraction less than 20%. Doppler parameters are consistent with a restrictive left ventricular filling pattern indicative of decreased left ventricular diastolic compliance and increase left atrial pressure (grade 3 diastolic dysfuncti on). There is diffuse global hypokinesis with distinct regional wall motion abnormalities. The left atrial size is moderately dilated. The right atrial size is moderately dilated. Mild thickening of the mitral valve leaflets. Moderate mitral valve regurgitation. Aortic valve sclerosis is present. Mild aortic valve regurgitation. No aortic valve stenosis. There is trace tricuspid valve regurgitation. Normal estimated pulmonary pressures. BP: 126 / 70 HR: Rhythm: Sinus MEASUREMENTS (Male / Female) Normal Values Technical Quality:Poor 2D ECHO LV Diastolic Diameter PLAX 7.0 cm 4.2 - 5.9 / 3.9 - 5.3 cm LV Systolic Diameter PLAX 6.7 cm IVS Diastolic Thickness 0.8 cm 0.6 - 1.0 / 0.6 - 0.9 cm LVPW Diastolic Thickness 0.8 cm 0.6 - 1.0 / 0.6 - 0.9 cm LV Relative Wall Thickness 0.2 LVOT Diameter 2.9 cm Aortic Root Diameter 3.8 cm LA Systolic Diameter LX 4.5 cm 3.0 - 4.0 / 2.7 - 3.8 cm M-MODE AV Cusp Separation MM 1.7 cm DOPPLER AV Peak Velocity 113.0 cm/s AV Peak Gradient 5.1 mmHg AV Mean Gradient 3.0 mmHg AV Velocity Time Integral 16.1 cm LVOT Peak Velocity 39.1 cm/s LVOT Peak Gradient 0.6 mmHg LVOT Velocity Time Integral 5.3 cm AV Area Cont Eq vti 2.2 cm AV Area Cont Eq pk 2.3 cm Mitral E Point Velocity 69.6 cm/s LV E' Lateral Velocity 4.1 cm/s Mitral E to LV E' Lateral Ratio 16.9 LV E' Septal Velocity 5.1 cm/s Mitral E to LV E' Septal Ratio 13.5 TR Peak Velocity 220.0 cm/s TR Peak Gradient 19.4 mmHg Right Atrial Pressure 10.0 mmHg Pulmonary Artery Systolic Pressu 29.4 mmHg Right Ventricular Systolic Press 29.4 mmHg FINDINGS LEFT VENTRICLE Severely dilated left ventricle. Wall thickness is normal. The left ventricular systolic function is severely reduced with an estimated ejection fraction less than 20%. Doppler parameters are consistent with a restrictive left ventricular filling pattern indicative of decreased left ventricular diastolic compliance and increase left atrial pressure (grade 3 diastolic dysfuncti on). There is diffuse global hypokinesis with distinct regional wall motion abnormalities. RIGHT VENTRICLE Normal right ventricular size and systolic function. LEFT ATRIUM The left atrial size is moderately dilated. RIGHT ATRIUM The right atrial size is moderately dilated. MITRAL VALVE Mild thickening of the mitral valve leaflets. Moderate mitral valve regurgitation. AORTIC VALVE Aortic valve sclerosis is present. Mild aortic valve regurgitation. No aortic valve stenosis. TRICUSPID VALVE There is trace tricuspid valve regurgitation. Normal estimated pulmonary pressures. Arnoldo Chang MD, FACC (Electronically Signed) Final Date:25 June 2017 17:27
--- NOTE | 2017-06-25 18:29 | RADRPT ---
EXAM DATE/TIME: 06/25/2017 16:42 [facility] COMPARISON: No previous studies available for comparison. INDICATIONS : Hematuria. MEDICAL HISTORY : Myocardial infarction. Congestive heart failure. Aneurysm, abdominal. Right sided weakness. CVA. Hype rcholesterolemia. Chest pain. Afib. HTN. COPD. Sleep apnea. Dyspnea. Arthritis. Gait problems. Antic oagulant therapy, Warfarin. SURGICAL HISTORY : CABG. Pacemaker. Abdominal aortic aneurysm repair. Bilateral cataract removal. Cardiac cath. Umbilica l and right inguinal hernia repairs. ENCOUNTER: Initial ACUITY: 3 days PAIN SCORE: 6/10 LOCATION: Bilateral flank MEASUREMENTS: RIGHT KIDNEY: 8.7 x 4.7 x 4.8 cm LEFT KIDNEY: 9.9 x 3.8 x 4.5 cm FINDINGS: No hydronephrosis or parenchymal echogenicity changes are seen. There is a 12 mm nonobstructing stone of the right mid zone. No left renal stone seen. No concerning masses. Urinary bladder wall is markedly thickened. There is some debris within the lumen. Prostate is enlarg ed, 4.2 x 4.8 x 4.1 cm. Scattered prostate calcifications are noted. Multiple stones are incidentally seen in the gallbladder. CONCLUSION: 1. No hydronephrosis or other acute renal abnormality demonstrated. 2. Nonobstructing right renal stone. 3. Heterogeneous enlargement of the prostate. 4. Thickwalled urinary bladder and containing debris, nonspecific. Suhail Reyes MD on June 25, 2017 at 18:25 Board Certified Radiologist. This report was verified electronically.
[2017-06-25 20:22] LABS: AUTOMATED NEUTROPHIL # 6.6 TH/MM3 (1.8-7.7); BASOPHIL % 0.3 % (0.0-2.0); EOSINOPHIL % 0.1 % (0.0-4.0); HEMATOCRIT 38.7 % (39.0-51.0); HEMO FLAGS DIFF FINAL; LYMPH % 12.9 % (9.0-44.0); LYMPHOCYTE # 1.1 TH/MM3 (1.0-4.8); MEAN CELL VOLUME 89.3 FL (80.0-100.0); MEAN CORPUSCULAR HEMOGLOBIN 30.8 PG (27.0-34.0); MEAN CORPUSCULAR HGB CONC 34.5 % (32.0-36.0); MONO % 8.9 % (0.0-8.0); NEUT % 77.8 % (16.0-70.0); PLATELET COUNT 132 TH/MM3 (150-450); RED BLOOD COUNT 4.34 MIL/MM3 (4.50-5.90); RED CELL DISTRIBUTION WIDTH 15.9 % (11.6-17.2); WHITE BLOOD COUNT 8.5 TH/MM3 (4.0-11.0)
--- NOTE | 2017-06-25 20:38 | MB ---
cc: MELISSA OLIVARES DATE OF CONSULTATION: 06/25/2017 REASON FOR CONSULTATION: HISTORY OF PRESENT ILLNESS: Mr. Nguyen is an 86-year-old male presented with generalized weakness and unable to ambulate. The patient was noted to develop gross hematuria yesterday after a traumatic Gaffney catheter was unable to be placed by the nursing staff. He states that he denies any prior history of hematuria or urinary tract infections. He used to smoke over 50 years ago but has not smoked since then. He denies any urinary frequency at present and does note a history of nocturia from 0 to two times. PAST MEDICAL HISTORY: Notable for: 1. Coronary artery disease. 2. History of CVA. 3. GERD. 4. Hypertension. 5. Hiatal hernia. 6. COPD. 7. CHF. 8. Hyperlipidemia 9. A-fib 10. Osteoarthritis. PAST SURGICAL HISTORY: 1. CABG. 2. Pacemaker insertion. 3. Right inguinal hernia. 4. Umbilical hernia repair. 5. Abdominal aneurysm repair. MEDICATIONS: Please refer to the chart. ALLERGIES: NO KNOWN DRUG ALLERGIES. FAMILY HISTORY: Notable for heart disease, hypertension. SOCIAL HISTORY: Notable for tobacco abuse but quit 50 years ago. Occasional alcohol use. Denies any illicit drug use. REVIEW OF SYSTEMS: Denies chest pain, abdominal pain, denies generalized weakness. Denies diarrhea or constipation. Notes gait disturbance due to weakness. Denies skin lesion. The remaining of review of systems were reviewed and were negative. PHYSICAL EXAMINATION: Vitals: Temperature is 96.5, heart rate 77, respiratory rate 16, 82/54 blood pressure. GENERAL: He is a thin 86 year-old male in no acute distress. HEENT: Normocephalic, atraumatic. Pupils equal round react to light. NECK: Neck is supple. HEART: Regular rate and rhythm. LUNGS: Clear, non-tender, non-distended. : Normal phallus with condom catheter in place. Testes are descended. EXTREMITIES: No clubbing, cyanosis or edema. LABORATORY DATA: White count 6.1, hemoglobin 13.6, hematocrit 40.3, platelet count of 106. Chemistry: Sodium 136, potassium 3.7, chloride 103, CO2 23.6, BUN 24, creatinine 1.2. Glucose 107. PT is 12.6, INR is 1.1, PTT 25.4. Urinalysis on admission showed trace blood with 5 red cells and less than 1 white cell. ASSESSMENT: The patient is an 86-year-old male with gross hematuria after traumatic Gaffney attempt. Would continue to hold Eliquis until the urine clears. The urine was clear in time as this was due to trauma. Monitor voiding at present. No intervention required at this point in time. Thank you for the consult and allowing me to participate in the care of this patient. Jordy HERNANDEZ/CONNIE /5:45 PM /8:28 PM
[2017-06-25 20:41] LABS: BICARBONATE 24.5 MEQ/L (21.0-32.0); POTASSIUM 3.7 MEQ/L (3.5-5.1)
[2017-06-26] VITALS (10 sets, daily range): BP systolic 92–132; BP diastolic 65–81; PULSE 61–92; RESP 16–18; TEMP 97.3–98.3; O2SAT 93–98
[2017-06-26 08:05] LABS: BICARBONATE 24.1 MEQ/L (21.0-32.0); MAGNESIUM 2.6 MG/DL (1.5-2.5); POTASSIUM 4.1 MEQ/L (3.5-5.1)
[2017-06-26] MEDS: ATORVASTATIN 40 MG TAB PO SCH (08:21)
[2017-06-26] MEDS: POTASSIUM CHLORIDE 20 MEQ CONTROLLED RELEASE TAB PO SCH ×2 (08:22→21:02)
[2017-06-26] MEDS: DOCUSATE SODIUM 50 MG/SENNA 8.6 MG TAB PO SCH ×2 (08:22→21:02)
[2017-06-26] MEDS: SODIUM CHLORIDE 0.9% FLUSH 10 ML FLUSH IV FLUSH SCH ×2 (08:22→21:02)
[2017-06-26] MEDS: FUROSEMIDE 40 MG/4 ML VIAL IVP SCH (08:33)
--- NOTE | 2017-06-26 11:22 | HHI.PR ---
Subjective Remarks Follow-up arrhythmia, hematuria and low BP. Patient has no complaints today. Denies UTI symptoms, chest pain, shortness of breath, focal weakness, palpitations and diaphoresis. Telemetry shows pacer spikes and artifact. Developed hematuria after Gaffney catheter insertion. Discussed with in light of sonogram results, no intervention at this time and recommended outpatient follow-up. Noted low BP yesterday from IV Lasix Objective Vitals Vital Signs Date Time Temp Pulse Resp B/P (MAP) Pulse Ox O2 Delivery O2 Flow Rate FiO2 06/26/17 09:18 94 21 06/26/17 08:49 97.7 89 18 99/69 (79) 94 06/26/17 05:27 97.6 76 18 92/73 (79) 96 06/26/17 00:55 98.1 80 18 92/66 (75) 93 06/25/17 21:18 93 06/25/17 20:55 98.1 80 18 80/60 (67) 93 06/25/17 18:12 101/54 (70) 06/25/17 16:56 96.5 77 16 82/54 (63) 95 06/25/17 12:00 97 06/25/17 12:00 96.3 59 14 83/52 (62) 95 82/51 (61) I/O 06/25/17 06/25/17 06/25/17 06/26/17 06/26/17 06/26/17 07:00 15:00 23:00 07:00 15:00 23:00 Intake Total 420 ml Output Total 100 ml Balance 320 ml Intake Oral 420 ml Output Urine Total 100 ml # Voids 4 Result Diagram: 06/25/17 1925 06/26/17 0724 Imaging Last Impressions Renal Ultrasound 06/25/17 0000 Signed Impressions: Service Date/Time: Sunday, June 25, 2017 16:42 - CONCLUSION: 1. No hydronephrosis or other acute renal abnormality demonstrated. 2. Nonobstructing right renal stone. 3. Heterogeneous enlargement of the prostate. 4. Thickwalled urinary bladder and containing debris, nonspecific. Suhail Reyes MD Chest X-Ray 06/24/17 1001 Signed Impressions: Service Date/Time: Saturday, June 24, 2017 10:23 - CONCLUSION: Stable chest appearance. Suhail Tang MD Objective Remarks This is a frail-appearing cachectic-looking patient, in no apparent distress. No rashes, ecchymoses or lesions. Cool and dry. Pupils equal round and reactive. Extraocular motions intact. No scleral icterus. No injection or drainage. No JVD or lymphadenopathy. Supple, nontender, no meningeal signs. Irregular rate and rhythm without murmurs, gallops, or rubs. Breath sounds equal bilaterally. No wheezes, rales, or rhonchi. Decreased breath sounds Abdomen soft, non-tender, nondistended. No guarding. Extremities without clubbing, cyanosis, or edema. No joint tenderness, effusion , or edema noted. No calf tenderness. Negative Homans sign bilaterally. Awake and alert. Cranial nerves II through XII intact. Generalized weakness A/P Problem List: (1) Acute on chronic systolic congestive heart failure ICD Code: I50.23 - Acute on chronic systolic (congestive) heart failure Status: Acute (2) History of stroke ICD Code: Z86.73 - Personal history of transient ischemic attack (TIA), and cerebral infarction without residual deficits Status: Chronic (3) Cardiomyopathy ICD Code: I42.9 - Cardiomyopathy, unspecified Status: Chronic (4) Chronic obstructive pulmonary disease ICD Code: J44.9 - Chronic obstructive pulmonary disease, unspecified Status: Chronic (5) Hyperlipidemia ICD Code: E78.5 - Hyperlipidemia, unspecified Status: Chronic (6) Gastroesophageal reflux ICD Code: K21.9 - Gastro-esophageal reflux disease without esophagitis Status: Chronic (7) Dyspnea ICD Code: R06.00 - Dyspnea, unspecified Status: Chronic (8) Generalized weakness ICD Code: R53.1 - Weakness Status: Acute (9) Atrial fibrillation ICD Code: I48.91 - Unspecified atrial fibrillation Status: Chronic (10) Coronary artery disease ICD Code: I25.10 - Atherosclerotic heart disease of [place] coronary artery without angina pectoris Status: Chronic Assessment and Plan 86-year-old male with history of chronic anticoagulation on warfarin secondary to A. fib , chronic thrombocytopenia, Hyperlipidemia, Congestive heart failure, COPD, CVA in 2010, Coronary artery disease, GERD, Urinary frequency, Hiatal hernia, Hypertension and possible sleep apnea. He presents with generalized weakness which is secondary to heart failure exacerbation and severe deconditioning Acute on chronic systolic/diastolic Heart failure exacerbation. Repeat EF shows 20% with diastolic dysfunction. Continue diuresis with Lasix monitor renal function and electrolytes. CHF education, I/O and monitor weight. Consider beta neelam and brannon if hemodynamically improved Arrhythmia with history of pacemaker insertion. Pacer check requested Hypertension now with hypotension secondary to diuresis. Improving and MAP at least 60. Decreased Lasix to 20 mg IV daily with hold parameters. Noncompliance. Counseled Hyperglycemia. A1c 5.2 Severe deconditioning PT and OT A. fib with CVR. Because of noncompliance, Coumadin switched to Eliquis. We' ll also continue aspirin with history of CVA and CAD patient agrees and is aware risk of bleeding Traumatic hematuria. Sonogram shows enlarged prostate, nonobstructing right kidney stone and thickened urinary bladder wall. Discussed with , no surgical intervention and recommended outpatient follow-up. This is improving. We'll continue to monitor off Eliquis and aspirin DVT prophylaxis with Eliquis which is currently on hold secondary to hematuria Discharge Planning Not stable for discharge Caleb Ren MD Jun 26, 2017 11:22
[2017-06-27] VITALS (13 sets, daily range): BP systolic 91–108; BP diastolic 54–65; PULSE 65–74; RESP 16–18; TEMP 96.6–98.5; O2SAT 90–99
[2017-06-27] MEDS: POTASSIUM CHLORIDE 20 MEQ CONTROLLED RELEASE TAB PO SCH ×2 (09:59→21:40)
[2017-06-27] MEDS: ATORVASTATIN 40 MG TAB PO SCH (09:59)
[2017-06-27] MEDS: DOCUSATE SODIUM 50 MG/SENNA 8.6 MG TAB PO SCH ×2 (09:59→21:40)
[2017-06-27] MEDS: SODIUM CHLORIDE 0.9% FLUSH 10 ML FLUSH IV FLUSH SCH ×2 (10:00→21:41)
[2017-06-27] MEDS: APIXABAN 5 MG TABLET PO SCH ×2 (10:01→21:40)
--- NOTE | 2017-06-27 13:09 | HHI.PR ---
Subjective Remarks Follow-up weakness. Patient has no complaints today. RN contacted me earlier concerned of patient's lethargy. Patient states he slept well. Improved hematuria Objective Vitals Vital Signs Date Time Temp Pulse Resp B/P (MAP) Pulse Ox O2 Delivery O2 Flow Rate FiO2 06/27/17 12:06 68 06/27/17 08:26 92 21 06/27/17 06:51 71 06/27/17 06:18 98.1 70 17 108/54 (72) 99 06/27/17 04:00 69 06/27/17 01:14 98.5 72 17 105/57 (73) 96 06/27/17 00:05 70 06/26/17 20:24 21 06/26/17 20:00 98.3 70 18 132/65 (87) 98 06/26/17 20:00 73 06/26/17 16:28 97.9 69 17 115/81 (92) 95 06/26/17 16:11 68 I/O 06/26/17 06/26/17 06/26/17 06/27/17 06/27/17 06/27/17 07:00 15:00 23:00 07:00 15:00 23:00 Intake Total 240 ml Balance 240 ml Intake Oral 240 ml # Voids 5 4 # Bowel Movements 1 Result Diagram: 06/25/17192406/26/17723 Objective Remarks This is a frail-appearing cachectic-looking patient, in no apparent distress. No rashes, ecchymoses or lesions. Cool and dry. Pupils equal round and reactive. Extraocular motions intact. No scleral icterus. No injection or drainage. No JVD or lymphadenopathy. Supple, nontender, no meningeal signs. Irregular rate and rhythm without murmurs, gallops, or rubs. Breath sounds equal bilaterally. No wheezes, rales, or rhonchi. Decreased breath sounds Abdomen soft, non-tender, nondistended. No guarding. Extremities without clubbing, cyanosis, or edema. No joint tenderness, effusion , or edema noted. No calf tenderness. Negative Homans sign bilaterally. Awake and alert. Cranial nerves II through XII intact. Generalized weakness No significant change in PE from previous Procedures none A/P Problem List: (1) Acute on chronic systolic congestive heart failure ICD Code: I50.23 - Acute on chronic systolic (congestive) heart failure Status: Acute (2) History of stroke ICD Code: Z86.73 - Personal history of transient ischemic attack (TIA), and cerebral infarction without residual deficits Status: Chronic (3) Cardiomyopathy ICD Code: I42.9 - Cardiomyopathy, unspecified Status: Chronic (4) Chronic obstructive pulmonary disease ICD Code: J44.9 - Chronic obstructive pulmonary disease, unspecified Status: Chronic (5) Hyperlipidemia ICD Code: E78.5 - Hyperlipidemia, unspecified Status: Chronic (6) Gastroesophageal reflux ICD Code: K21.9 - Gastro-esophageal reflux disease without esophagitis Status: Chronic (7) Dyspnea ICD Code: R06.00 - Dyspnea, unspecified Status: Chronic (8) Generalized weakness ICD Code: R53.1 - Weakness Status: Acute (9) Atrial fibrillation ICD Code: I48.91 - Unspecified atrial fibrillation Status: Chronic (10) Coronary artery disease ICD Code: I25.10 - Atherosclerotic heart disease of [place] coronary artery without angina pectoris Status: Chronic Assessment and Plan 86-year-old male with history of chronic anticoagulation on warfarin secondary to A. fib , chronic thrombocytopenia, Hyperlipidemia, Congestive heart failure, COPD, CVA in 2010, Coronary artery disease, GERD, Urinary frequency, Hiatal hernia, Hypertension and possible sleep apnea. He presents with generalized weakness which is secondary to heart failure exacerbation and severe deconditioning Acute on chronic systolic/diastolic Heart failure exacerbation. Repeat EF shows 20% with diastolic dysfunction. Continue diuresis with Lasix monitor renal function and electrolytes. CHF education, I/O and monitor weight. Consider beta neelam and brannon if hemodynamically improved Hypertension now with hypotension secondary to diuresis. Improving and MAP at least 60. Decreased Lasix to 20 mg IV daily with hold parameters. Noncompliance. Counseled Hyperglycemia. A1c 5.2 Severe deconditioning PT and OT A. fib with CVR. Because of noncompliance, Coumadin switched to Eliquis. We' ll also continue aspirin with history of CVA and CAD patient agrees and is aware risk of bleeding. Pacer check showed paroxysmal A. fib with RVR Traumatic hematuria. Sonogram shows enlarged prostate, nonobstructing right kidney stone and thickened urinary bladder wall. Discussed with , no surgical intervention and recommended outpatient follow-up. This is improving. Restart Eliquis but hold aspirin . Continue to monitor DVT prophylaxis with Eliquis Discharge Planning Not stable for discharge Abando,Shivam MD Jun 27, 2017 13:09
[2017-06-27 15:31] LABS: AUTOMATED NEUTROPHIL # 6.6 TH/MM3 (1.8-7.7); BASOPHIL % 0.3 % (0.0-2.0); EOSINOPHIL % 0.1 % (0.0-4.0); HEMATOCRIT 40.8 % (39.0-51.0); HEMO FLAGS DIFF FINAL; LYMPH % 17.9 % (9.0-44.0); LYMPHOCYTE # 1.6 TH/MM3 (1.0-4.8); MEAN CELL VOLUME 89.8 FL (80.0-100.0); MEAN CORPUSCULAR HEMOGLOBIN 29.9 PG (27.0-34.0); MEAN CORPUSCULAR HGB CONC 33.4 % (32.0-36.0); MONO % 8.9 % (0.0-8.0); NEUT % 72.8 % (16.0-70.0); PLATELET COUNT 152 TH/MM3 (150-450); RED BLOOD COUNT 4.54 MIL/MM3 (4.50-5.90); RED CELL DISTRIBUTION WIDTH 16.3 % (11.6-17.2); WHITE BLOOD COUNT 9.1 TH/MM3 (4.0-11.0)
[2017-06-27] MEDS: FUROSEMIDE 40 MG/4 ML VIAL IVP SCH (15:36)
--- NOTE | 2017-06-27 15:44 | HHI.DS ---
Discharge Summary Admission Date Jun 24, 2017 at 12:27 Discharge Date: Jun 28, 2017 Admitting Diagnosis CHF Exacerbation; Generalized Weakness; LE Weakness (1) Acute on chronic systolic congestive heart failure ICD Code: I50.23 - Acute on chronic systolic (congestive) heart failure Diagnosis: Principal Status: Acute (2) History of stroke ICD Code: Z86.73 - Personal history of transient ischemic attack (TIA), and cerebral infarction without residual deficits Diagnosis: Secondary Status: Chronic (3) Cardiomyopathy ICD Code: I42.9 - Cardiomyopathy, unspecified Diagnosis: Principal Status: Chronic (4) Chronic obstructive pulmonary disease ICD Code: J44.9 - Chronic obstructive pulmonary disease, unspecified Diagnosis: Secondary Status: Chronic (5) Hyperlipidemia ICD Code: E78.5 - Hyperlipidemia, unspecified Diagnosis: Secondary Status: Chronic (6) Gastroesophageal reflux ICD Code: K21.9 - Gastro-esophageal reflux disease without esophagitis Diagnosis: Secondary Status: Chronic (7) Dyspnea ICD Code: R06.00 - Dyspnea, unspecified Diagnosis: Principal Status: Chronic (8) Generalized weakness ICD Code: R53.1 - Weakness Diagnosis: Principal Status: Acute (9) Atrial fibrillation ICD Code: I48.91 - Unspecified atrial fibrillation Diagnosis: Principal Status: Chronic (10) Coronary artery disease ICD Code: I25.10 - Atherosclerotic heart disease of [place] coronary artery without angina pectoris Diagnosis: Principal Status: Chronic Procedures none Brief History - From Admission Mr. Nguyen is a 86-year-old male with past medical history of hypertension, heart failure, and stroke who presented to the ED with weakness in his legs. He states that this started about a week ago when he began to be unable to walk. At baseline he walks freely with a walker. EMS was called to his house twice this week. First time was yesterday when they move him to his bed. The second time was today when they brought him to the ED for because of him being unable to move. He has also developed a cough that started a few days ago productive of white sputum. Of note, he stopped taking his Lasix a month ago because of urinary frequency. He is still having urinary frequency off of the medication. He is also feeling a little short of breath today. No fevers or chills, no night sweats, he has a good appetite. States that he has never felt like this before. CBC/BMP: 06/27/17 1440 06/26/17 0724 Significant Findings Laboratory Tests Test 06/24/17 15:51 06/24/17 19:24 06/25/17 07:03 06/25/17 19:25 Troponin I 0.07 NG/ML (0.02-0.05) 0.07 NG/ML (0.02-0.05) Red Blood Count 4.47 MIL/MM3 (4.50-5.90) 4.34 MIL/MM3 (4.50-5.90) Platelet Count 106 TH/MM3 (150-450) 132 TH/MM3 (150-450) Monocytes (%) (Auto) 13.0 % (0.0-8.0) 8.9 % (0.0-8.0) Blood Urea Nitrogen 24 MG/DL (7-18) 34 MG/DL (7-18) Random Glucose 107 MG/DL (74-106) 136 MG/DL (74-106) Magnesium Level 2.6 MG/DL (1.5-2.5) Total Bilirubin 1.1 MG/DL (0.2-1.0) Estimat Glomerular Filtration Rate 54 ML/MIN (>89) 48 ML/MIN (>89) Hematocrit 38.7 % (39.0-51.0) Neutrophils (%) (Auto) 77.8 % (16.0-70.0) Creatinine 1.41 MG/DL (0.60-1.30) Test 06/26/17 07:24 06/27/17 14:40 Blood Urea Nitrogen 37 MG/DL (7-18) Magnesium Level 2.6 MG/DL (1.5-2.5) Estimat Glomerular Filtration Rate 53 ML/MIN (>89) Neutrophils (%) (Auto) 72.8 % (16.0-70.0) Monocytes (%) (Auto) 8.9 % (0.0-8.0) Imaging Last Impressions Renal Ultrasound 06/25/17 0000 Signed Impressions: Service Date/Time: Sunday, June 25, 2017 16:42 - CONCLUSION: 1. No hydronephrosis or other acute renal abnormality demonstrated. 2. Nonobstructing right renal stone. 3. Heterogeneous enlargement of the prostate. 4. Thickwalled urinary bladder and containing debris, nonspecific. Suhail Reyes MD Chest X-Ray 06/24/17 1001 Signed Impressions: Service Date/Time: Saturday, June 24, 2017 10:23 - CONCLUSION: Stable chest appearance. Suhail Tang MD PE at Discharge This is a frail-appearing cachectic-looking patient, in no apparent distress. No rashes, ecchymoses or lesions. Cool and dry. Pupils equal round and reactive. Extraocular motions intact. No scleral icterus. No injection or drainage. No JVD or lymphadenopathy. Supple, nontender, no meningeal signs. Irregular rate and rhythm without murmurs, gallops, or rubs. Breath sounds equal bilaterally. No wheezes, rales, or rhonchi. Decreased breath sounds Abdomen soft, non-tender, nondistended. No guarding. Extremities without clubbing, cyanosis, or edema. No joint tenderness, effusion , or edema noted. No calf tenderness. Negative Homans sign bilaterally. Awake and alert. Cranial nerves II through XII intact. Generalized weakness No significant change in PE from previous Hospital Course 86-year-old male with history of chronic anticoagulation on warfarin secondary to A. fib , chronic thrombocytopenia, Hyperlipidemia, Congestive heart failure, COPD, CVA in 2010, Coronary artery disease, GERD, Urinary frequency, Hiatal hernia, Hypertension and possible sleep apnea. He presents with generalized weakness which is secondary to heart failure exacerbation and severe deconditioning Acute on chronic systolic/diastolic Heart failure exacerbation. Repeat EF shows 20% with diastolic dysfunction. Continue diuresis with Lasix monitor renal function and electrolytes. CHF education, I/O and monitor weight. Consider beta neelam and brannon if hemodynamically improved Hypertension now with hypotension secondary to diuresis. Improving and MAP at least 60. Decreased Lasix to 20 mg IV daily with hold parameters. Noncompliance. Counseled Hyperglycemia. A1c 5.2 Severe deconditioning PT and OT A. fib with CVR. Because of noncompliance, Coumadin switched to Eliquis. We' ll also continue aspirin with history of CVA and CAD patient agrees and is aware risk of bleeding. Pacer check showed paroxysmal A. fib with RVR Traumatic hematuria. Sonogram shows enlarged prostate, nonobstructing right kidney stone and thickened urinary bladder wall. Discussed with , no surgical intervention and recommended outpatient follow-up. This is improving. Restart Eliquis but hold aspirin . Continue to monitor DVT prophylaxis with Eliquis Pt Condition on Discharge: Stable Discharge Disposition: Discharge to SNF Discharge Time: > 30 minutes Discharge Instructions DIET: Follow Instructions for: Heart Healthy Diet Activities you can perform: Regular-No Restrictions Activities to Avoid: Driving Follow up Referrals: PCP Follow-up - 2-3 Days New Medications: Furosemide (Furosemide) 20 Mg Tab 20 MG PO DAILY for Prevent Heart Failure, #30 TAB 0 Refills Apixaban (Eliquis) 5 Mg Tab 5 MG PO BID for Prevent Blood Clot, #60 TAB Continued Medications: Aspirin DR (Sigrid Aspirin EC Low Dose) 81 Mg Tabdr 81 MG PO DAILY Rosuvastatin (Crestor) 20 Mg Tab 20 MG PO DAILY for Cholesterol Management, #30 TAB 0 Refills Discontinued Medications: Warfarin (Warfarin) 2 Mg Tab 2 MG PO DAILY for Blood Clot Prevention, #30 TAB 0 Refills Caleb Ren MD Jun 27, 2017 15:44
[2017-06-27 15:47] LABS: BICARBONATE 26.2 MEQ/L (21.0-32.0); MAGNESIUM 2.7 MG/DL (1.5-2.5); POTASSIUM 4.7 MEQ/L (3.5-5.1)
[2017-06-28] VITALS: BP 115/64; PULSE 69; RESP 20; TEMP 98.1; O2SAT 96
[2017-06-28 04:00] VITALS: BP 103/59; PULSE 69; PULSE 73; RESP 18; TEMP 98.3; O2SAT 95
[2017-06-28 07:40] VITALS: PULSE 69
[2017-06-28 08:00] VITALS: BP 128/77; PULSE 106; RESP 16; TEMP 96.5; O2SAT 100
[2017-06-28] MEDS ORDERED: FUROSEMIDE 20 MG TAB PO SCH (09:00)
[2017-06-28] MEDS: DOCUSATE SODIUM 50 MG/SENNA 8.6 MG TAB PO SCH (09:00)
[2017-06-28] MEDS: APIXABAN 5 MG TABLET PO SCH (10:06)
[2017-06-28] MEDS: SODIUM CHLORIDE 0.9% FLUSH 10 ML FLUSH IV FLUSH SCH (10:06)
[2017-06-28] MEDS: POTASSIUM CHLORIDE 20 MEQ CONTROLLED RELEASE TAB PO SCH (10:06)
[2017-06-28] MEDS: ATORVASTATIN 40 MG TAB PO SCH (10:06)
--- NOTE | 2017-06-28 10:35 | HHI.PR ---
Objective Vitals Vital Signs Date Time Temp Pulse Resp B/P (MAP) Pulse Ox O2 Delivery O2 Flow Rate FiO2 06/28/17 04:00 98.3 69 18 103/59 (74) 95 06/28/17 04:00 73 06/28/17 00:00 69 06/28/17 00:00 98.1 69 20 115/64 (81) 96 06/27/17 20:00 97.6 74 18 106/63 (77) 95 06/27/17 19:46 90 21 06/27/17 16:00 96.6 65 18 97/63 (74) 96 06/27/17 12:33 96.8 70 16 104/65 (78) 96 06/27/17 12:06 68 06/27/17 12:00 96.8 70 16 104/65 (78) 96 I/O 06/27/17 06/27/17 06/27/17 06/28/17 06/28/17 06/28/17 07:00 15:00 23:00 07:00 15:00 23:00 Intake Total 240 ml 480 ml 480 ml Output Total 100 ml Balance 240 ml 380 ml 480 ml Intake Oral 240 ml 480 ml 480 ml Output Urine Total 100 ml # Voids 4 4 4 # Bowel Movements 2 Result Diagram: 06/27/17 1440 06/27/17 1440 Objective Remarks This is a frail-appearing cachectic-looking patient, in no apparent distress. No rashes, ecchymoses or lesions. Cool and dry. Pupils equal round and reactive. Extraocular motions intact. No scleral icterus. No injection or drainage. No JVD or lymphadenopathy. Supple, nontender, no meningeal signs. Irregular rate and rhythm without murmurs, gallops, or rubs. Breath sounds equal bilaterally. No wheezes, rales, or rhonchi. Decreased breath sounds Abdomen soft, non-tender, nondistended. No guarding. Extremities without clubbing, cyanosis, or edema. No joint tenderness, effusion , or edema noted. No calf tenderness. Negative Homans sign bilaterally. Awake and alert. Cranial nerves II through XII intact. Generalized weakness No significant change in PE from previous Procedures none A/P Problem List: (1) Acute on chronic systolic congestive heart failure ICD Code: I50.23 - Acute on chronic systolic (congestive) heart failure Status: Acute (2) History of stroke ICD Code: Z86.73 - Personal history of transient ischemic attack (TIA), and cerebral infarction without residual deficits Status: Chronic (3) Cardiomyopathy ICD Code: I42.9 - Cardiomyopathy, unspecified Status: Chronic (4) Chronic obstructive pulmonary disease ICD Code: J44.9 - Chronic obstructive pulmonary disease, unspecified Status: Chronic (5) Hyperlipidemia ICD Code: E78.5 - Hyperlipidemia, unspecified Status: Chronic (6) Gastroesophageal reflux ICD Code: K21.9 - Gastro-esophageal reflux disease without esophagitis Status: Chronic (7) Dyspnea ICD Code: R06.00 - Dyspnea, unspecified Status: Chronic (8) Generalized weakness ICD Code: R53.1 - Weakness Status: Acute (9) Atrial fibrillation ICD Code: I48.91 - Unspecified atrial fibrillation Status: Chronic (10) Coronary artery disease ICD Code: I25.10 - Atherosclerotic heart disease of [place] coronary artery without angina pectoris Status: Chronic Assessment and Plan 86-year-old male with history of chronic anticoagulation on warfarin secondary to A. fib , chronic thrombocytopenia, Hyperlipidemia, Congestive heart failure, COPD, CVA in 2010, Coronary artery disease, GERD, Urinary frequency, Hiatal hernia, Hypertension and possible sleep apnea. He presents with generalized weakness which is secondary to heart failure exacerbation and severe deconditioning Acute on chronic systolic/diastolic Heart failure exacerbation. Repeat EF shows 20% with diastolic dysfunction. Continue diuresis with Lasix monitor renal function and electrolytes. CHF education, I/O and monitor weight. Consider beta neelam and brannon if hemodynamically improved Hypertension now with hypotension secondary to diuresis. Improving and MAP at least 60. Decreased Lasix to 20 mg IV daily with hold parameters. Noncompliance. Counseled Hyperglycemia. A1c 5.2 Severe deconditioning PT and OT A. fib with CVR. Because of noncompliance, Coumadin switched to Eliquis. We' ll also continue aspirin with history of CVA and CAD patient agrees and is aware risk of bleeding. Pacer check showed paroxysmal A. fib with RVR Traumatic hematuria. Sonogram shows enlarged prostate, nonobstructing right kidney stone and thickened urinary bladder wall. Discussed with , no surgical intervention and recommended outpatient follow-up. This is improving. Restart Eliquis but hold aspirin . Continue to monitor DVT prophylaxis with Eliquis Discharge Planning Not stable for discharge Caleb Ren MD Jun 28, 2017 10:35
[2017-06-28 11:30] VITALS: O2SAT 92
[2017-06-28 12:33] VITALS: BP 124/66; PULSE 98; RESP 16; TEMP 96.6; O2SAT 100
== END 2017-06-28 14:32 | DRG 292 ==
LOC: NEPC 09:48 → NEDA 12:27 → HOCB 14:59
PROVIDERS: ADMIT Internal Medicine; ATTEND Internal Medicine
DX: I11.0 Hypertensive heart disease with heart failure (principal); E46 Unspecified protein-calorie malnutrition; I95.9 Hypotension, unspecified; I69.351 Hemiplegia and hemiparesis following cerebral infarction affecting right dominant side; I48.2 Chronic atrial fibrillation; I42.9 Cardiomyopathy, unspecified; T83.83XA Hemorrhage due to genitourinary prosthetic devices, implants and grafts, initial encounter; J44.9 Chronic obstructive pulmonary disease, unspecified; R31.0 Gross hematuria; E78.5 Hyperlipidemia, unspecified; G47.30 Sleep apnea, unspecified; I25.10 Atherosclerotic heart disease of native coronary artery without angina pectoris; K21.9 Gastro-esophageal reflux disease without esophagitis; I50.43 Acute on chronic combined systolic (congestive) and diastolic (congestive) heart failure; M19.041 Primary osteoarthritis, right hand; M19.042 Primary osteoarthritis, left hand; R73.9 Hyperglycemia, unspecified; R53.1 Weakness; Z91.81 History of falling; Z68.20 Body mass index [BMI] 20.0-20.9, adult; Z79.01 Long term (current) use of anticoagulants; Z95.1 Presence of aortocoronary bypass graft; Z87.891 Personal history of nicotine dependence; Z95.0 Presence of cardiac pacemaker; Z91.19 Patient's noncompliance with other medical treatment and regimen
CPT/HCPCS: 71010; 76775; 80048; 80053; 80307; 81001; 82140; 82550; 83036; 83605; 83735; 83880; 84100; 84439; 84443; 84484; 85025; 85610; 85730; 87040; 93005; 93306; J1940

== ENCOUNTER 2017-06-29 14:15 | Inpatient (IN) | payer MEDICARE, OTHER ==
[2017-06-29] VITALS (7 sets, daily range): BP systolic 107–114; BP diastolic 66–71; PULSE 68–88; RESP 16–18; TEMP 97.6–97.9; O2SAT 94–98
[~2017-06-29] VITALS: Ht 177.8 cm; Wt 54.5 kg
[~2017-06-29 14:15] MED LIST changes: +APIX5TAB PO; -FURO1TAB62 PO; +FURO20TA PO; -POTA-243 PO; -WARF4TAB51 PO
--- NOTE | 2017-06-29 15:15 | PD ---
HPI Chief Complaint: trouble swallowing Time Seen by Provider: 14:53 Travel History International Travel<30 days: No Contact w/Intl Traveler<30days: No Traveled to known affect area: No History of Present Illness HPI This 86-year-old male is brought from a [place] [facility] because of trouble swallowing. He was admitted to this hospital on June 24. He was admitted for generalized weakness and CHF. He was discharged to [facility]. EKG was sent tears by ambulance because he was unable to swallow. The patient apparently has a history of a stroke and injuring his stroke he had trouble swallowing. The patient himself is unable to give much of a history. He states he tells me that he lives in a home with his . I have called the number we have for the and she has not answered the phone. He tells me that the date is April 24, 1912. He denies that he is having pain. He does have a history of bypass surgery and he has a pacemaker. He has atrial fibrillation and is on Eliquis. He has had a stroke in the past. He has an ejection fraction of only about 15%. When he was admitted to the hospital but apparently at the time of discharge she was walking with a walker. He apparently was unable to swallow at the [place] [facility] when he was offered breakfast. PFSH Past Medical History Hx Anticoagulant Therapy: Yes (WARFARIN ) Arthritis: Yes (HANDS) Asthma: No Heart Rhythm Problems: Yes (underlying afib) Cancer: No Cardiac Catheterization: Yes Cardiovascular Problems: Yes High Cholesterol: Yes Chest Pain: Yes Congestive Heart Failure: Yes COPD: Yes Cerebrovascular Accident: Yes (cva 2010) Coronary Artery Disease: Yes Diminished Hearing: No Endocrine: No GERD: Yes Genitourinary: Yes (FREQUENCY) Hiatal Hernia: Yes Hypertension: Yes Immune Disorder: No Kidney Stones: No Musculoskeletal: Yes Neurologic: Yes (right sided weakness, walks with cane/walker) Psychiatric: No Reproductive: No Respiratory: Yes Immunizations Current: No Migraines: No Renal Failure: No Seizures: No Sleep Apnea: Yes Ulcer: No Past Surgical History Abdominal Aneurysm Repair: Yes Abdominal Surgery: Yes (UMBILICAL; R INGUINAL HERNIA REPAIR) Cardiac Surgery: Yes (1979 CABG; aorta, pacemaker3-54 yrs ago) Coronary Artery Bypass Graft: Yes Ear Surgery: No Endocrine Surgery: No Eye Surgery: No Genitourinary Surgery: No Gynecologic Surgery: No Oral Surgery: No Pacemaker: Yes Thoracic Surgery: No Other Surgery: Yes Social History Alcohol Use: Yes (OCCASSIONAL) Tobacco Use: No (QUIT ) Substance Use: No Allergies-Medications (Allergen,Severity, Reaction): Coded Allergies: No Known Allergies (Verified , 06/24/17) Reported Meds & Prescriptions Reported Meds & Active Scripts Active Furosemide 20 Mg Tab 20 Mg PO DAILY Eliquis (Apixaban) 5 Mg Tab 5 Mg PO BID Reported Crestor (Rosuvastatin Calcium) 20 Mg Tab 20 Mg PO DAILY Sigrid Aspirin EC Low Dose (Aspirin) 81 Mg Tabdr 81 Mg PO DAILY Review of Systems ROS Limitations: Poor Historian General / Constitutional: No: Fever, Chills Eyes: No: Diploplia, Blurred Vision HENT: No: Headaches, Vertigo Cardiovascular: No: Chest Pain or Discomfort, Palpitations Respiratory: No: Cough Gastrointestinal: Positive: Dysphagia Genitourinary: No: Urgency, Frequency Musculoskeletal: No: Myalgias, Arthralgias Skin: No Rash, No Itching Neurologic: Positive: Weakness Endocrine: No: Heat Intolerance, Cold Intolerance Hematologic/Lymphatic: Positive: Easy Bruising Physical Exam Narrative GENERAL: Cachectic male he is extremely thin SKIN: Focused skin assessment warm/dry. HEAD: Atraumatic. Normocephalic. EYES: Pupils equal and round. No scleral icterus. No injection or drainage. ENT: No nasal bleeding or discharge. Mucous membranes pink and moist. NECK: Trachea midline. No JVD. CARDIOVASCULAR: Irregular rate and rhythm. No murmur appreciated. RESPIRATORY: No accessory muscle use. Clear to auscultation. Breath sounds equal bilaterally. GASTROINTESTINAL: Abdomen soft, non-tender, nondistended. Hepatic and splenic margins not palpable. MUSCULOSKELETAL: No obvious deformities. No clubbing. No cyanosis. No edema. NEUROLOGICAL: Awake and alert. His extremities and appears symmetrically weak. He is able to lift both legs against gravity. He is able to hold both arms up PSYCHIATRIC: Patient is not oriented. He is quite confused. He thinks the date is April 24, 1913. He thinks he lives at home with his . He was brought here today from a [place] [facility] Data Data Orders Orders Complete Blood Count With Diff (06/29/17 15:11) Comprehensive Metabolic Panel (06/29/17 15:11) Prothrombin Time / Inr (Pt) (06/29/17 15:11) Act Partial Throm Time (Ptt) (06/29/17 15:11) Urinalysis - C+S If Indicated (06/29/17 15:11) Magnesium (Mg) (06/29/17 15:11) Thyroid Stimulating Hormone (06/29/17 15:11) Chest, Single Ap (06/29/17 15:11) Ct Brain W/O Iv Contrast(Rout) (06/29/17 15:11) Electrocardiogram (06/29/17 15:17) Troponin I (06/29/17:17) MDM Medical Decision Making Medical Screen Exam Complete: Yes Emergency Medical Condition: Yes Medical Record Reviewed: Yes Differential Diagnosis Differential includes CVA, dysphagia, electrolyte imbalance Narrative Course I tried to see if the patient can swallow he was offered some water. He was unable to swallow it. It in the back of his throat and he gagged. Satya Barahona MD Jun 29, 2017 15:15
[2017-06-29] MEDS ORDERED: SODIUM CHLOR 0.9% 1000 ML INJ 1,000 ML IV SCH (15:30)
[2017-06-29 15:42] LABS: AUTOMATED NEUTROPHIL # 9.9 TH/MM3 (1.8-7.7); BASOPHIL # 0.1 TH/MM3 (0-0.2); BASOPHIL % 1.1 % (0.0-2.0); EOSINOPHIL % 0.1 % (0.0-4.0); HEMATOCRIT 40.5 % (39.0-51.0); LYMPH % 6.7 % (9.0-44.0); LYMPHOCYTE # 0.8 TH/MM3 (1.0-4.8); MEAN CELL VOLUME 89.4 FL (80.0-100.0); MEAN CORPUSCULAR HGB CONC 33.5 % (32.0-36.0); MONO % 5.7 % (0.0-8.0); NEUT % 86.4 % (16.0-70.0); PLATELET COUNT 190 TH/MM3 (150-450); RED BLOOD COUNT 4.53 MIL/MM3 (4.50-5.90); RED CELL DISTRIBUTION WIDTH 14.7 % (11.6-17.2); WHITE BLOOD COUNT 11.4 TH/MM3 (4.0-11.0)
[2017-06-29 15:46] LABS: HEMO FLAGS DIFF FINAL
--- NOTE | 2017-06-29 15:51 | RADRPT ---
EXAM DATE/TIME: 06/29/2017 15:23 [facility] COMPARISON: CHEST SINGLE AP, June 24, 2017, 10:23. INDICATIONS : Short of breath, difficulty swallowing MEDICAL HISTORY : Congestive heart failure. SURGICAL HISTORY : Pacemaker. CABG. ENCOUNTER: Initial ACUITY: 1 week PAIN SCORE: 0/10 LOCATION: Bilateral chest FINDINGS: A single view of the chest demonstrates the lungs to be symmetrically aerated without evidence of mas s, infiltrate or effusion. Left subclavian multilead pacer. Clips wires suggest CABG. The cardiomedia stinal contours are unremarkable. Osseous structures are intact. CONCLUSION: Lungs are grossly clear. Clips and wires suggest CABG. Arnoldo Hurley MD on June 29, 2017 at 15:49 Board Certified Radiologist. This report was verified electronically.
[2017-06-29 15:54] LABS: CHLORIDE 104 MEQ/L (98-107); POTASSIUM 4.5 MEQ/L (3.5-5.1); SODIUM (NA) 136 MEQ/L (136-145)
[2017-06-29 15:58] LABS: ANION GAP 8 MEQ/L (5-15); BLOOD UREA NITROGEN 53 MG/DL (7-18); MAGNESIUM 2.6 MG/DL (1.5-2.5)
[2017-06-29 16:01] LABS: ALT (GPT) 29 U/L (12-78); APTT (PATIENT) 33.6 SEC (24.3-30.1); AST (GOT) 31 U/L (15-37); GLOMERULAR FILTRATION RATE 52 ML/MIN (>89); INTERNATIONAL NORMALIZED RATIO 1.2 RATIO; PROTHROMBIN TIME - PATIENT 12.9 SEC (9.8-11.6)
[2017-06-29 16:03] LABS: TOTAL BILIRUBIN ADULT 1.1 MG/DL (0.2-1.0)
[2017-06-29 16:04] LABS: ALKALINE PHOSPHATASE 73 U/L (45-117)
--- NOTE | 2017-06-29 16:12 | RADRPT ---
EXAM DATE/TIME: 06/29/2017 15:49 [facility] COMPARISON: CT BRAIN W/O CONTRAST, November 24, 2015, 20:48. INDICATIONS : Difficulty swallowing. RADIATION DOSE: 61.07 CTDIvol (mGy) MEDICAL HISTORY : Cerebrovascular disease. Cardiovascular disease Hypertension.Anti coagulant therapy. SURGICAL HISTORY : Umbilical hernia repair. Inguinal hernia repair. ENCOUNTER: Initial ACUITY: 1 day PAIN SCALE: 0/10 LOCATION: cranial TECHNIQUE: Multiple contiguous axial images were obtained of the head. Using automated exposure control and adj ustment of the mA and/or kV according to patient size, radiation dose was kept as low as reasonably a chievable to obtain optimal diagnostic quality images. DICOM format image data is available electro nically for review and comparison. FINDINGS: There is marked central and cortical atrophy with dilatation of ventricular and sulcal spaces. There is no parenchymal hemorrhage, acute infarction or mass lesion identified. There are no extra-axial fluid collections appreciated. The posterior fossa is unremarkable with midline fourth ventricle. T he portion of the orbits and paranasal sinuses visualized are unremarkable. Areas of encephalomalacia in the high right frontal region left basal ganglia and bilateral occi pital lobes consistent with old strokes. CONCLUSION: Diffuse atrophy multiple old strokes. No evidence of acute hemorrhage, edema, or mass effect. Arnoldo Hurley MD on June 29, 2017 at 16:10 Board Certified Radiologist. This report was verified electronically.
[2017-06-29] MEDS ORDERED: TEMAZEPAM 15 MG CAP PO PRN (16:30)
[2017-06-29] MEDS ORDERED: NALOXONE HCL 0.4 MG/ML AMP IV PUSH PRN (16:30)
[2017-06-29] MEDS ORDERED: SODIUM CHLORIDE 0.9% FLUSH 10 ML FLUSH IV FLUSH PRN (16:30)
[2017-06-29] MEDS ORDERED: ACETAMINOPHEN 325 MG TAB PO PRN (16:30)
[2017-06-29] MEDS ORDERED: MAGNESIUM HYDROXIDE SUSP 30 ML CUP PO PRN (16:30)
[2017-06-29] MEDS ORDERED: BISACODYL 10 MG SUPP RECTAL PRN (16:30)
[2017-06-29] MEDS ORDERED: SENNOSIDES 8.6 MG TAB PO PRN (16:30)
[2017-06-29] MEDS ORDERED: LACTULOSE SYRUP 20 GM/30 ML CUP PO PRN (16:30)
[2017-06-29] MEDS: SODIUM CHLOR 0.9% 1000 ML INJ 1,000 ML IV SCH (16:39)
--- NOTE | 2017-06-29 18:48 | HHI.HP ---
HPI Service [facility] Primary Care Physician Tad Cox MD Admission Diagnosis Inability to swallow, dehydration Diagnoses: Chief Complaint: innability to swallow, dehydration Travel History International Travel<30 Days: No Contact w/Intl Traveler <30 Da: No Traveled to Known Affected Are: No History of Present Illness 86-year-old male with PMH of Afib on eliquis, arthritis, CAD, HLD, systolic CHF , previous CVA [facility] because of trouble [facility]. He was admitted to this hospital on June 24. He was admitted for generalized weakness and CHF. He was discharged to [facility]. EKG was sent tears by ambulance because he was unable to swallow. The patient apparently has a history of a stroke and injuring his stroke he had trouble swallowing. The patient himself is unable to give much of a history. He states he tells me that he lives in a home with his . I have called the number we have for the and she has not answered the phone. He tells me that the date is April 24, 1913. He denies that he is having pain. He does have a history of bypass surgery and he has a pacemaker. He has atrial fibrillation and is on Eliquis. He has had a stroke in the past. He has an ejection fraction of only about 15%. When he was admitted to the hospital but apparently at the time of discharge she was walking with a walker. He apparently [facility] when he was offered [facility]. Review of Systems ROS Limitations: Clinical Condition, Altered Mental Status Except as stated in HPI: all other systems reviewed are Neg Past Family Social History Past Medical History Afib on eliquis, arthritis, CAD, HLD, systolic CHF, previous CVA 2010 with right sided weakness, walks with cane/walker, copd Past Surgical History Umbilical hernia, right hernia repair , CABG 1979, Pacemaker placement, Reported Medications Reported Meds & Active Scripts Active Furosemide 20 Mg Tab 20 Mg PO DAILY Eliquis (Apixaban) 5 Mg Tab 5 Mg PO BID Reported Crestor (Rosuvastatin Calcium) 20 Mg Tab 20 Mg PO DAILY Sigrid Aspirin EC Low Dose (Aspirin) 81 Mg Tabdr 81 Mg PO DAILY Allergies: Coded Allergies: No Known Allergies (Verified , 06/24/17) Family History Mother and brother with heart problems Social History Occasional EtOH use, quit smoking Physical Exam Vital Signs Vital Signs Date Time Temp Pulse Resp B/P (MAP) Pulse Ox O2 Delivery O2 Flow Rate FiO2 06/29/17 18:00 78 20 110/71 (84) 96 06/29/17 17:20 82 18 108/66 (80) 97 Nasal Cannula 2.00 06/29/17 17:16 97 Nasal Cannula 2.00 06/29/17 17:05 Nasal Cannula 2.00 06/29/17 16:00 88 17 109/67 (81) 98 Nasal Cannula 2.00 06/29/17 14:25 97 Nasal Cannula 2.00 06/29/17 14:20 97.9 72 18 112/70 (84) Physical Exam GENERAL: This is cachectic male very thin, alert and awake, disoriented. SKIN: No rashes, ecchymoses or lesions. Cool and dry. HEAD: Atraumatic. Bitemporal sunken. EYES: Pupils equal round and reactive. Extraocular motions intact. No scleral icterus. No injection or drainage. ENT: Nose without bleeding, purulent drainage or septal hematoma. Throat without erythema, tonsillar hypertrophy or exudate. Uvula midline. Airway patent. NECK: Trachea midline. No JVD or lymphadenopathy. Supple, nontender, no meningeal signs. CARDIOVASCULAR: Irregular rate and rhythm. No murmur appreciated. RESPIRATORY: Clear to auscultation. Breath sounds equal bilaterally. No wheezes , rales, or rhonchi. GASTROINTESTINAL: Abdomen soft, scaphoid, non-tender, nondistended. No hepato- splenomegaly, or palpable masses. No guarding. MUSCULOSKELETAL: Muscle waisting, weak hand quality control operator. Extremities without clubbing , cyanosis, or edema. No joint tenderness, effusion, or edema noted. No calf tenderness. Negative Homans sign bilaterally. NEUROLOGICAL: Awake and alert but disoriented. Cranial nerve grossly intact. Motor grossly intact. Normal speech. PSYCHIATRIC: Patient is not oriented. He is quite confused. He thinks the date is April 24, 1913. He thinks he lives at home with his . Laboratory Laboratory Tests Test 06/29/17 15:33 White Blood Count 11.4 Red Blood Count 4.53 Hemoglobin 13.6 Hematocrit 40.5 Mean Corpuscular Volume 89.4 Mean Corpuscular Hemoglobin 30.0 Mean Corpuscular Hemoglobin Concent 33.5 Red Cell Distribution Width 14.7 Platelet Count 190 Mean Platelet Volume 8.2 Neutrophils (%) (Auto) 86.4 Lymphocytes (%) (Auto) 6.7 Monocytes (%) (Auto) 5.7 Eosinophils (%) (Auto) 0.1 Basophils (%) (Auto) 1.1 Neutrophils # (Auto) 9.9 Lymphocytes # (Auto) 0.8 Monocytes # (Auto) 0.6 Eosinophils # (Auto) 0.0 Basophils # (Auto) 0.1 CBC Comment DIFF FINAL Differential Comment Prothrombin Time 12.9 Prothromb Time International Ratio 1.2 Activated Partial Thromboplast Time 33.6 Blood Urea Nitrogen 53 Creatinine 1.30 Random Glucose 110 Total Protein 7.3 Albumin 3.5 Calcium Level 10.1 Magnesium Level 2.6 Alkaline Phosphatase 73 Aspartate Amino Transf (AST/SGOT) 31 Alanine Aminotransferase (ALT/SGPT) 29 Total Bilirubin 1.1 Sodium Level 136 Potassium Level 4.5 Chloride Level 104 Carbon Dioxide Level 24.0 Anion Gap 8 Estimat Glomerular Filtration Rate 52 Troponin I 0.04 Thyroid Stimulating Hormone 3rd Gen 2.510 Result Diagram: 06/29/17 1533 06/29/173 Caprini VTE Risk Assessment Caprini VTE Risk Assessment: Mod/High Risk (score >= 2) Caprini Risk Assessment Model Point Value = 1 Point Value = 2 Point Value = 3 Point Value = 5 Age 41-60 Minor surgery BMI > 25 kg/m2 Swollen legs Varicose veins or History of unexplained or recurrent spontaneous Oral contraceptives or hormone replacement Sepsis (< 1 month) Serious lung disease, including pneumonia (< 1 month) Abnormal pulmonary function Acute myocardial infarction Congestive heart failure (< 1 month) History of inflammatory bowel disease Medical patient at bed rest Age 61-74 Arthroscopic surgery Major open surgery (> 45 min) Laparoscopic surgery (> 45 min) Malignancy Confined to bed (> 72 hours) Immobilizing plaster cast Central venous access Age >= 75 History of VTE Family history of VTE Factor V Leiden Prothrombin 25309P Lupus anticoagulant Anticardiolipin antibodies Elevated serum homocysteine Heparin-induced thrombocytopenia Other congenital or acquired thrombophilia Stroke (< 1 month) Elective arthroplasty Hip, pelvis, or leg fracture Acute spinal cord injury (< 1 month) Prophylaxis Regimen Total Risk Factor Score Risk Level Prophylaxis Regimen 0-1 Low Early ambulation 2 Moderate Order ONE of the following: *Sequential Compression Device (SCD) *Heparin 5000 units SQ BID 3-4 Higher Order ONE of the following medications: *Heparin 5000 units SQ TID *Enoxaparin/Lovenox 40 mg SQ daily (WT < 150 kg, CrCl > 30 mL/min) *Enoxaparin/Lovenox 30 mg SQ daily (WT < 150 kg, CrCl > 10-29 mL/min) *Enoxaparin/Lovenox 30 mg SQ BID (WT < 150 kg, CrCl > 30 mL/min) AND/OR *Sequential Compression Device (SCD) 5 or more Highest Order ONE of the following medications: *Heparin 5000 units SQ TID (Preferred with Epidurals) *Enoxaparin/Lovenox 40 mg SQ daily (WT < 150 kg, CrCl > 30 mL/min) *Enoxaparin/Lovenox 30 mg SQ daily (WT < 150 kg, CrCl > 10-29 mL/min) *Enoxaparin/Lovenox 30 mg SQ BID (WT < 150 kg, CrCl > 30 mL/min) AND *Sequential Compression Device (SCD) Assessment and Plan Assessment and Plan Dysphagia Protein calorie malnutrition had no PO intake 2/2 dysphagia: cachectic male, with muscle waisting, bitemporal waisting, weak hand quality control operator CARLITOS/dehydration BUN 53 with creatinine of 1. 3. Chest x-ray shows clear lungs. CT scan head shows diffuse atrophy and multiple old strokes. There is no evidence for acute hemorrhage, edema or mass effect. Order modified barium swallow eval. Consult speech therapy Consult GI for further eval Start IVF Monitor VS Chronic medical problems appears stable, restart home meds as indicated DVT ppx eliquis Discussed Condition With patient, nurse, ED physician Physician Certification 2 Midnight Certification Type: Admission for Inpatient Services Order for Inpatient Services The services are ordered in accordance with Medicare regulations or non- Medicare payer requirements, as applicable. In the case of services not specified as inpatient-only, they are appropriately provided as inpatient services in accordance with the 2-midnight benchmark. Estimated LOS (days): 3 days is the estimated time the patient will need to remain in the hospital, assuming treatment plan goals are met and no additional complications. Post-Hospital Plan: Home Christa East MD Jun 29, 2017 18:48
[2017-06-29] MEDS: ENOXAPARIN SODIUM 30 MG/0.3 ML SYRINGE SQ SCH (18:57)
[2017-06-29 19:51] LABS: BLOOD, URINE LARGE (NEG); GLUCOSE,URINE NEG (NEG); KETONE, URINE TRACE mg/dL (NEG); NITRITE,URINE POS (NEG); PH, URINE GREATER/EQUAL 9.0 (5.0-8.5)
[2017-06-29 20:23] LABS: MUCUS URINE MANY /lpf (OCC); RBC, URINE INNUM /hpf (0-3); SQUAMOUS EPITHELIAL CELL URINE 0-5 /hpf (0-5); URINE COLOR AMBER (YELLW/STRAW)
[2017-06-29 20:24] LABS: BACTERIA, URINE MANY /hpf; COMMENT (UR) CULTURE INDICATED; CULTURE IF INDICATED CULTURE INDICATED; TRIPLE PHOSPHATE CRYSTAL,URINE MOD /hpf
[2017-06-29] MEDS: DOCUSATE SODIUM 50 MG/SENNA 8.6 MG TAB PO SCH (20:59)
[2017-06-29] MEDS: APIXABAN 5 MG TABLET PO SCH (21:00)
[2017-06-29] MEDS: SODIUM CHLORIDE 0.9% FLUSH 10 ML FLUSH IV FLUSH SCH (21:00)
[2017-06-30] VITALS (9 sets, daily range): BP systolic 83–167; BP diastolic 46–102; PULSE 65–90; RESP 16–32; TEMP 96.9–101.8; O2SAT 94–98
[2017-06-30] MEDS: SODIUM CHLOR 0.9% 1000 ML INJ 1,000 ML IV SCH ×2 (05:20→12:27)
[2017-06-30 05:48] LABS: AUTOMATED NEUTROPHIL # 3.3 TH/MM3 (1.8-7.7); BASOPHIL % 0.3 % (0.0-2.0); EOSINOPHIL % 0.2 % (0.0-4.0); HEMATOCRIT 41.6 % (39.0-51.0); HEMO FLAGS DIFF FINAL; LYMPH % 15.3 % (9.0-44.0); LYMPHOCYTE # 0.6 TH/MM3 (1.0-4.8); MEAN CELL VOLUME 91.1 FL (80.0-100.0); MEAN CORPUSCULAR HEMOGLOBIN 29.7 PG (27.0-34.0); MEAN CORPUSCULAR HGB CONC 32.6 % (32.0-36.0); MONO % 2.4 % (0.0-8.0); NEUT % 81.8 % (16.0-70.0); PLATELET COUNT 194 TH/MM3 (150-450); RED BLOOD COUNT 4.57 MIL/MM3 (4.50-5.90); RED CELL DISTRIBUTION WIDTH 15.2 % (11.6-17.2)
[2017-06-30 05:58] LABS: POTASSIUM 4.3 MEQ/L (3.5-5.1)
[2017-06-30 06:05] LABS: BICARBONATE 20.8 MEQ/L (21.0-32.0)
[2017-06-30] MEDS ORDERED: ACETAMINOPHEN 650 MG SUPP RECTAL ONE (06:15)
[2017-06-30] MEDS: cefTRIAXone INJ 1,000 MG in SODIUM CHLORIDE 0.9% INJ 100 ML IV SCH (06:25)
[2017-06-30] MEDS: SODIUM CHLORIDE 0.9% FLUSH 10 ML FLUSH IV FLUSH SCH ×2 (09:00→20:24)
[2017-06-30] MEDS: DOCUSATE SODIUM 50 MG/SENNA 8.6 MG TAB PO SCH ×2 (09:00→20:24)
[2017-06-30] MEDS: FUROSEMIDE 20 MG TAB PO SCH (09:00)
[2017-06-30] MEDS: ATORVASTATIN 40 MG TAB PO SCH (09:00)
[2017-06-30] MEDS: ASPIRIN EC 81 MG TABEC PO SCH (09:00)
[2017-06-30] MEDS: APIXABAN 5 MG TABLET PO SCH ×2 (09:00→20:24)
[2017-06-30] MEDS ORDERED: PNEUMOCOCCAL POLYVALENT INJ 25 MCG/0.5 ML SYR IM ONE (10:00)
--- NOTE | 2017-06-30 10:54 | PD.CONS ---
Consult Service Palliative Care . Consult Requested By Dr. East . Primary Care Physician Tad Cox MD . Reason for Consultation a. To assist with evaluation and management of symptoms including: dyspnea, dysphagia, generalized weakness b. To assist medical decision maker(s) with: better understanding of current medical conditions; weighing benefits/burdens of medical treatment options; making medical treatment decisions. . 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 The patient was having difficulty swallowing and was sent to [facility] ED for evaluation. Of note, the patient was recently hospitalized from 06/24/17 through 06/28/17 with generalized weak weakness and CHF exacerbation. Upon discharge, he was transferred to [facility]. Patient was confused, unable to provide much history. Per review of notes, patient is an EF of only about 15%. Additional diagnostic data: * Vital signs: Pulse 72, respirations 18, blood pressure 112/70, temperature 97.9 * WBC 11.4, hemoglobin 13.6, hematocrit 40.5, platelets 190, neutrophils 86.4% * Sodium: 136, potassium 4.5, chloride 104, carbon dioxide 24.0, glucose 110, calcium 10.1, magnesium 2.6 * BUN: 53, creatinine 1.30, GFR 52 * The total bilirubin: 1.1, AST 31, ALT 29, alkaline phosphatase 73 * Troponin: 0.04 * Total protein: 7.3, albumin 3.5 * TSH 13 or induration: 2.510 * PT: 12.9, INR 1.2, APTT 33.6 * Urinalysis suspicious for UTI; urine culture indicated. * CT of the head revealed diffuse atrophy, multiple old strokes. There was no evidence of acute hemorrhage, edema or mass effect. * Chest x-ray showing grossly clear lungs. Patient was unable to swallow while in the ED. He was admitted for further evaluation and medical management. Will order modified barium swallow evaluation. Speech therapy and gastroenterology consults pending. Palliative Care was consulted to assist with symptom management and to discuss with the patient/family the benefits and burdens of his current illnesses and the options regarding future care. . Function/Cognitive Trajectory This is the patient's third hospitalization since September,. He was hospitalized in September and again in May with CHF exacerbations. Upon discharge in September/2016 he returned home with home health care. He was hospitalized from June 24 through June 28 of this year and was transferred to a senior care facility upon discharge. He returned to the hospital the following day on 06/29/2017 and was subsequently admitted. Further information pending conversations with the patient's family. . (Tiff Irwin) Review of Systems ROS Limitations: Speech Impaired Constitutional: COMPLAINS OF: Fatigue, Weight loss, Change in appetite Respiratory: COMPLAINS OF: Shortness of breath Cardiovascular: DENIES: Chest pain, Lower Extremity Edema Gastrointestinal: DENIES: Abdominal pain Neurologic: COMPLAINS OF: Localized weakness, Speech Problems Psychiatric: COMPLAINS OF: Confusion (Tiff Irwin) Past Family Social History Coded Allergies: No Known Allergies (Verified , 06/24/17) Past Medical History Hyperlipidemia Coronary disease History myocardial infarction Chronic systolic congestive heart failure Chronic obstructive pulmonary disease Chronic atrial fibrillation History of CVA Gastroesophageal reflux History of abdominal aortic aneurysm . Past Surgical History Coronary artery bypass graft Abdominal aortic repair Inguinal hernia repair Umbilical hernia. Thoracentesis Permanent pacemaker placement . Reported Medications Crestor (Rosuvastatin Calcium) 20 Mg Tab 20 Mg PO DAILY Sigrid Aspirin EC Low Dose (Aspirin) 81 Mg Tabdr 81 Mg PO DAILY . Current Medications Medications (Trade) Dose Ordered Sig/Bailey Route Start Time Stop Time Status Last Admin Sodium Chloride 1,000 ml @ 42 mls/hr [id number] IV 06/29/17 15:30 06/29/17 15:44 Sodium Chloride 1,000 ml @ 100 mls/hr Q10H IV 06/29/17 16:27 06/30/17 05:20 (NS Flush) 2 ml UNSCH PRN IV FLUSH 06/29/17 16:30 (NS Flush) 2 ml BID IV FLUSH 06/29/17 21:00 (Tylenol) 650 mg Q4H PRN PO 06/29/17 16:30 (Restoril) 15 mg HS PRN PO 06/29/17 16:30 (Lovenox Inj) 30 mg Q24H SQ 06/29/17 17:00 06/29/17 18:57 (Narcan Inj) 0.4 mg UNSCH PRN IV PUSH 06/29/17 16:30 (Biibana-Colace) 1 tab BID PO 06/29/17 21:00 (Milk Of Magnesia Liq) 30 ml Q12H PRN PO 06/29/17 16:30 (Senokot) 17.2 mg Q12H PRN PO 06/29/17 16:30 (Dulcolax Supp) 10 mg DAILY PRN RECTAL 06/29/17 16:30 (Lactulose Liq) 30 ml DAILY PRN PO 06/29/17 16:30 (Eliquis) 5 mg BID PO 06/29/17 21:00 (Ecotrin Ec) 81 mg DAILY PO 06/30/17 09:00 (Lasix) 20 mg DAILY PO 06/30/17 09:00 (Lipitor) 40 mg DAILY PO 06/30/17 09:00 Ceftriaxone Sodium 1000 mg/ Sodium Chloride 100 ml @ 200 mls/hr Q24H IV 06/30/17 06:15 06/30/17 06:25 . Family History Mother and brother with heart problems. . Substance Use Tobacco: Remote smoking history, quit 50+ years ago. Alcohol: None known Prescription med abuse: None known Illicits: None known . Psychosocial History Patient is originally from [place]. He worked in [employer] sales. He has been to his second , Sheryl, for approximately 32 years. The patient has 2 adult sons (Mathew and Cesar) who lives in [place]. . Spiritual/Cultural Factors Protestant vick . (Tiff Irwin) Documented care wishes: No known documented care wishes completed. . Today's verbally stated goals: Patient with like to speak with his (Sheryl) before making any changes in his medical treatment goals. Goals will remain aggressive at this time. . Family/friends goals: Patient's does not feel comfortable participating in medical treatment decision making without the assistance of the patient's son. She is attempting to find the patient's son's phone number and will forward it to palliative care when it is located. . Ethical and Legal Issues Per [place] statutes, in the absence of written advanced directives healthcare proxy decision-making falls to the patient's (Sheryl). . (Tiff Irwin) Physical Exam Vital Signs Date Time Temp Pulse Resp B/P (MAP) Pulse Ox O2 Delivery O2 Flow Rate FiO2 06/30/17 08:29 98.3 69 20 86/52 (63) 96 06/30/17 08:00 96 Nasal Cannula 2.00 06/30/17 05:25 101.0 90 32 113/76 (88) 06/30/17 00:00 96.9 72 16 104/68 (80) 97 06/29/17 20:33 97.6 69 16 114/70 (85) 98 06/29/17 20:33 94 Nasal Cannula 2.00 06/29/17 18:40 68 16 107/70 (82) 97 06/29/17 18:00 78 20 110/71 (84) 96 06/29/17 17:20 82 18 108/66 (80) 97 Nasal Cannula 2.00 06/29/17 17:16 97 Nasal Cannula 2.00 06/29/17 17:05 Nasal Cannula 2.00 06/29/17 16:00 88 17 109/67 (81) 98 Nasal Cannula 2.00 06/29/17 14:25 97 Nasal Cannula 2.00 06/29/17 14:20 97.9 72 18 112/70 (84) . Exam CONSTITUTIONAL/GENERAL: This is a frail, cachectic appearing elderly male patient in no acute distress TUBES/LINES/DRAINS:PIV x 1 SKIN: Pale, warm, loose skin. Temperature appropriate. HEAD: Atraumatic. Normocephalic. EYES: Pupils equal and round. No scleral icterus. No injection or drainage. ENT: Nose without bleeding or purulent drainage. Mucous membranes dry NECK: Trachea midline. No JVD CARDIOVASCULAR: Regular rate and rhythm. No murmur appreciated RESPIRATORY/CHEST: Breath sounds equal bilaterally. No wheezes, rales, or rhonchi. No accessory muscle use GASTROINTESTINAL: Abdomen soft, non-tender, nondistended. Bowel sounds present. GENITOURINARY: Without palpable bladder distension. MUSCULOSKELETAL: Extremities without edema. No obvious deformities. Bilateral temporal wasting. Muscle wasting in all extremities. LYMPHATICS: No palpable cervical or supraclavicular adenopathy. NEUROLOGICAL: Awake, somewhat confused. Delayed response to simple questions. Fatigues quickly during conversation. PSYCHIATRIC: No obvious anxiety/depression. No apparent hallucinations or other psychotic thought process. . (Tiff Irwin) Diagnostic Tests Laboratory Laboratory Tests Test 06/29/17 15:33 06/29/17 19:45 06/30/17 04:55 White Blood Count 11.4 TH/MM3 (4.0-11.0) 4.0 TH/MM3 (4.0-11.0) Red Blood Count 4.53 MIL/MM3 (4.50-5.90) 4.57 MIL/MM3 (4.50-5.90) Hemoglobin 13.6 GM/DL (13.0-17.0) 13.6 GM/DL (13.0-17.0) Hematocrit 40.5 % (39.0-51.0) 41.6 % (39.0-51.0) Mean Corpuscular Volume 89.4 FL (80.0-100.0) 91.1 FL (80.0-100.0) Mean Corpuscular Hemoglobin 30.0 PG (27.0-34.0) 29.7 PG (27.0-34.0) Mean Corpuscular Hemoglobin Concent 33.5 % (32.0-36.0) 32.6 % (32.0-36.0) Red Cell Distribution Width 14.7 % (11.6-17.2) 15.2 % (11.6-17.2) Platelet Count 190 TH/MM3 (150-450) 194 TH/MM3 (150-450) Mean Platelet Volume 8.2 FL (7.0-11.0) 9.0 FL (7.0-11.0) Neutrophils (%) (Auto) 86.4 % (16.0-70.0) 81.8 % (16.0-70.0) Lymphocytes (%) (Auto) 6.7 % (9.0-44.0) 15.3 % (9.0-44.0) Monocytes (%) (Auto) 5.7 % (0.0-8.0) 2.4 % (0.0-8.0) Eosinophils (%) (Auto) 0.1 % (0.0-4.0) 0.2 % (0.0-4.0) Basophils (%) (Auto) 1.1 % (0.0-2.0) 0.3 % (0.0-2.0) Neutrophils # (Auto) 9.9 TH/MM3 (1.8-7.7) 3.3 TH/MM3 (1.8-7.7) Lymphocytes # (Auto) 0.8 TH/MM3 (1.0-4.8) 0.6 TH/MM3 (1.0-4.8) Monocytes # (Auto) 0.6 TH/MM3 (0-0.9) 0.1 TH/MM3 (0-0.9) Eosinophils # (Auto) 0.0 TH/MM3 (0-0.4) 0.0 TH/MM3 (0-0.4) Basophils # (Auto) 0.1 TH/MM3 (0-0.2) 0.0 TH/MM3 (0-0.2) CBC Comment DIFF FINAL DIFF FINAL Differential Comment Prothrombin Time 12.9 SEC (9.8-11.6) Prothromb Time International Ratio 1.2 RATIO Activated Partial Thromboplast Time 33.6 SEC (24.3-30.1) Blood Urea Nitrogen 53 MG/DL (7-18) 53 MG/DL (7-18) Creatinine 1.30 MG/DL (0.60-1.30) 1.40 MG/DL (0.60-1.30) Random Glucose 110 MG/DL (74-106) 76 MG/DL (74-106) Total Protein 7.3 GM/DL (6.4-8.2) Albumin 3.5 GM/DL (3.4-5.0) Calcium Level 10.1 MG/DL (8.5-10.1) 9.9 MG/DL (8.5-10.1) Magnesium Level 2.6 MG/DL (1.5-2.5) Alkaline Phosphatase 73 U/L (45-117) Aspartate Amino Transf (AST/SGOT) 31 U/L (15-37) Alanine Aminotransferase (ALT/SGPT) 29 U/L (12-78) Total Bilirubin 1.1 MG/DL (0.2-1.0) Sodium Level 136 MEQ/L (136-145) 142 MEQ/L (136-145) Potassium Level 4.5 MEQ/L (3.5-5.1) 4.3 MEQ/L (3.5-5.1) Chloride Level 104 MEQ/L (98-107) 108 MEQ/L (98-107) Carbon Dioxide Level 24.0 MEQ/L (21.0-32.0) 20.8 MEQ/L (21.0-32.0) Anion Gap 8 MEQ/L (5-15) 13 MEQ/L (5-15) Estimat Glomerular Filtration Rate 52 ML/MIN (>89) 48 ML/MIN (>89) Troponin I 0.04 NG/ML (0.02-0.05) Thyroid Stimulating Hormone 3rd Gen 2.510 uIU/ML (0.358-3.740) Urine Color SUNSHINE (YELLW/STRAW) Urine Turbidity TURBID (CLEAR) Urine pH GREATER/EQUAL 9.0 (5.0-8.5) Urine Specific Badger 1.019 (1.002-1.035) Urine Protein 100 mg/dL (NEG-TRACE) Urine Glucose (UA) NEG mg/dL (NEG) Urine Ketones TRACE mg/dL (NEG) Urine Occult Blood LARGE (NEG) Urine Nitrite POS (NEG) Urine Bilirubin NEG (NEG) Urine Leukocyte Esterase LARGE (NEG) Urine RBC INNUM /hpf (0-3) Urine WBC 50-99 /hpf (0-5) Urine Squamous Epithelial Cells 0-5 /hpf (0-5) Urine Triple Phosphate Crystals MOD /hpf (NONE) Urine Bacteria MANY /hpf (NONE) Urine Mucus MANY /lpf (OCC) Microscopic Urinalysis Comment CULTURE INDICATED . (Tiff Irwin) Result Diagram: 06/30/17 0455 06/30/17454 Microbiology Microbiology Date/Time Source Procedure Growth Status 06/29/17 19:45 Urine Clean Catch Urine Culture Pending Received Imaging Last [address] 06/29/171510 Signed Impressions: Service Date/Time: Thursday, June 29, 2017 15:49 - CONCLUSION: Diffuse atrophy multiple old strokes. No evidence of acute hemorrhage, edema, or mass effect. Arnoldo Hurley MD Chest X-Ray 06/29/171510 Signed Impressions: Service Date/Time: Thursday, June 29, 2017 15:23 - CONCLUSION: Lungs are grossly clear. Clips and wires suggest CABG. Arnoldo Hurley MD . (Tiff Irwin) Patient/Family Conference Present at Family Conference: Spoke with patient at bedside, and patient's via telephone. . Family Conference Location: Bedside, Telephone Issues Discussed: * Palliative care role, purpose, approach * Additional medical, psychosocial, and spiritual history * Patient/family understanding of the current medical problems * Patient/family understanding of prognosis * Patients goals of care as best understood from advance directives and/or conversations and/or values * Current medical treatment options and benefits/burdens of those options * Likely scenarios comparing ongoing aggressive care with a transition to comfort measures only * Questions answered to the best of my ability * Palliative care contact information provided . (Tiff Irwin) Assessment and Plan Disease Oriented Problem List: (1) CHF (congestive heart failure) (2) History of myocardial infarction (3) Leukocytosis (4) Gastroesophageal reflux (5) Hyperlipidemia (6) Chronic obstructive pulmonary disease (7) Cardiomyopathy (8) History of stroke (9) Coronary artery disease (10) Atrial fibrillation Symptom Scale: (1) Dysphagia (2) Generalized weakness (3) Dyspnea Pertinent Non-Medical Issues Psychosocial: Patient is originally from [place]. He worked in [employer]. He has been to his second , Sheryl, for approximately 32 years. The patient has 2 adult sons (Mathew and Cesar) who lives in [place]. Spiritual: Protestant vick Legal: Per [place] statutes, in the absence of written advanced directives healthcare proxy decision making would fall to the patient's (Sheryl). Ethical issues impacting care: No known ethical issues impacting care at this time. . Important Contacts Sheryl Nguyen, : [phone] . Prognosis Patient is a frail, cachectic appearing elderly male patient with a complex medical history. He has been hospitalized 3 times since September,. He was hospitalized in September and again in May for CHF exacerbations. Most recently the patient was discharged to a senior care facility on 06/28/2017, and returned to the ED the following day for evaluation of dysphasia. The patient is fairly deconditioned; his EF fraction is <20%. His overall prognosis is quite poor, would recommend transitioning to comfort focus care. . Code Status: Full Code Plan * FULL CODE * Decision-making: Per [place] statutes, in the absence of written advanced directives healthcare proxy decision-making falls to the patient's (Sheryl). * The patient's has her own health concerns and is not comfortable making medical decision making without support. The patient reportedly has 2 adult children (Mathew and Cesar) who lives in [place], [place]. She is attempting to find the patient's son's phone number and will forward it to palliative care when it is located. Would recommend joint decision-making. * AGGRESSIVE GOALS-pending family meeting. * Discussed with Dr. East * Palliative care contact information provided to the patient and his . * Spoke to the nurse covering this patient, Hiram. * Symptom management-dysphasia: Patient is currently nothing by mouth pending speech therapy swallow evaluation * Attempted to contact patient's multiple times this afternoon on her home telephone and at the hospital to discuss contact information. * Palliative care will continue to follow this patient throughout his hospitalization to establish trust, assist with symptom management and clarification of medical treatment goals. . (Tiff Irwin) Thank you for the opportunity to participate in the care of Mr. Nguyen. . (Tiff Irwin) Attestation To help prompt me to consider important information that might be impacting today's encounter and assessment, information from prior notes written by myself or my colleagues may have been "brought forward" into today's note. My signature on this note, however, is an attestation that I personally performed the exam, history, and/or decision-making noted today, and, unless otherwise indicated, the interactions with patient, family, and staff as well as the review of records all occurred today. I also attest that the listed assessment and stated plan reflect my best clinical judgment today based on the combination of historical information, prior notes, and today's exam/ interactions. When time spent is documented, it refers only to time spent today by the signer, or if indicated, combined time spent today by collaborating physician/nurse practitioner. . (Tiff Irwin) Collaborating MD Comments Chart reviewed. Case discussed with palliative care ELECTION JUDGE. Above NAYAN note reviewed and I concur. . (Lele Kang MD) Tiff Irwin Jun 30, 2017 10:54 Lele Kang MD Jul 06, 2017 15:07
--- NOTE | 2017-06-30 12:09 | HHI.PR ---
Subjective Remarks Patient remains weak, swallow evaluation pending. The patient complains of thirst. He denies pain. Denies shortness of breath. The patient is unable to answer orientation questions for me. He had a fever last night of 101 and blood pressure was low this morning 86/52. Objective Vitals Vital Signs Date Time Temp Pulse Resp B/P (MAP) Pulse Ox O2 Delivery O2 Flow Rate FiO2 06/30/17 08:29 98.3 69 20 86/52 (63) 96 06/30/17 08:00 96 Nasal Cannula 2.00 06/30/17 05:25 101.0 90 32 113/76 (88) 06/30/17 00:00 96.9 72 16 104/68 (80) 97 06/29/17 20:33 97.6 69 16 114/70 (85) 98 06/29/17 20:33 94 Nasal Cannula 2.00 06/29/17 18:40 68 16 107/70 (82) 97 06/29/17 18:00 78 20 110/71 (84) 96 06/29/17 17:20 82 18 108/66 (80) 97 Nasal Cannula 2.00 06/29/17 17:16 97 Nasal Cannula 2.00 06/29/17 17:05 Nasal Cannula 2.00 06/29/17 16:00 88 17 109/67 (81) 98 Nasal Cannula 2.00 06/29/17 14:25 97 Nasal Cannula 2.00 06/29/17 14:20 97.9 72 18 112/70 (84) I/O 06/29/17 06/29/17 06/29/17 06/30/17 06/30/17 06/30/17 07:00 15:00 23:00 07:00 15:00 23:00 Intake Total 39 ml 1100 ml Balance 39 ml 1100 ml Intake IV Total 39 ml 1100 ml Bladder Scan Volume Amount 117 ml # Voids 1 Result Diagram: 06/30/17 0455 06/30/17 0455 Objective Remarks GENERAL: Frail, cachectic appearing elderly male patient. SKIN: Warm and dry. HEAD: Normocephalic. EYES: No scleral icterus. No injection or drainage. Oropharynx: Mouth is dry. NECK: Supple, trachea midline. No JVD or lymphadenopathy. CARDIOVASCULAR: Regular rate and rhythm without murmurs, gallops, or rubs. RESPIRATORY: Breath sounds equal bilaterally. No accessory muscle use. GASTROINTESTINAL: Abdomen soft, non-tender, nondistended. EXTREMITIES: No cyanosis, or edema. NEUROLOGICAL: Awake, alert, but nods off frequently during exam. Able to move all 4 extremities, face is symmetric. Speech is very slow and dysarthric. A/P Assessment and Plan -Dysphagia - patient has dry mucous membranes, appears to have poor control of oropharyngeal muscles. Speech therapy consultation and modified barium swallow eval pending. Head CT shows diffuse atrophy and multiple strokes. Palliative care is following the patient. Patient currently nothing by mouth. -Acute kidney injury - continue IV fluids -Previous CVA with right sided weakness. -UTI. Continue Rocephin. -Cardiomyopathy, chronic systolic CHF - left ventricular ejection fraction of 20 % as per echocardiogram last month. He was hospitalized for acute CHF several days ago. At this time appears fluid compensated. However monitor for overload as he is on IV fluids. -A. fib-on Eliquis -COPD -DVT prophylaxis with Lovenox. Norma Tomas MD Jun 30, 2017 12:09
[2017-06-30] MEDS: ENOXAPARIN SODIUM 30 MG/0.3 ML SYRINGE SQ SCH (15:51)
--- NOTE | 2017-06-30 16:15 | PD.CONS ---
HPI History of Present Illness This is a 86 year old male who was brought to ED from snf secondary to difficulty swallowing. PMH is significant for Afib (on eliquis), arthritis, AK, COPD, CAD, HLD, systolic CHF, GERD, history of abdominal aortic aneurysm, and previous CVA (residual right-sided weakness). Patient was recently hospitalized 06/24/17 thru 06/28/17 with generalized weakness and CHF exacerbation and discharged to [facility]. HPI is difficult to obtain because patient is a poor historian. is at bedside who is also a poor historian. Son is apparently the POA and lives out of state. (Arti Katz) PFSH Past Medical History HLD Coronary disease History AK Chronic systolic CHF COPD Chronic atrial fibrillation History of CVA GERD History of abdominal aortic aneurysm Past Surgical History Coronary artery bypass graft Abdominal aortic repair Inguinal hernia repair Umbilical hernia Thoracentesis Permanent pacemaker placement (Arti Katz) Coded Allergies: No Known Allergies (Verified , 06/24/17) Medications Current Medications Medications (Trade) Dose Ordered Sig/Bailey Route PRN Reason Start Time Stop Time Status Last Admin Dose Admin Sodium Chloride 1,000 ml @ 100 mls/hr Q10H IV 06/29/17 16:27 06/30/17 12:27 Sodium Chloride (NS Flush) 2 ml UNSCH PRN IV FLUSH FLUSH AFTER USING IV ACCESS 06/29/17 16:30 Sodium Chloride (NS Flush) 2 ml BID IV FLUSH 06/29/17 21:00 Acetaminophen (Tylenol) 650 mg Q4H PRN PO TEMP > 100.4 06/29/17 16:30 Temazepam (Restoril) 15 mg HS PRN PO INSOMNIA 06/29/17 16:30 Enoxaparin Sodium (Lovenox Inj) 30 mg Q24H SQ 06/29/17 17:00 06/30/17 15:51 Naloxone HCl (Narcan Inj) 0.4 mg UNSCH PRN IV PUSH SEE LABEL COMMENTS 06/29/17 16:30 Senna/Docusate Sodium (Bibiana-Colace) 1 tab BID PO 06/29/17 21:00 Magnesium Hydroxide (Milk Of Magnesia Liq) 30 ml Q12H PRN PO MILD - MODERATE CONSTIPATION 06/29/17 16:30 Sennosides (Senokot) 17.2 mg Q12H PRN PO MODERATE - SEVERE CONSTIPATION 06/29/17 16:30 Bisacodyl (Dulcolax Supp) 10 mg DAILY PRN RECTAL SEVERE CONSITIPATION 06/29/17 16:30 Lactulose (Lactulose Liq) 30 ml DAILY PRN PO SEVERE CONSITIPATION 06/29/17 16:30 Apixaban (Eliquis) 5 mg BID PO 06/29/17 21:00 Aspirin (Ecotrin Ec) 81 mg DAILY PO 06/30/17 09:00 Furosemide (Lasix) 20 mg DAILY PO 06/30/17 09:00 Atorvastatin Calcium (Lipitor) 40 mg DAILY PO 06/30/17 09:00 Ceftriaxone Sodium 1000 mg/ Sodium Chloride 100 ml @ 200 mls/hr Q24H IV 06/30/17 06:15 06/30/17 06:25 Family History Unable to assess Social History ETOH, occasional Tobacco, history of use Illicit Drugs, none noted (Arti Katz) Review of Systems ROS Unable to assess (Arti Katz) GI Exam Vitals I&O Vital Signs Date Time Temp Pulse Resp B/P (MAP) Pulse Ox O2 Delivery O2 Flow Rate FiO2 06/30/17 12:29 98.6 72 21 83/48 (60) 94 06/30/17 08:29 98.3 69 20 86/52 (63) 96 06/30/17 08:00 96 Nasal Cannula 2.00 06/30/17 05:25 101.0 90 32 113/76 (88) 06/30/17 00:00 96.9 72 16 104/68 (80) 97 06/29/17 20:33 97.6 69 16 114/70 (85) 98 06/29/17 20:33 94 Nasal Cannula 2.00 06/29/17 18:40 68 16 107/70 (82) 97 06/29/17 18:00 78 20 110/71 (84) 96 06/29/17 17:20 82 18 108/66 (80) 97 Nasal Cannula 2.00 06/29/17 17:16 97 Nasal Cannula 2.00 06/29/17 17:05 Nasal Cannula 2.00 06/29/17 16:00 88 17 109/67 (81) 98 Nasal Cannula 2.00 I/O 06/29/17 06/29/17 06/29/17 06/30/17 06/30/17 06/30/17 07:00 15:00 23:00 07:00 15:00 23:00 Intake Total 39 ml 1100 ml Balance 39 ml 1100 ml Intake IV Total 39 ml 1100 ml Bladder Scan Volume Amount 117 ml # Voids 1 Imaging Last Impressions Head CT 06/29/17 1511 Signed Impressions: Service Date/Time: Thursday, June 29, 2017 15:49 - CONCLUSION: Diffuse atrophy multiple old strokes. No evidence of acute hemorrhage, edema, or mass effect. Arnoldo Hurley MD Chest X-Ray 06/29/171 Signed Impressions: Service Date/Time: Thursday, June 29, 2017 15:23 - CONCLUSION: Lungs are grossly clear. Clips and wires suggest CABG. Arnoldo Hurley MD Laboratory Test 06/29/17 19:45 06/30/17 04:55 Urine Color SUNSHINE Urine Turbidity TURBID Urine pH GREATER/EQUAL 9.0 Urine Specific Clint 1.019 Urine Protein 100 mg/dL Urine Glucose (UA) NEG mg/dL Urine Ketones TRACE mg/dL Urine Occult Blood LARGE Urine Nitrite POS Urine Bilirubin NEG Urine Leukocyte Esterase LARGE Urine RBC INNUM /hpf Urine WBC 50-99 /hpf Urine Squamous Epithelial Cells 0-5 /hpf Urine Triple Phosphate Crystals MOD /hpf Urine Bacteria MANY /hpf Urine Mucus MANY /lpf Microscopic Urinalysis Comment CULTURE INDICATED White Blood Count 4.0 TH/MM3 Red Blood Count 4.57 MIL/MM3 Hemoglobin 13.6 GM/DL Hematocrit 41.6 % Mean Corpuscular Volume 91.1 FL Mean Corpuscular Hemoglobin 29.7 PG Mean Corpuscular Hemoglobin Concent 32.6 % Red Cell Distribution Width 15.2 % Platelet Count 194 TH/MM3 Mean Platelet Volume 9.0 FL Neutrophils (%) (Auto) 81.8 % Lymphocytes (%) (Auto) 15.3 % Monocytes (%) (Auto) 2.4 % Eosinophils (%) (Auto) 0.2 % Basophils (%) (Auto) 0.3 % Neutrophils # (Auto) 3.3 TH/MM3 Lymphocytes # (Auto) 0.6 TH/MM3 Monocytes # (Auto) 0.1 TH/MM3 Eosinophils # (Auto) 0.0 TH/MM3 Basophils # (Auto) 0.0 TH/MM3 CBC Comment DIFF FINAL Differential Comment Blood Urea Nitrogen 53 MG/DL Creatinine 1.40 MG/DL Random Glucose 76 MG/DL Calcium Level 9.9 MG/DL Sodium Level 142 MEQ/L Potassium Level 4.3 MEQ/L Chloride Level 108 MEQ/L Carbon Dioxide Level 20.8 MEQ/L Anion Gap 13 MEQ/L Estimat Glomerular Filtration Rate 48 ML/MIN Date/Time Source Procedure Growth Status 06/29/17 19:45 Urine Clean Catch Urine Culture - Preliminary Gram Negative Jose F Resulted Physical Examination HEENT: Normocephalic; atraumatic; no jaundice. Throat is clear. NECK: Neck is supple CHEST: CTA CARDIAC: RRR with no murmur gallop or rubs. ABDOMEN: Soft, nondistended, nontender; bowel sounds are present EXTREMITIES: No clubbing, cyanosis, or edema. SKIN: Normal; no rash; no jaundice. OCCUPATIONAL HEALTH SPECIALIST: Awake and alert. Confusion noted. (Arti Katz) Assessment and Plan Plan ASSESSMENT: - Dysphagia, speech therapy consultation and modified barium swallow evaluation pending. Head CT (06/29/17)--Diffuse atrophy multiple old strokes. No evidence of acute hemorrhage, edema, or mass effect. Current symptoms with dysphagia most likely secondary to CVA. Palliative care following. at bedside and states their son is the patient's POA. She states he is at work right now, but can call hospital this evening to discuss options. NPO. - Cardiomyopathy, chronic systolic CHF, per attending - Atrial fibrillation, on Eliquis, per attending - COPD, per attending PLAN: - Keep NPO - Palliative care - Await speech therapy evaluation - Await modified barium swallow results - Consider PEG placement. Son is POA and at bedside told me she will call him and ask him to call hospital staff to discuss options. - Supportive care - Further recommendations to follow based on results of above Patient seen and examined by Dr. Watters and myself and this note is written on his behalf. (Arti Katz) Plan Patient was seen and examined, agree with above Notes, patient failed swallow evaluation, family considering palliative care which I think it is very reasonable to do, nation Half Picked Tube but This Is Very High Risk with His General Health Condition Sure It Will Add Anything to His Quality of Life, Waiting on Family's Final Decision (Carlita Watters MD) Arti Katz Jun 30, 2017 16:15 Carlita Watters MD Jun 30, 2017 18:47
[2017-06-30] MEDS: DEXT 5%-NACL 0.9% 1000 ML INJ 1,000 ML IV SCH (18:15)
--- NOTE | 2017-06-30 19:35 | EKG ---
Date Performed: 06/29/2017 Time Performed: 17:05:08 PTAGE: 86 years EKG: ELECTRONIC VENTRICULAR PACEMAKER ABNORMAL RHYTHM ECG PREVIOUS TRACING : 06/24/2017 09.56 Compared to prior tracing no significant change DOCTOR: Robbi Grey Interpretating Date/Time 06/30/2017 19:32:51
[2017-07-01] VITALS (7 sets, daily range): BP systolic 80–115; BP diastolic 58–73; PULSE 63–70; RESP 18–22; TEMP 97–97.7; O2SAT 92–98
[2017-07-01] MEDS: cefTRIAXone INJ 1,000 MG in SODIUM CHLORIDE 0.9% INJ 100 ML IV SCH (05:33)
[2017-07-01 05:46] LABS: POTASSIUM 3.7 MEQ/L (3.5-5.1)
[2017-07-01 05:51] LABS: BICARBONATE 23.3 MEQ/L (21.0-32.0)
[2017-07-01] MEDS: DEXT 5%-NACL 0.9% 1000 ML INJ 1,000 ML IV SCH ×2 (08:47→23:10)
[2017-07-01] MEDS: ATORVASTATIN 40 MG TAB PO SCH (09:00)
[2017-07-01] MEDS: SODIUM CHLORIDE 0.9% FLUSH 10 ML FLUSH IV FLUSH SCH ×2 (09:00→23:10)
[2017-07-01] MEDS: DOCUSATE SODIUM 50 MG/SENNA 8.6 MG TAB PO SCH ×2 (09:00→21:00)
[2017-07-01] MEDS: FUROSEMIDE 20 MG TAB PO SCH (09:00)
[2017-07-01] MEDS: ASPIRIN EC 81 MG TABEC PO SCH (09:00)
[2017-07-01] MEDS: APIXABAN 5 MG TABLET PO SCH ×2 (09:00→21:00)
--- NOTE | 2017-07-01 10:44 | HHI.PR ---
Subjective Remarks Patient is more alert today, states he has no pain or dyspnea. Complains of being hungry - states he was tired yesterday and he thinks he will do better on the swallow evaluation today. Objective Vitals Vital Signs Date Time Temp Pulse Resp B/P (MAP) Pulse Ox O2 Delivery O2 Flow Rate FiO2 07/01/17 08:00 97.6 70 18 97/61 (73) 96 07/01/17 00:00 97.3 63 20 80/58 (65) 95 06/30/17 21:00 96 Nasal Cannula 2.00 06/30/17 20:00 97.0 65 17 85/64 (71) 94 06/30/17 16:29 97.7 72 22 87/46 (60) 98 06/30/17 12:29 98.6 72 21 83/48 (60) 94 I/O 06/30/17 06/30/17 06/30/17 07/01/17 07/01/17 07/01/17 07:00 15:00 23:00 07:00 15:00 23:00 Intake Total 1100 ml 1750 ml 900 ml Output Total 100 ml Balance 1100 ml 1750 ml 800 ml Intake Oral 0 ml 0 ml IV Total 1100 ml 1750 ml 900 ml Output Urine Total 100 ml # Voids 1 2 # Bowel Movements 0 Result Diagram: 06/30/17 0455 07/01/17 0458 Objective Remarks GENERAL: Frail, cachectic appearing elderly male patient. SKIN: Warm and dry. HEAD: Normocephalic. EYES: No scleral icterus. No injection or drainage. Oropharynx: Mouth is dry with thick mucus. NECK: Supple, trachea midline. No JVD or lymphadenopathy. CARDIOVASCULAR: Regular rate and rhythm without murmurs, gallops, or rubs. RESPIRATORY: Breath sounds equal bilaterally. No accessory muscle use. GASTROINTESTINAL: Abdomen soft, non-tender, nondistended. EXTREMITIES: No cyanosis, or edema. NEUROLOGICAL: Awake, alert, oriented to self, place. Speech wnl. MAEW. A/P Assessment and Plan -Dysphagia - patient has dry mucous membranes, appears to have poor control of oropharyngeal muscles. He failed speech therapy modified barium swallow. Head CT showed diffuse atrophy and multiple strokes. Palliative care is following the patient. Patient currently nothing by mouth. continue gentle IVF. ST eval pending today. unclear if patient will elect for feeding tube, at this time he is hoping his swallowing will improve. -Acute kidney injury - resolved. -Previous CVA with right sided weakness. -UTI. Continue Rocephin. -Cardiomyopathy, chronic systolic CHF - left ventricular ejection fraction of 20 % as per echocardiogram last month. He was hospitalized for acute CHF several days ago. At this time appears fluid compensated. However monitor for overload as he is on IV fluids. -A. fib-on Eliquis, held now due to NPO status. -COPD - without exacerbation. -DVT prophylaxis with Lovenox. Norma Tomas MD Jul 01, 2017 10:44
--- NOTE | 2017-07-01 15:05 | HHI.HCPN ---
Spoke with , Sheryl, via telephone in patient's room. She is currently at the hospital awaiting for patient's sons to return from lunch. Attempted to set up family meeting, will not commit without sons. She provided sonMathew's number: [phone]. Left message on his voicemail. Sheryl tells me she and Mr. Nguyen had conversations regarding feeding tube and "therapist can do it tomorrow with their doctor". She further tells me Mr. Nguyen wishes to have this conversation with his sons also. In further conversation it would probably be best if patient and are supported by sons regarding any decision making. Palliative care awaiting return call from sonMathew, to set up family meeting. Christin Zaidi, FISH Jul 01, 2017 15:05
--- NOTE | 2017-07-01 15:39 | HHI.GIFU ---
Subjective Remarks Sitting up in chair. at bedside. States he is not sure if he wants PEG tube , but does state he is hungry. He wants his son and him to make that decision together. (Arti Katz) Objective Vitals I&O Vital Signs Date Time Temp Pulse Resp B/P (MAP) Pulse Ox O2 Delivery O2 Flow Rate FiO2 07/01/17 12:00 97.7 70 22 97/66 (76) 95 07/01/17 11:47 92 21 07/01/17 08:00 97.6 70 18 97/61 (73) 96 07/01/17 00:00 97.3 63 20 80/58 (65) 95 06/30/17 21:00 96 Nasal Cannula 2.00 06/30/17 20:00 97.0 65 17 85/64 (71) 94 06/30/17 16:29 97.7 72 22 87/46 (60) 98 I/O 06/30/17 06/30/17 06/30/17 07/01/17 07/01/17 07/01/17 07:00 15:00 23:00 07:00 15:00 23:00 Intake Total 1100 ml 1750 ml 900 ml Output Total 100 ml Balance 1100 ml 1750 ml 800 ml Intake Oral 0 ml 0 ml IV Total 1100 ml 1750 ml 900 ml Output Urine Total 100 ml # Voids 1 2 # Bowel Movements 0 Laboratory Laboratory Tests Test 07/01/17 04:58 Blood Urea Nitrogen 52 Creatinine 1.00 Random Glucose 100 Calcium Level 9.4 Sodium Level 146 Potassium Level 3.7 Chloride Level 114 Carbon Dioxide Level 23.3 Anion Gap 9 Estimat Glomerular Filtration Rate 71 Date/Time Source Procedure Growth Status 06/29/17 19:45 Urine Clean Catch Urine Culture - Final Proteus Mirabilis Complete Imaging Last Impressions Head CT 06/29/171 Signed Impressions: Service Date/Time: Thursday, June 29, 2017 15:49 - CONCLUSION: Diffuse atrophy multiple old strokes. No evidence of acute hemorrhage, edema, or mass effect. Arnoldo Hurley MD Chest X-Ray 06/29/17 1511 Signed Impressions: Service Date/Time: Thursday, June 29, 2017 15:23 - CONCLUSION: Lungs are grossly clear. Clips and wires suggest CABG. Arnoldo Hurley MD Physical Exam HEENT: Normocephalic; atraumatic; no jaundice. NECK: Neck is supple CHEST: CTA CARDIAC: RRR with no murmur gallop or rubs. ABDOMEN: Soft, nondistended, nontender; bowel sounds are present EXTREMITIES: No clubbing, cyanosis, or edema. SKIN: Normal; no rash; no jaundice. RESTORATION ECOLOGIST: Awake and alert. (Arti Katz) Assessment and Plan Plan ASSESSMENT: - Dysphagia. Head CT (06/29/17)--Diffuse atrophy multiple old strokes. No evidence of acute hemorrhage, edema, or mass effect. Current symptoms with dysphagia most likely secondary to CVA. Palliative care following. NPO. - Cardiomyopathy, chronic systolic CHF, per attending - Atrial fibrillation, on Eliquis, per attending - COPD, per attending 07/01/17-- at bedside. Patient failed swallow evaluation. Family has not made decision regarding PEG tube placement at this time. Patient states that he wants him and his son to make that decision together. Procedure is high risk secondary to patient's condition. PLAN: - Keep NPO - IV hydration - Palliative care - Consider PEG placement. Son is POA. Family has not made decision at this time. - Monitor labs - Supportive care - Further recommendations to follow based on results of above Patient seen and examined by Dr. Watters and myself and this note is written on his behalf. (Arti Katz) Plan patient was seen and examined, agree with above note, patient seems to be little bit better today, I had a discussion with and she deferred the decision as far as the PICC tube to his son, if they decided to have the procedure done this can be done tomorrow (Carlita Watters MD) Arti Katz Jul 01, 2017 15:38 Carlita Watters MD Jul 01, 2017 17:51
[2017-07-01 20:45] LABS: APTT (PATIENT) 33.1 SEC (24.3-30.1); INTERNATIONAL NORMALIZED RATIO 1.2 RATIO
[2017-07-02] VITALS (7 sets, daily range): BP systolic 105–135; BP diastolic 71–87; PULSE 70–96; RESP 20–22; TEMP 96.3–97.6; O2SAT 93–98
[2017-07-02] MEDS: cefTRIAXone INJ 1,000 MG in SODIUM CHLORIDE 0.9% INJ 100 ML IV SCH (06:14)
[2017-07-02] MEDS: DOCUSATE SODIUM 50 MG/SENNA 8.6 MG TAB PO SCH (09:00)
[2017-07-02] MEDS: ASPIRIN EC 81 MG TABEC PO SCH (09:00)
[2017-07-02] MEDS: APIXABAN 5 MG TABLET PO SCH (09:00)
[2017-07-02] MEDS: FUROSEMIDE 20 MG TAB PO SCH (09:00)
[2017-07-02] MEDS: SODIUM CHLORIDE 0.9% FLUSH 10 ML FLUSH IV FLUSH SCH ×2 (09:00→21:08)
[2017-07-02] MEDS: ATORVASTATIN 40 MG TAB PO SCH (09:00)
--- NOTE | 2017-07-02 09:52 | HHI.PR ---
Subjective Remarks Patient complains of dry mucous membranes and states it makes it harder for him to talk. He denies dyspnea or pain. Objective Vitals Vital Signs Date Time Temp Pulse Resp B/P (MAP) Pulse Ox O2 Delivery O2 Flow Rate FiO2 07/02/17 08:00 96.8 96 20 105/73 (84) 93 07/02/17 04:50 22 07/02/17 00:00 97.6 70 22 115/80 (92) 98 07/01/17 21:12 98 21 07/01/17 20:00 97.0 70 20 115/71 (86) 95 07/01/17 16:00 97.6 67 22 114/73 (87) 95 07/01/17 12:00 97.7 70 22 97/66 (76) 95 07/01/17 11:47 92 21 I/O 07/01/17 07/01/17 07/01/17 07/02/17 07/02/17 07/02/17 07:00 15:00 23:00 07:00 15:00 23:00 Intake Total 900 ml 100 ml 775 ml 975 ml Output Total 100 ml 200 ml 300 ml Balance 800 ml 100 ml 575 ml 675 ml Intake Oral 0 ml IV Total 900 ml 100 ml 775 ml 975 ml Output Urine Total 100 ml 200 ml 300 ml # Voids 2 # Bowel Movements 0 0 0 Result Diagram: 06/30/17 0455 07/01/17 0458 Objective Remarks GENERAL: Frail, cachectic appearing elderly male patient. SKIN: Warm and dry. HEAD: Normocephalic. EYES: No scleral icterus. No injection or drainage. Oropharynx: Mouth is dry with thick mucus. NECK: Supple, trachea midline. No JVD or lymphadenopathy. CARDIOVASCULAR: Regular rate and rhythm without murmurs, gallops, or rubs. RESPIRATORY: Breath sounds equal bilaterally. No accessory muscle use. GASTROINTESTINAL: Abdomen soft, non-tender, nondistended. EXTREMITIES: No cyanosis, or edema. NEUROLOGICAL: Awake, alert, oriented to self, place. Speech wnl. MAEW. A/P Assessment and Plan -Dysphagia - patient has dry mucous membranes, appears to have poor control of oropharyngeal muscles. He failed speech therapy modified barium swallow. Dysphagia likely related to old stroke; he was treated with vital stim in the past. Head CT showed diffuse atrophy and multiple strokes; unable to have brain MRI secondary to pacemaker. Palliative care is following the patient. Patient currently nothing by mouth. continue gentle IVF. ST eval pending today. Patient has elected to have PEG tube today. -Acute kidney injury - resolved. -Previous CVA with right sided weakness. -UTI. Continue Rocephin. -Cardiomyopathy, chronic systolic CHF, permanent pacemaker - left ventricular ejection fraction of 20% as per echocardiogram last month. He was hospitalized for acute CHF several days ago. At this time appears fluid compensated. However monitor for overload as he is on IV fluids. -A. fib-on Eliquis, held now due to NPO status. -COPD - without exacerbation. -DVT prophylaxis with Lovenox. Norma Tomas MD Jul 02, 2017 09:52
[2017-07-02] MEDS: ceFAZolin 2 GM PREMIX 50 ML IV SCH ×2 (10:50→12:19)
[2017-07-02] MEDS ORDERED: PROPOFOL 200 MG/20 ML AMP IV ONE (11:18)
--- NOTE | 2017-07-02 11:28 | PD.PROCEDR ---
GI Procedure REFERRING PHYSICIAN SAMANTHA PROCEDURE PERFORMED EGD with PEG placement INDICATION FOR PROCEDURE Dysphagia and failed swallowing study PROCEDURE: The procedure, risks and benefits were discussed with Mr. Nguyen and informed consent was obtained. Anesthesia sedated him with Diprivan. He was placed in the left lateral decubitus position. EGD: The Pentax videoscope was introduced through the oropharynx and advanced to the second portion of the duodenum under direct visualization. Retroflexion was performed in the stomach. FINDINGS: Esophagus this was normal Stomach there was a small hiatal hernia otherwise the gastric mucosa was unremarkable Duodenum this was normal Following the evaluation of the stomach and the duodenum the stomach was insufflated with air and the area of PEG placement was identified through indentation and transillumination the area was prepped and draped in usual fashion 5 cc of lidocaine were injected locally a small incision was made then an Angiocath was passed into the stomach through which a guidewire was passed this was retrieved with the scope into that a PEG tube was attached and pulled into place and thereafter secured in usual fashion The patient tolerated procedure well and there are no immediate complications ESTIMATED BLOOD LOSS: None SPECIMENS REMOVED: None COMPLICATIONS: None IMPRESSION: Small hiatal hernia Successful PEG placement PLAN: 1. May use PEG tube for medications today 2. May start feeding tomorrow 3. May obtain nutritional consult for tube feeding 4. Flush tube with 50 cc of water every 4-6 hours 5. Always flush tube after feedings 6. Apply abdominal binder as necessary 7. Clamp G-tube after use and flush. Tenzin Smith MD Jul 02, 2017 11:28
[2017-07-02] MEDS: DEXT 5%-NACL 0.9% 1000 ML INJ 1,000 ML IV SCH (12:32)
[2017-07-02] MEDS ORDERED: TEMAZEPAM 15 MG CAP G-TUBE PRN (14:30)
[2017-07-02] MEDS: APIXABAN 5 MG TABLET G-TUBE SCH (21:19)
[2017-07-02] MEDS: DOCUSATE SODIUM 50 MG/SENNA 8.6 MG TAB G-TUBE SCH (21:19)
[2017-07-03] VITALS (12 sets, daily range): BP systolic 74–140; BP diastolic 38–87; PULSE 68–73; RESP 15–22; TEMP 95.9–97.3; O2SAT 92–99
[2017-07-03] MEDS: DEXT 5%-NACL 0.9% 1000 ML INJ 1,000 ML IV SCH ×2 (04:09→04:12)
[2017-07-03] MEDS: cefTRIAXone INJ 1,000 MG in SODIUM CHLORIDE 0.9% INJ 100 ML IV SCH (05:06)
[2017-07-03] MEDS: ASPIRIN 81 MG CHEW TAB G-TUBE SCH (09:31)
[2017-07-03] MEDS: FUROSEMIDE 20 MG TAB G-TUBE SCH (09:31)
[2017-07-03] MEDS: APIXABAN 5 MG TABLET G-TUBE SCH ×2 (09:31→21:07)
[2017-07-03] MEDS: ATORVASTATIN 40 MG TAB G-TUBE SCH (09:32)
[2017-07-03] MEDS: SODIUM CHLORIDE 0.9% FLUSH 10 ML FLUSH IV FLUSH SCH ×2 (09:32→19:39)
[2017-07-03] MEDS: DOCUSATE SODIUM 50 MG/SENNA 8.6 MG TAB G-TUBE SCH ×2 (09:32→21:07)
[2017-07-03] MEDS ORDERED: TAMSULOSIN HCL 0.4 MG CAP PO SCH (10:00)
[2017-07-03] MEDS ORDERED: TERAZOSIN HCL 5 MG CAP G-TUBE SCH (10:00)
[2017-07-03 11:01] LABS: BICARBONATE 21.5 MEQ/L (21.0-32.0); POTASSIUM 3.5 MEQ/L (3.5-5.1)
--- NOTE | 2017-07-03 11:52 | RADRPT ---
EXAM DATE/TIME: 06/30/2017 00:00 [place] COMPARISON: No previous studies available for comparison. INDICATIONS : Dysphagia. FLUORO TIME: 3.5 minutes IMAGE COUNT: 0 CONTRAST: Dose as prescribed by speech pathologist. MEDICAL HISTORY : Myocardial infarction. Congestive heart failure. Aneurysm, abdominal. CVA. Hypercholesterolemia. Ches t pain. Afib. HTN. COPD. Sleep apnea. Dyspnea. Arthritis. SURGICAL HISTORY : Pacemaker. CABG. Abdominal aortic aneurysm repair.Cardiac cath. Umbilical and right inguinal hernia repairs ENCOUNTER: Initial ACUITY: >1 year PAIN SCORE: 0/10 LOCATION: Esophagus. FINDINGS: A modified barium swallow was performed with speech pathology. Patient was given a variety of liquids to swallow. There is limited visualization of the proximal trachea and esophagus due to patient posi tioning. Several episodes of aspiration into the anterior trachea was observed. For a full detailed report, see report by the speech pathologist. CONCLUSION: Aspiration is observed. Shay Elliott MD on July 03, 2017 at 11:49 Board Certified Radiologist. This report was verified electronically.
--- NOTE | 2017-07-03 12:08 | HHI.GIFU ---
Subjective Remarks Patient laying in bed denies any abdominal pain but looking very weak and tired Objective Vitals I&O Vital Signs Date Time Temp Pulse Resp B/P (MAP) Pulse Ox O2 Delivery O2 Flow Rate FiO2 07/03/17 08:37 96.8 69 18 121/80 (94) 99 07/03/17 08:00 98 21 07/03/17 04:00 22 96 07/03/17 00:00 96.7 68 20 140/87 (104) 98 07/02/17 21:21 96 Nasal Cannula 2.50 07/02/17 20:00 96.3 71 20 123/72 (89) 96 07/02/17 20:00 96 Nasal Cannula 2.00 07/02/17 16:00 96.9 70 20 133/87 (102) 97 I/O 07/02/17 07/02/17 07/02/17 07/03/17 07/03/17 07/03/17 07:00 15:00 23:00 07:00 15:00 23:00 Intake Total 975 ml 575 ml 420 ml 812 ml 182 ml Output Total 300 ml 410 ml 250 ml Balance 675 ml 575 ml 10 ml 562 ml 182 ml Intake Oral 0 ml IV Total 975 ml 275 ml 300 ml 692 ml 182 ml Other 300 ml 120 ml 120 ml Output Urine Total 300 ml 410 ml 250 ml # Voids 2 # Bowel Movements 0 0 Laboratory Laboratory Tests Test 07/03/17 09:40 Blood Urea Nitrogen 22 Creatinine 0.68 Random Glucose 99 Calcium Level 9.2 Sodium Level 151 Potassium Level 3.5 Chloride Level 122 Carbon Dioxide Level 21.5 Anion Gap 8 Estimat Glomerular Filtration Rate 110 Date/Time Source Procedure Growth Status 06/29/17 19:45 Urine Clean Catch Urine Culture - Final Proteus Mirabilis Complete Imaging Last Impressions Modified Barium Swallow 06/30/17 0000 Signed Impressions: Service Date/Time: Friday, June 30, 2017 00:00 - CONCLUSION: Aspiration is observed. Shay Elliott MD Head CT 06/29/171510 Signed Impressions: Service Date/Time: Thursday, June 29, 2017 15:49 - CONCLUSION: Diffuse atrophy multiple old strokes. No evidence of acute hemorrhage, edema, or mass effect. Arnoldo Hurley MD Chest X-Ray 06/29/171510 Signed Impressions: Service Date/Time: Thursday, June 29, 2017 15:23 - CONCLUSION: Lungs are grossly clear. Clips and wires suggest CABG. Arnoldo Hurley MD Physical Exam HEENT: Normocephalic; atraumatic; no jaundice. NECK: Neck is supple CHEST: CTA CARDIAC: RRR with no murmur gallop or rubs. ABDOMEN: Soft, nondistended, nontender; bowel sounds are present PEG tube in place site free of any infection EXTREMITIES: No clubbing, cyanosis, or edema. SKIN: Normal; no rash; no jaundice. MARKET RESEARCH INTERN: Awake and alert. Assessment and Plan Plan patient was seen and examined, agree with above note, patient seems to be little bit better today, I had a discussion with and she deferred the decision as far as the PICC tube to his son, if they decided to have the procedure done this can be done tomorrow Successful PEG placement yesterday patient tolerating tube feeds Not much to add from a GI perspective at this point in time we will sign off Tenzin Smith MD Jul 03, 2017 12:08
--- NOTE | 2017-07-03 12:29 | HHI.PR ---
Subjective Remarks The patient had urinary retention yesterday which she states is been an intermittent problem for him in the past requiring Gaffney. Gaffney catheter was placed. Patient underwent PEG tube placement yesterday and has been started on tube feeds this morning. The patient denies any pain or dyspnea. Nurses noted thick and tenacious oral secretions. Trial of discontinuing the Gaffney was ordered this morning and I gave him a dose of Hytrin however the patient then developed hypotension. We will bolus 500 mL normal saline. Objective Vitals Vital Signs Date Time Temp Pulse Resp B/P (MAP) Pulse Ox O2 Delivery O2 Flow Rate FiO2 07/03/17 08:37 96.8 69 18 121/80 (94) 99 07/03/17 08:00 98 21 07/03/17 04:00 22 96 07/03/17 00:00 96.7 68 20 140/87 (104) 98 07/02/17 21:21 96 Nasal Cannula 2.50 07/02/17 20:00 96.3 71 20 123/72 (89) 96 07/02/17 20:00 96 Nasal Cannula 2.00 07/02/17 16:00 96.9 70 20 133/87 (102) 97 I/O 07/02/17 07/02/17 07/02/17 07/03/17 07/03/17 07/03/17 07:00 15:00 23:00 07:00 15:00 23:00 Intake Total 975 ml 575 ml 420 ml 812 ml 182 ml Output Total 300 ml 410 ml 250 ml Balance 675 ml 575 ml 10 ml 562 ml 182 ml Intake Oral 0 ml IV Total 975 ml 275 ml 300 ml 692 ml 182 ml Other 300 ml 120 ml 120 ml Output Urine Total 300 ml 410 ml 250 ml # Voids 2 # Bowel Movements 0 0 Result Diagram: 06/30/17 0455 07/03/17 0940 Objective Remarks GENERAL: Frail, cachectic appearing elderly male patient. SKIN: Warm and dry. HEAD: Normocephalic. EYES: No scleral icterus. No injection or drainage. Oropharynx: Mouth is dry with thick mucus, which is tenacious and adheres to the roof of the mouth, this was removed with Q-tip. NECK: Supple, trachea midline. No JVD or lymphadenopathy. CARDIOVASCULAR: Regular rate and rhythm without murmurs, gallops, or rubs. RESPIRATORY: Breath sounds equal bilaterally. No accessory muscle use. GASTROINTESTINAL: Abdomen soft, non-tender, nondistended. EXTREMITIES: No cyanosis, or edema. NEUROLOGICAL: Awake, alert, oriented to self, place. Speech wnl. MAEW. A/P Problem List: (1) Urinary retention ICD Code: R33.9 - Retention of urine, unspecified Status: Acute (2) Hypotension ICD Code: I95.9 - Hypotension, unspecified Status: Acute (3) UTI (urinary tract infection) ICD Code: N39.0 - Urinary tract infection, site not specified Status: Acute (4) Dysphagia ICD Code: R13.10 - Dysphagia, unspecified Status: Chronic (5) CHF (congestive heart failure) ICD Code: I50.9 - Heart failure, unspecified Status: Acute (6) Atrial fibrillation ICD Code: I48.91 - Unspecified atrial fibrillation Status: Chronic (7) Cardiomyopathy ICD Code: I42.9 - Cardiomyopathy, unspecified Status: Chronic (8) History of stroke ICD Code: Z86.73 - Personal history of transient ischemic attack (TIA), and cerebral infarction without residual deficits Status: Chronic Assessment and Plan -Dysphagia - patient has dry mucous membranes, appears to have poor control of oropharyngeal muscles. He failed speech therapy modified barium swallow. Dysphagia likely related to old stroke; he was treated with vital stim in the past. Head CT showed diffuse atrophy and multiple strokes; unable to have brain MRI secondary to pacemaker. Status post pacemaker on 07/02. Tube feeds have been initiated vital 1.5 with goal of 55 MLS per hour. Free water flushes 200 MLS every 8 hours. -Hyponatremia, hypovolemic. Will treat with D5 at 75 miles per hour, repeat BMP in the morning. -Acute urinary retention. Has been a problem for the patient in the past. Gaffney was placed yesterday. Trial discontinuing Gaffney this morning after receiving Hytrin. -Hypotension after receiving Hytrin. Now improved with 500 mL fluid bolus. Continue IV fluids. DC Hytrin. -Acute kidney injury - resolved. -Previous CVA with right sided weakness. -UTI, Proteus mirabilis. Status post 5 days of Rocephin, will change to Cipro. -Cardiomyopathy, chronic systolic CHF, CAD, permanent pacemaker - left ventricular ejection fraction of 20% as per echocardiogram last month. He was hospitalized for acute CHF several days ago. At this time appears fluid compensated. However monitor for overload as he is on IV fluids. -A. fib-heart rate controlled. Continue Eliquis. -Moderate Malnutrition - started on tube feeds. -COPD - without exacerbation. -DVT prophylaxis with Lovenox. [facility] when stable for discharge. Problem Qualifiers (1) Hypotension: Qualified Codes: I95.2 - Hypotension due to drugs (2) CHF (congestive heart failure): Qualified Codes: I50.22 - Chronic systolic (congestive) heart failure Norma Tomas MD Jul 03, 2017 12:29
[2017-07-03] MEDS ORDERED: SODIUM CHLORID 0.9% 500 ML INJ 500 ML IV ONE (13:30)
[2017-07-03] MEDS: FREE WATER G-TUBE SCH ×2 (14:00→21:07)
[2017-07-03] MEDS: DEXTROSE 5% IN WATE 1000ML INJ 1,000 ML IV SCH (15:18)
[2017-07-03] MEDS: CIPROFLOXACIN 500 MG TAB G-TUBE SCH (21:07)
[2017-07-04] VITALS (9 sets, daily range): BP systolic 84–108; BP diastolic 51–69; PULSE 62–74; RESP 16–22; TEMP 96–98.6; O2SAT 96–99
[2017-07-04] MEDS: DEXTROSE 5% IN WATE 1000ML INJ 1,000 ML IV SCH ×2 (03:34→12:08)
[2017-07-04] MEDS: FREE WATER G-TUBE SCH ×3 (05:17→16:32)
[2017-07-04 06:44] LABS: BICARBONATE 21.2 MEQ/L (21.0-32.0)
[2017-07-04 07:00] LABS: POTASSIUM 2.9 MEQ/L (3.5-5.1)
[2017-07-04] MEDS: POTASSIUM CHLOR 20 MEQ PREMIX 100 ML IV SCH ×2 (08:01→10:00)
[2017-07-04] MEDS: FUROSEMIDE 20 MG TAB G-TUBE SCH (08:01)
[2017-07-04] MEDS: DOCUSATE SODIUM 50 MG/SENNA 8.6 MG TAB G-TUBE SCH ×2 (08:01→20:41)
[2017-07-04] MEDS: ATORVASTATIN 40 MG TAB G-TUBE SCH (08:03)
[2017-07-04] MEDS: CIPROFLOXACIN 500 MG TAB G-TUBE SCH ×2 (08:03→20:41)
[2017-07-04] MEDS: APIXABAN 5 MG TABLET G-TUBE SCH ×2 (08:03→20:41)
[2017-07-04] MEDS: ASPIRIN 81 MG CHEW TAB G-TUBE SCH (08:03)
[2017-07-04] MEDS: SODIUM CHLORIDE 0.9% FLUSH 10 ML FLUSH IV FLUSH SCH ×2 (09:00→20:42)
--- NOTE | 2017-07-04 11:14 | HHI.PR ---
Subjective Remarks Patient c/o feeling tired, dyspnea at baseline. Objective Vitals Vital Signs Date Time Temp Pulse Resp B/P (MAP) Pulse Ox O2 Delivery O2 Flow Rate FiO2 07/04/17 08:00 Nasal Cannula 2.00 07/04/17 08:00 96.8 65 20 98/67 (77) 99 07/04/17 04:00 98.6 70 16 86/51 (63) 97 07/04/17 00:00 96.5 71 20 84/56 (65) 99 07/03/17 23:00 71 07/03/17 20:20 95 Nasal Cannula 2.00 07/03/17 20:00 95.9 70 21 89/56 (67) 99 07/03/17 19:00 99 Nasal Cannula 2.00 07/03/17 18:35 69 07/03/17 17:00 97.3 73 22 112/70 (84) 95 07/03/17 12:58 100/68 (79) 07/03/17 12:50 96.7 70 15 74/38 (50) 92 07/03/17 12:10 70 07/03/17 11:50 96 Nasal Cannula 2.00 I/O 07/03/17 07/03/17 07/03/17 07/04/17 07/04/17 07/04/17 07:00 15:00 23:00 07:00 15:00 23:00 Intake Total 812 ml 182 ml 1411 ml 0 ml Output Total 250 ml 200 ml 150 ml Balance 562 ml 182 ml 1211 ml -150 ml Intake Oral 0 ml IV Total 692 ml 182 ml 774 ml Tube Feeding 97 ml Other 120 ml 540 ml Output Urine Total 250 ml 200 ml 150 ml Bladder Scan Volume Amount 388 ml # Bowel Movements 0 Result Diagram: 06/30/17 0455 07/04/17 0450 Objective Remarks GENERAL: Frail, cachectic appearing elderly male patient. SKIN: Warm and dry. HEAD: Normocephalic. EYES: No scleral icterus. No injection or drainage. NECK: Supple, trachea midline. No JVD or lymphadenopathy. CARDIOVASCULAR: Regular rate and rhythm without murmurs, gallops, or rubs. RESPIRATORY: Breath sounds equal bilaterally. No accessory muscle use. GASTROINTESTINAL: Abdomen soft, non-tender, nondistended. EXTREMITIES: No cyanosis, or edema. NEUROLOGICAL: Awake, alert, oriented to self, place. Speech wnl. MAEW. A/P Problem List: (1) Urinary retention ICD Code: R33.9 - Retention of urine, unspecified Status: Acute (2) Hypotension ICD Code: I95.9 - Hypotension, unspecified Status: Acute (3) UTI (urinary tract infection) ICD Code: N39.0 - Urinary tract infection, site not specified Status: Acute (4) Dysphagia ICD Code: R13.10 - Dysphagia, unspecified Status: Chronic (5) CHF (congestive heart failure) ICD Code: I50.9 - Heart failure, unspecified Status: Acute (6) Atrial fibrillation ICD Code: I48.91 - Unspecified atrial fibrillation Status: Chronic (7) Cardiomyopathy ICD Code: I42.9 - Cardiomyopathy, unspecified Status: Chronic (8) History of stroke ICD Code: Z86.73 - Personal history of transient ischemic attack (TIA), and cerebral infarction without residual deficits Status: Chronic Assessment and Plan -Dysphagia - patient has dry mucous membranes, appears to have poor control of oropharyngeal muscles. He failed speech therapy modified barium swallow. Dysphagia likely related to old stroke; he was treated with vital stim in the past. Head CT showed diffuse atrophy and multiple strokes; unable to have brain MRI secondary to pacemaker. Palliative care was consulted; patient and family elected to place PEG. Status post PEG tube on 07/02. Tube feeds have been initiated vital 1.5 with goal of 55 MLS per hour. -Hypernatremia, hypovolemic. improved. cont D5 at 75 miles per hour, increase free water flushes 200 MLS every 6 hours. repeat BMP in the morning. -hypokalemia - replete, check mag. - urinary retention. Has been a problem for the patient in the past. failed trial of DC escudero. continue escudero. f/u with urology outpatient. -Hypotension after receiving Hytrin. BP tends to run low. Continue IV fluids, monitor for overload. DC Hytrin. -Acute kidney injury - resolved. -Previous CVA with right sided weakness. -UTI, Proteus mirabilis. Status post 5 days of Rocephin, cont Cipro. -Cardiomyopathy, chronic systolic CHF, CAD, permanent pacemaker - left ventricular ejection fraction of 20% as per echocardiogram last month. He was hospitalized for acute CHF several days ago. At this time appears fluid compensated. However monitor for overload as he is on IV fluids. -A. fib-heart rate controlled. Continue Eliquis. -Moderate Malnutrition - started on tube feeds. -COPD - without exacerbation. -DVT prophylaxis with Lovenox. Discharge Planning nursing home facility when stable for discharge. Problem Qualifiers (1) Hypotension: Qualified Codes: I95.2 - Hypotension due to drugs (2) CHF (congestive heart failure): Qualified Codes: I50.22 - Chronic systolic (congestive) heart failure Norma Tomas MD Jul 04, 2017 11:14
--- NOTE | 2017-07-04 11:44 | PQ ---
Physician Query Response Document PATIENT: DELFINA MAYEN : 1930 ADMIT DATE: 06/29/2017 4:29 PM DISCH DATE: RESPONDING PROVIDER #: [email or web address] QUERY TEXT: Malnutrition Severity Malnutrition is documented in the Medical Record. Please specify the severity Such as: -- Mild ? first degree -- Moderate ? second degree -- Severe ? third degree -- Severe malnutrition with marasmus -- Other, please specify The patient's Clinical Indicators include: BMI < 19 CACHECTIC Protein calorie malnutrition had no PO intake 2/ dysphagia: cachectic male, with muscle waisting bi temporal waisting Query created by: Hodan Garg on 07/03/2017 12:37 PM RESPONSE TEXT: Provider disagreed with this CDI query. Electronically signed by: Norma Tomas MD 07/04/2017 11:41 AM
[2017-07-04 16:01] LABS: BICARBONATE 22.1 MEQ/L (21.0-32.0); MAGNESIUM 2.2 MG/DL (1.5-2.5); POTASSIUM 3.6 MEQ/L (3.5-5.1)
[2017-07-05] VITALS (9 sets, daily range): BP systolic 98–115; BP diastolic 56–68; PULSE 69–76; RESP 16–20; TEMP 95.9–97.4; O2SAT 94–100
[2017-07-05] MEDS: DEXTROSE 5% IN WATE 1000ML INJ 1,000 ML IV SCH (05:59)
[2017-07-05] MEDS: FREE WATER G-TUBE SCH ×4 (06:00→17:15)
[2017-07-05] MEDS: SODIUM CHLORIDE 0.9% FLUSH 10 ML FLUSH IV FLUSH SCH ×2 (09:00→21:00)
[2017-07-05 09:04] LABS: POTASSIUM 3.4 MEQ/L (3.5-5.1)
[2017-07-05] MEDS: DOCUSATE SODIUM 50 MG/SENNA 8.6 MG TAB G-TUBE SCH ×2 (10:20→22:42)
[2017-07-05] MEDS: CIPROFLOXACIN 500 MG TAB G-TUBE SCH ×2 (10:21→22:41)
[2017-07-05] MEDS: APIXABAN 5 MG TABLET G-TUBE SCH ×2 (10:21→22:41)
[2017-07-05] MEDS: ATORVASTATIN 40 MG TAB G-TUBE SCH (10:21)
[2017-07-05] MEDS: ASPIRIN 81 MG CHEW TAB G-TUBE SCH (10:21)
[2017-07-05] MEDS ORDERED: POTASSIUM CHLORIDE 25 MEQ EFFERVESCENT TAB PEG ONE (10:30)
--- NOTE | 2017-07-05 11:01 | HHI.PR ---
Subjective Remarks Patient denies dyspnea or pain. He states he feels "all right." Objective Vitals Vital Signs Date Time Temp Pulse Resp B/P (MAP) Pulse Ox O2 Delivery O2 Flow Rate FiO2 07/05/17 09:08 96.9 70 18 98/58 (71) 100 07/05/17 04:00 95.9 70 18 101/65 (77) 96 07/05/17 00:00 96.3 69 18 104/68 (80) 95 07/04/17 20:45 98 Nasal Cannula 2.00 07/04/17 20:00 74 07/04/17 20:00 96.0 69 18 108/69 (82) 98 07/04/17 19:00 98 Nasal Cannula 2.00 07/04/17 16:00 97.4 73 22 100/62 (75) 96 07/04/17 15:00 74 07/04/17 12:00 96.7 62 20 99/55 (70) 99 I/O 07/04/17 07/04/17 07/04/17 07/05/17 07/05/17 07/05/17 07:00 15:00 23:00 07:00 15:00 23:00 Intake Total 0 ml 0 ml 1010 ml 820 ml Output Total 150 ml 775 ml 300 ml Balance -150 ml -775 ml 1010 ml 520 ml Intake Oral 0 ml 0 ml 30 ml 0 ml IV Total 750 ml Tube Feeding 30 ml 420 ml Other 200 ml 400 ml Output Urine Total 150 ml 775 ml 300 ml # Bowel Movements 0 0 Result Diagram: 07/05/17 0809 Objective Remarks GENERAL: Frail, cachectic appearing elderly male patient. SKIN: Warm and dry. HEAD: Normocephalic. EYES: No scleral icterus. No injection or drainage. NECK: Supple, trachea midline. No JVD or lymphadenopathy. CARDIOVASCULAR: Regular rate and rhythm without murmurs, gallops, or rubs. RESPIRATORY: Breath sounds equal bilaterally. No accessory muscle use. GASTROINTESTINAL: Abdomen soft, non-tender, nondistended. EXTREMITIES: No cyanosis, or edema. NEUROLOGICAL: Awake, alert, oriented to self, place. Speech wnl. MAEW. A/P Problem List: (1) Urinary retention ICD Code: R33.9 - Retention of urine, unspecified Status: Acute (2) Hypotension ICD Code: I95.9 - Hypotension, unspecified Status: Acute (3) UTI (urinary tract infection) ICD Code: N39.0 - Urinary tract infection, site not specified Status: Acute (4) Dysphagia ICD Code: R13.10 - Dysphagia, unspecified Status: Chronic (5) CHF (congestive heart failure) ICD Code: I50.9 - Heart failure, unspecified Status: Acute (6) Atrial fibrillation ICD Code: I48.91 - Unspecified atrial fibrillation Status: Chronic (7) Cardiomyopathy ICD Code: I42.9 - Cardiomyopathy, unspecified Status: Chronic (8) History of stroke ICD Code: Z86.73 - Personal history of transient ischemic attack (TIA), and cerebral infarction without residual deficits Status: Chronic (9) Hypokalemia ICD Code: E87.6 - Hypokalemia (10) Hypernatremia ICD Code: E87.0 - Hyperosmolality and hypernatremia Assessment and Plan -Dysphagia - He failed speech therapy modified barium swallow. Dysphagia likely related to old stroke; he was treated with vital stim in the past. Head CT showed diffuse atrophy and multiple strokes; unable to have brain MRI secondary to pacemaker. Palliative care was consulted; patient and family elected to place PEG. Status post PEG tube on 07/02. Tube feeds have been initiated vital 1.5 55 MLS per hour. -Hypernatremia, hypovolemic. improved. HLIV. continue free water flushes 200 MLS every 6 hours. repeat BMP in the morning. -hypokalemia - improved k 3.4, repeat BMP in a.m. 25 meq k-lyte to peg today. - urinary retention. Has been a problem for the patient in the past. failed trial of DC escudero. continue escudero. f/u with urology outpatient. -Hypotension after receiving Hytrin. BP tends to run low. -Acute kidney injury - resolved. -Previous CVA with right sided weakness. -UTI, Proteus mirabilis. Status post 5 days of Rocephin, cont Cipro. -Cardiomyopathy, chronic systolic CHF, CAD, permanent pacemaker - left ventricular ejection fraction of 20% as per echocardiogram last month. He was hospitalized for acute CHF 1 week prior. At this time appears fluid compensated. Holding lasix due to hypotension. -A. fib-heart rate controlled. Continue Eliquis. -Moderate Malnutrition - started on tube feeds. -COPD - without exacerbation. -DVT prophylaxis with Lovenox. Discharge Planning shelter facility when stable for discharge, possibly tomorrow. Problem Qualifiers (1) Hypotension: Qualified Codes: I95.2 - Hypotension due to drugs (2) CHF (congestive heart failure): Qualified Codes: I50.22 - Chronic systolic (congestive) heart failure Norma Tomas MD Jul 05, 2017 11:01
[2017-07-06] VITALS: BP 102/56; PULSE 69; RESP 20; TEMP 96.1; O2SAT 93
[2017-07-06] MEDS: FREE WATER G-TUBE SCH ×4 (05:59→18:00)
[2017-07-06 06:00] VITALS: BP 108/65; PULSE 67; RESP 18; TEMP 96.5; O2SAT 96
[2017-07-06 07:59] LABS: POTASSIUM 3.9 MEQ/L (3.5-5.1)
[2017-07-06 08:00] VITALS: BP 100/60; PULSE 73; RESP 22; TEMP 98.1; O2SAT 95; O2SAT 96
[2017-07-06 08:02] LABS: BICARBONATE 23.3 MEQ/L (21.0-32.0)
[2017-07-06] MEDS: APIXABAN 5 MG TABLET G-TUBE SCH (09:48)
[2017-07-06] MEDS: CIPROFLOXACIN 500 MG TAB G-TUBE SCH (09:48)
[2017-07-06] MEDS: ASPIRIN 81 MG CHEW TAB G-TUBE SCH (09:48)
[2017-07-06] MEDS: SODIUM CHLORIDE 0.9% FLUSH 10 ML FLUSH IV FLUSH SCH (09:49)
[2017-07-06] MEDS: ATORVASTATIN 40 MG TAB G-TUBE SCH (09:49)
[2017-07-06] MEDS: DOCUSATE SODIUM 50 MG/SENNA 8.6 MG TAB G-TUBE SCH (09:49)
[2017-07-06 12:00] VITALS: BP 109/66; PULSE 69; RESP 20; TEMP 98; O2SAT 97
[2017-07-06] MEDS ORDERED: ASPI81CH25 G-TUBE (13:40)
[2017-07-06] MEDS ORDERED: APIX5TAB G-TUBE (13:40)
[2017-07-06] MEDS ORDERED: WATE1INJ2 G-TUBE (13:40)
[2017-07-06] MEDS ORDERED: ROSU20 G-TUBE (13:40)
[2017-07-06] MEDS ORDERED: FURO20TA G-TUBE (13:40)
[2017-07-06] MEDS ORDERED: CIPR-9 G-TUBE (13:40)
--- NOTE | 2017-07-06 13:40 | HHI.DS ---
Discharge Summary Admission Date Jun 29, 2017 at 16:29 Discharge Date: Jul 06, 2017 Admitting Diagnosis Inability to swallow, dehydration (1) Urinary retention ICD Code: R33.9 - Retention of urine, unspecified Status: Acute (2) Hypotension ICD Code: I95.9 - Hypotension, unspecified Status: Acute (3) UTI (urinary tract infection) ICD Code: N39.0 - Urinary tract infection, site not specified Status: Acute (4) Dysphagia ICD Code: R13.10 - Dysphagia, unspecified Status: Chronic (5) CHF (congestive heart failure) ICD Code: I50.9 - Heart failure, unspecified Status: Acute (6) Atrial fibrillation ICD Code: I48.91 - Unspecified atrial fibrillation Status: Chronic (7) Cardiomyopathy ICD Code: I42.9 - Cardiomyopathy, unspecified Status: Chronic (8) History of stroke ICD Code: Z86.73 - Personal history of transient ischemic attack (TIA), and cerebral infarction without residual deficits Status: Chronic (9) Hypokalemia ICD Code: E87.6 - Hypokalemia (10) Hypernatremia ICD Code: E87.0 - Hyperosmolality and hypernatremia Procedures PEG tube on 07/02 Brief History - From Admission 86-year-old male with PMH of Afib on eliquis, arthritis, CAD, HLD, systolic CHF , previous CVA is brought from a residential because of trouble swallowing. He was admitted to this hospital on June 24. He was admitted for generalized weakness and CHF. He was discharged to [facility]. He was sent by ambulance because he was unable to swallow. The patient apparently has a history of a stroke and injuring his stroke he had trouble swallowing. The patient himself is unable to give much of a history. He states he tells me that he lives in a home with his . I have called the number we have for the and she has not answered the phone. He tells me that the date is April 24, 1913. He denies that he is having pain. He does have a history of bypass surgery and he has a pacemaker. He has atrial fibrillation and is on Eliquis. He has had a stroke in the past. He has an ejection fraction of only about 15%. When he was admitted to the hospital but apparently at the time of discharge she was walking with a walker. He apparently was unable to swallow at the residential when he was offered breakfast. CBC/BMP: 07/06/17 0742 Significant Findings Laboratory Tests Test 07/04/17 04:50 07/04/17 15:24 07/05/17 08:09 07/06/17 07:42 Blood Urea Nitrogen 20 MG/DL (7-18) Random Glucose 140 MG/DL (74-106) 109 MG/DL (74-106) 118 MG/DL (74-106) 114 MG/DL (74-106) Sodium Level 147 MEQ/L (136-145) Potassium Level 2.9 MEQ/L (3.5-5.1) 3.4 MEQ/L (3.5-5.1) Chloride Level 118 MEQ/L (98-107) 114 MEQ/L (98-107) 114 MEQ/L (98-107) 111 MEQ/L (98-107) Calcium Level 8.4 MG/DL (8.5-10.1) 8.3 MG/DL (8.5-10.1) Imaging Last Impressions Modified Barium Swallow 06/30/17 0000 Signed Impressions: Service Date/Time: Friday, June 30, 2017 00:00 - CONCLUSION: Aspiration is observed. Shay Elliott MD Head CT 06/29/17 1511 Signed Impressions: Service Date/Time: Thursday, June 29, 2017 15:49 - CONCLUSION: Diffuse atrophy multiple old strokes. No evidence of acute hemorrhage, edema, or mass effect. Arnoldo Hurley MD Chest X-Ray 06/29/17 1511 Signed Impressions: Service Date/Time: Thursday, June 29, 2017 15:23 - CONCLUSION: Lungs are grossly clear. Clips and wires suggest CABG. Arnoldo Hurley MD PE at Discharge GENERAL: Frail, cachectic appearing elderly male patient. SKIN: Warm and dry. HEAD: Normocephalic. EYES: No scleral icterus. No injection or drainage. NECK: Supple, trachea midline. No JVD or lymphadenopathy. CARDIOVASCULAR: Regular rate and rhythm without murmurs, gallops, or rubs. RESPIRATORY: Breath sounds equal bilaterally. No accessory muscle use. GASTROINTESTINAL: Abdomen soft, non-tender, nondistended. EXTREMITIES: No cyanosis, or edema. NEUROLOGICAL: Awake, alert, oriented to self, place. Speech wnl. MAEW. Pt update on day of discharge Patient denies pain or dyspnea. Hospital Course The patient was admitted. The patient failed the speech therapy modified barium swallow. Dysphagia was felt likely related to the old stroke. Head CT showed diffuse atrophy and multiple old strokes. Patient was unable to have brain MRI secondary to pacemaker status. The patient's mentation improved. Palliative care was consulted. The patient and family elected to have a PEG tube placed which was placed on July 02. The patient developed hypernatremia and was treated with IV fluids and free water flushes. He is on tube feeds with vital 1.5 and 55 mL per hour. He is also on free water flushes 200 mL every 6 hours. The patient additionally had urinary retention and a Gaffney catheter was placed. He failed a trial of discontinuing the Gaffney catheter. The patient additionally had a urinary tract infection with Proteus mirabilis and was treated with IV antibiotics. The patient's blood pressure continued to run low while he was hospitalized and his Lasix was held. His blood pressure is too low to tolerate beta neelam or ARSH inhibitor for the cardiomyopathy. Electrolytes were repleted. Patient at this time is stable and will be discharged to long term facility. I will resume him on Lasix 20 mg at night to be held if systolic blood pressure less than 100. He will need urology outpatient follow-up. Pt Condition on Discharge: Stable Discharge Disposition: Discharge to SNF Discharge Time: > 30 minutes Discharge Instructions DIET: Follow Instructions for: Nothing By Mouth, On Tube Feeding Activities you can perform: Regular-No Restrictions Follow up Referrals: Urology - 2 Weeks with Jordy Day DO New Medications: Apixaban (Eliquis) 5 Mg Tab 5 MG G-TUBE BID for prevent stroke, #60 TAB Aspirin (Aspirin Low Strength) 81 Mg Chew 81 MG G-TUBE DAILY for prevent [place], #30 EA Ciprofloxacin (Cipro) 500 Mg Tab 500 MG G-TUBE Q12HR for Infection, #4 TAB Water For Injection, Sterile (Sterile Water For Injecti) 1 Inj Inj 200 ML G-TUBE Q6HR for hydration for 30 Days, INJECTION Changed Medications: Furosemide (Furosemide) 20 Mg Tab 20 MG G-TUBE HS for Prevent Heart Failure, #30 TAB 0 Refills (Changed from: PO; DAILY) Hold if SBP<100 Rosuvastatin (Crestor) 20 Mg Tab 20 MG G-TUBE DAILY for Cholesterol Management, #30 TAB 0 Refills (Changed from: PO) Discontinued Medications: Apixaban (Eliquis) 5 Mg Tab 5 MG PO BID for Prevent Blood Clot, #[address] (Sigrid Aspirin EC Low Dose) 81 Mg Tabdr 81 MG PO DAILY Norma Tomas MD Jul 06, 2017 13:40
[2017-07-06 15:00] VITALS: PULSE 72
[2017-07-06 16:00] VITALS: BP 102/62; PULSE 70; RESP 20; TEMP 97.4; O2SAT 97
== END 2017-07-06 19:25 | DRG 683 ==
LOC: PHED 14:15 → PHEDA 16:29 → PH3A 17:57
PROVIDERS: ADMIT Hospitalist; ATTEND Hospitalist
PROC: 0T9B70Z Drainage of Bladder with Drainage Device, Via Natural or Artificial Opening (ICD-10-PCS; 2017-07-02)
PROC: 0DH68UZ Insertion of Feeding Device into Stomach, Via Natural or Artificial Opening Endoscopic (ICD-10-PCS; principal; 2017-07-02 10:59)
PROC: 0DJ08ZZ Inspection of Upper Intestinal Tract, Via Natural or Artificial Opening Endoscopic (ICD-10-PCS; 2017-07-02 10:59)
DX: N17.9 Acute kidney failure, unspecified (principal); R64 Cachexia; E44.0 Moderate protein-calorie malnutrition; E87.0 Hyperosmolality and hypernatremia; I11.0 Hypertensive heart disease with heart failure; I42.9 Cardiomyopathy, unspecified; I95.9 Hypotension, unspecified; I50.22 Chronic systolic (congestive) heart failure; I48.2 Chronic atrial fibrillation; E87.1 Hypo-osmolality and hyponatremia; I69.351 Hemiplegia and hemiparesis following cerebral infarction affecting right dominant side; N39.0 Urinary tract infection, site not specified; Z68.1 Body mass index [BMI] 19.9 or less, adult; I48.91 Unspecified atrial fibrillation; E86.0 Dehydration; J44.9 Chronic obstructive pulmonary disease, unspecified; I69.222 Dysarthria following other nontraumatic intracranial hemorrhage; I69.991 Dysphagia following unspecified cerebrovascular disease; E78.5 Hyperlipidemia, unspecified; I25.10 Atherosclerotic heart disease of native coronary artery without angina pectoris; I25.2 Old myocardial infarction; K21.9 Gastro-esophageal reflux disease without esophagitis; K44.9 Diaphragmatic hernia without obstruction or gangrene; G47.30 Sleep apnea, unspecified; B96.4 Proteus (mirabilis) (morganii) as the cause of diseases classified elsewhere; E87.6 Hypokalemia; Z79.01 Long term (current) use of anticoagulants; Z87.891 Personal history of nicotine dependence; Z95.0 Presence of cardiac pacemaker; Z95.1 Presence of aortocoronary bypass graft
CPT/HCPCS: 70450; 71010; 74230; 80048; 80053; 81001; 82948; 83735; 84443; 84484; 85025; 85610; 85730; 87077; 87086; 87186; 93005; 96360; J0690; J0696; J1650; J3480; J7030; J7040; J7042; J7070

== ENCOUNTER 2017-08-03 18:55 | Emergency (ER) | payer MEDICARE, OTHER ==
[~2017-08-03] VITALS: Ht 182.9 cm; Wt 45.0 kg
[~2017-08-03 18:55] MED LIST changes: +APIX5TAB G-TUBE; -APIX5TAB PO; -ASPI1TAB73 PO; +ASPI81CH25 G-TUBE; +CIPR-9 G-TUBE; +FURO20TA G-TUBE; -FURO20TA PO; +ROSU20 G-TUBE; -ROSU20 PO; +WATE1INJ2 G-TUBE
[2017-08-03] MEDS ORDERED: DIATRIZOATE MEGLUM/DIATRIZOATE SOD 120 ML BTL (for RAD DIAG) PEG ONE (18:56)
[2017-08-03 19:05] VITALS: BP 114/72; PULSE 70; RESP 16; TEMP 98.8; O2SAT 100
--- NOTE | 2017-08-03 19:15 | PD ---
HPI Chief Complaint: Purchasing Internship Problem Time Seen by Provider: 19:12 Travel History International Travel<30 days: No Contact w/Intl Traveler<30days: No Traveled to known affect area: No History of Present Illness HPI The patient is an 87 year old male who presents to the [facility] emergency department with a history of reportedly getting caught up on his oxygen tubing and accidentally holing out his PEG tube. The patient has PEG tube placed according to the record on July 02 related to a failed swallowing evaluation during an admission from June 29 through July 06. The patient reports that the tube was accidentally dislodged approximately 5 hours ago. The patient denies having any other acute complaints. On review of systems, the patient denies having any known recent fevers, cough, congestion, neck pain, chest pain , shortness of breath, abdominal pain, vomiting, diarrhea, urinary symptoms, or new neurologic symptoms. [facility] Past Medical History Narrative Medical The patient's past medical history is significant for atrial fibrillation, chronically anticoagulated on Eliquis, history of cerebrovascular accident with residual right-sided weakness, history of COPD, history of systolic congestive heart failure, coronary artery disease, hyperlipidemia, hypertension. Hx Anticoagulant Therapy: Yes Arthritis: No Asthma: No Heart Rhythm Problems: Yes (underlying afib) Cancer: No Cardiac Catheterization: Yes Cardiovascular Problems: Yes High Cholesterol: Yes Chest Pain: Yes Congestive Heart Failure: Yes COPD: Yes Cerebrovascular Accident: Yes (2010) Coronary Artery Disease: Yes Diminished Hearing: No Endocrine: No Gastrointestinal Disorders: Yes GERD: Yes Genitourinary: Yes Hiatal Hernia: Yes Hypertension: Yes Immune Disorder: No Kidney Stones: No Musculoskeletal: Yes Neurologic: Yes Psychiatric: No Reproductive: No Respiratory: Yes Immunizations Current: No Migraines: No Renal Failure: No Seizures: No Sleep Apnea: Yes Ulcer: No Influenza Vaccination: Yes Past Surgical History Narrative Surgical The patient's past surgical history is significant for umbilical hernia repair, right inguinal hernia repair, coronary artery bypass grafting, pacemaker placement, PEG tube placement. Abdominal Aneurysm Repair: Yes Abdominal Surgery: Yes (UMBILICAL; R INGUINAL HERNIA REPAIR) Cardiac Surgery: Yes (1979 CABG; aorta, pacemaker (2) most recently 2 months ago) Coronary Artery Bypass Graft: Yes Ear Surgery: No Endocrine Surgery: No Eye Surgery: No Genitourinary Surgery: No Gynecologic Surgery: No Oral Surgery: No Pacemaker: Yes Thoracic Surgery: No Other Surgery: Yes Social History Alcohol Use: Yes (OCCASSIONAL) Tobacco Use: No (QUIT ) Substance Use: No Allergies-Medications (Allergen,Severity, Reaction): Coded Allergies: No Known Allergies (Verified Adverse Reaction, Unknown, 08/03/17) Reported Meds & Prescriptions Reported Meds & Active Scripts Active Sterile Water For Injecti (Water For Injection, Sterile) 1 Inj Inj 200 Ml G- TUBE Q6HR 30 Days Aspirin Low Strength (Aspirin) 81 Mg Chew 81 Mg G-TUBE DAILY Eliquis (Apixaban) 5 Mg Tab 5 Mg G-TUBE BID Crestor (Rosuvastatin Calcium) 20 Mg Tab 20 Mg G-TUBE DAILY Reported Jevity 1.5 Syed (Nutritional Supplements) 0.06 Gram-1.5 Kcal/Ml Liq 70 Ml PEG DAILY Glycolax (Polyethylene Glycol 3350) 17 Gram/Dose Pow 17 Gm PEG HS Furosemide 20 Mg Tab 10 Mg PEG DAILY Review of Systems Except as stated in HPI: all other systems reviewed are Neg General / Constitutional: No: Fever Eyes: No: Visual changes HENT: No: Headaches Cardiovascular: No: Chest Pain or Discomfort Respiratory: No: Shortness of Breath Gastrointestinal: Positive: Other (dislodged feeding tube), No: Abdominal Pain Genitourinary: No: Dysuria Musculoskeletal: No: Pain Skin: No Rash Neurologic: No: Weakness Psychiatric: No: Depression Endocrine: No: Polydipsia Hematologic/Lymphatic: No: Easy Bruising Physical Exam Narrative General: The patient is a well-developed well-nourished male in no acute distress. Head and Neck exam: Head is normocephalic atraumatic. Eyes: EOMI, pupils are equal round and reactive to light. Nose: Midline septum with pink mucous membranes Mouth: Dentition unremarkable. Moist mucus membranes. Posterior oropharynx is not erythematous. No tonsillar hypertrophy. Uvula midline. Airway patent. Neck: No palpable lymphadenopathy. No nuchal rigidity. No thyromegaly. Cardiovascular: Regular rate and rhythm in the 70's without murmurs, gallops, or rubs. Lungs: Clear to auscultation bilaterally. No wheezes, rhonchi, or rales. Abdomen: Soft, without tenderness to palpation in all 4 quadrants of the abdomen. No guarding, rebound, or rigidity. Normal bowel sounds are audible. No tenderness on palpation of McBurney's point. On examination of the patient's abdomen, the patient has a left upper quadrant wound, crusted with blood, no stoma is able to be visualized. Extremities: No clubbing, cyanosis, or edema. 2+ pulses in all 4 extremities. No calf tenderness on palpation. Back: No spinous process tenderness to palpation. No costovertebral angle tenderness to palpation. Neurologic Exam: Grossly nonfocal. Skin Exam: No rash noted. Intact skin that is warm and dry. Data Data Last Documented VS Vital Signs Date Time Temp Pulse Resp B/P (MAP) Pulse Ox O2 Delivery O2 Flow Rate FiO2 08/03/17 19:05 98.8 70 16 114/72 (86) 100 Orders Orders Electrocardiogram (08/03/17 19:29) Complete Blood Count With Diff (08/03/17 19:29) Basic Metabolic Panel (Bmp) (08/03/17 19:29) Prothrombin Time / Inr (Pt) (08/03/17 19:29) Act Partial Throm Time (Ptt) (08/03/17 19:29) Iv Access Insert/Monitor (08/03/17 19:29) Ecg Monitoring (08/03/17 19:29) Oximetry (08/03/17 19:29) Abdomen, Single View (08/03/17 ) Diatrizoate Liq ( Gastroview Liq) (08/03/17 18:56) Ed Discharge Order (08/03/17 21:06) Labs Laboratory Tests Test 08/03/17 19:45 White Blood Count 8.9 TH/MM3 Red Blood Count 3.99 MIL/MM3 Hemoglobin 12.0 GM/DL Hematocrit 35.7 % Mean Corpuscular Volume 89.4 FL Mean Corpuscular Hemoglobin 30.1 PG Mean Corpuscular Hemoglobin Concent 33.7 % Red Cell Distribution Width 16.3 % Platelet Count 212 TH/MM3 Mean Platelet Volume 8.2 FL Neutrophils (%) (Auto) 77.0 % Lymphocytes (%) (Auto) 13.0 % Monocytes (%) (Auto) 7.4 % Eosinophils (%) (Auto) 1.9 % Basophils (%) (Auto) 0.7 % Neutrophils # (Auto) 6.8 TH/MM3 Lymphocytes # (Auto) 1.2 TH/MM3 Monocytes # (Auto) 0.7 TH/MM3 Eosinophils # (Auto) 0.2 TH/MM3 Basophils # (Auto) 0.1 TH/MM3 CBC Comment DIFF FINAL Differential Comment Prothrombin Time 12.1 SEC Prothromb Time International Ratio 1.1 RATIO Activated Partial Thromboplast Time 30.3 SEC Blood Urea Nitrogen 25 MG/DL Creatinine 0.78 MG/DL Random Glucose 85 MG/DL Calcium Level 9.7 MG/DL Sodium Level 139 MEQ/L Potassium Level 4.8 MEQ/L Chloride Level 106 MEQ/L Carbon Dioxide Level 25.2 MEQ/L Anion Gap 8 MEQ/L Estimat Glomerular Filtration Rate 94 ML/MIN MDM Medical Decision Making Medical Screen Exam Complete: Yes Emergency Medical Condition: Yes Medical Record Reviewed: Yes Differential Diagnosis PEG tube dislodgment, versus closure of stoma due to prolonged dislodgment Narrative Course During the course of the patients emergency department visit, the patients history, examination, and differential diagnosis were reviewed with the patient. The patient was placed on a cardiac cath lab technologist with oximetry and frequent blood pressure monitoring. The patient had IV access obtained and blood work sent for analysis. The patient's records were reviewed. In the discharge summary, and the procedure note, no documentation as the size of the PEG tube was made. We will review the records further to see if this can be identified. An ECG was done on arrival. The patient's ECG reveals a paced rhythm heart rate of 71, no acute ST segment changes. A 20 F PEG tube was reportedly in place according to the [facility] staff. The patients laboratory studies were reviewed and remarkable for a white count of 8.9, hemoglobin 12, platelets 212 with 77 neutrophils, basic metabolic profile is remarkable for BUN of 25, calcium 8.7 and glucose 85, PT 12.1, PTT 30.3 Radiology studies were reviewed and remarkable for an x-ray of the abdomen that shows a feeding tube that appears to be in the expected location without any extravasation, contrast is going into the proximal aspect of the small bowel. I review the record reveals that the patient's feeding tube was placed by . The patient will be instructed to follow-up with the order runner, call the office in the morning for an appointment. The patient is resting comfortably and feels better, is alert and in no distress. The patients results and examination findings were discussed with the patient. The repeat examination is unremarkable and benign. The history, exam, diagnostic testing, and current condition do not suggest any significant pathology to warrant further testing, continued ED treatment, admission, or surgical evaluation at this point. The vital signs have been stable. The patient does not have uncontrollable pain, intractable vomiting, or other significant symptoms. The patient's condition is stable and appropriate for discharge. The patient will pursue further outpatient evaluation with a primary care physician or other designated or consulting physician as indicated in the discharge instructions. The patient expressed understanding and was agreeable with this plan. Procedures Procedure Narrative Feeding tube replacement: A 20 F PEG tube was attempted to be replaced into the patient's stoma, after the stoma was cleansed and the dried blood removed. The stoma wound not accommodate the 20 [place]. It did accommodate a 14 tamazight Gaffney catheter. The position will be confirmed with contrast imaging of a single view of the abdomen. Diagnosis Primary Impression: Feeding tube dysfunction Qualified Codes: T85.598A - Other mechanical complication of other gastrointestinal prosthetic devices, implants and grafts, initial encounter Referrals: Tenzin Smith MD call for appointment Additional Instructions: Follow-up with the order runner placed the feeding tube for replacement of a PEG tube as soon as possible, in the meantime, the patient's feedings can be continued through the Gaffney catheter. Med/Other Pt SpecificInfo: No Change to Meds Disposition: 03 DISCHARGE TO SNF Condition: Stable Anna Lopez MD Aug 03, 2017 19:15
[2017-08-03] MEDS ORDERED: FURO20TA PEG (19:19)
[2017-08-03] MEDS ORDERED: JEVILIQ12 PEG (19:19)
[2017-08-03] MEDS ORDERED: GLYC3350 PEG (19:19)
[2017-08-03 19:58] LABS: AUTOMATED NEUTROPHIL # 6.8 TH/MM3 (1.8-7.7); BASOPHIL # 0.1 TH/MM3 (0-0.2); BASOPHIL % 0.7 % (0.0-2.0); EOSINOPHIL # 0.2 TH/MM3 (0-0.4); EOSINOPHIL % 1.9 % (0.0-4.0); HEMATOCRIT 35.7 % (39.0-51.0); HEMO FLAGS DIFF FINAL; LYMPHOCYTE # 1.2 TH/MM3 (1.0-4.8); MEAN CELL VOLUME 89.4 FL (80.0-100.0); MEAN CORPUSCULAR HEMOGLOBIN 30.1 PG (27.0-34.0); MEAN CORPUSCULAR HGB CONC 33.7 % (32.0-36.0); MONO % 7.4 % (0.0-8.0); PLATELET COUNT 212 TH/MM3 (150-450); RED BLOOD COUNT 3.99 MIL/MM3 (4.50-5.90); RED CELL DISTRIBUTION WIDTH 16.3 % (11.6-17.2); WHITE BLOOD COUNT 8.9 TH/MM3 (4.0-11.0)
[2017-08-03 20:22] LABS: BICARBONATE 25.2 MEQ/L (21.0-32.0); POTASSIUM 4.8 MEQ/L (3.5-5.1)
[2017-08-03 20:25] LABS: APTT (PATIENT) 30.3 SEC (24.3-30.1); INTERNATIONAL NORMALIZED RATIO 1.1 RATIO; PROTHROMBIN TIME - PATIENT 12.1 SEC (9.8-11.6)
--- NOTE | 2017-08-03 20:49 | RADRPT ---
EXAM DATE/TIME: 08/03/2017 20:22 [facility] COMPARISON: No previous studies available for comparison. INDICATIONS : Feeding tube placement MEDICAL HISTORY : Myocardial infarction. Congestive heart failure. Aneurysm, abdominal. CVA. Hypercholesterolemia. Ches t pain. Afib. HTN. COPD. Sleep apneaDyspnea. Arthritis. SURGICAL HISTORY : Pacemaker. CABG. Abdominal aortic aneurysm repair.Cardiac cath. Umbilical and right inguinal hernia r epairs ENCOUNTER: Initial ACUITY: 1 day PAIN SCORE: 0/10 LOCATION: Bilateral abdomen FINDINGS: Pacer leads and sternotomy wires are identified. Vascular calcifications are present. Nonobstructive bowel gas pattern. There is a presumed gastrostomy tube overlying the midline abdomen with contrast s een in the tube as well as within the proximal small intestine. No obvious contrast extravasation. CONCLUSION: Feeding tube as above overlies the expected location of the stomach. Thierry Keating MD on August 03, 2017 at 20:45 Board Certified Radiologist. This report was verified electronically.
[2017-08-03 21:45] VITALS: BP 118/76; PULSE 68; RESP 16; O2SAT 99
--- NOTE | 2017-08-03 21:58 | EKG ---
Date Performed: 08/03/2017 Time Performed: 19:46:20 PTAGE: 87 years EKG: ELECTRONIC VENTRICULAR PACEMAKER ABNORMAL RHYTHM ECG PREVIOUS TRACING : 06/29/2017 17.05 No significant change from previous tracing noted. DOCTOR: Juan Pablo Gonzalez Interpretating Date/Time 08/03/2017 21:57:38
== END 2017-08-04 07:32 ==
LOC: NEPE 18:55
DX: T85.598A Other mechanical complication of other gastrointestinal prosthetic devices, implants and grafts, initial encounter (principal); I48.91 Unspecified atrial fibrillation; E78.00 Pure hypercholesterolemia, unspecified; I11.0 Hypertensive heart disease with heart failure; I50.9 Heart failure, unspecified; J44.9 Chronic obstructive pulmonary disease, unspecified; I25.10 Atherosclerotic heart disease of native coronary artery without angina pectoris; K21.9 Gastro-esophageal reflux disease without esophagitis; Z86.73 Personal history of transient ischemic attack (TIA), and cerebral infarction without residual deficits
CPT/HCPCS: 43760; 74000; 80048; 85025; 85610; 85730; 93005; 99285; Q9963